=== PATIENT | male | born 1955 | race Caucasian/White ===

== ENCOUNTER → 2023-05-19 11:37 | Outpatient (REF) | payer MEDICARE, OTHER, SELFPAY ==
[2023-05-19 11:24] LABS: % Eosinophils 1.6 % (0-6); % Immature Granulocytes 0.3 % (0-0.5); % Neutrophils 79.1 % (42.2-75.2); Absolute Eosinophils 0.1 10^3/uL (0-0.7); Absolute Lymphocytes 0.6 10^3/uL (1.2-3.4); Absolute Monocytes 0.6 10^3/uL (0.1-0.6); Absolute Neutrophils 5.1 10^3/uL (1.4-6.5); Hematocrit 36.5 % (39.0-52.0); Hemoglobin 12.4 g/dL (13.0-18.0); Mean Corpuscular Hgb 30.5 pg (27.0-31.0); Mean Corpuscular Volume 89.9 fL (80.0-94.0); Mean Platelet Volume 8.9 fL (7.4-10.4); Platelet Count 177 10^3/uL (130-400); Red Blood Cell Count 4.06 10^6/uL (4.70-6.10); Red Cell Dist. Width 17.5 % (11.5-14.5); White Blood Cell Count 6.4 10^3/uL (4.8-10.8)
[2023-05-19 12:06] LABS: ALT (SGPT) 40 U/L (0-50); AST (SGOT) 51 U/L (17-59); Alkaline Phosphatase 82 U/L (38-126); Blood Urea Nitrogen 18 mg/dl (9-20); Calcium 9.2 mg/dl (8.4-10.2); Carbon Dioxide 25 mmol/L (22-30); Chloride 102 mmol/L (98-107); Glucose 84 mg/dl (70-99); Potassium 4.5 mmol/L (3.5-5.1); Sodium 137 mmol/L (135-145); Total Bilirubin 0.6 mg/dl (0.2-1.3); Total Protein 6.5 g/dl (6.3-8.2); eGFR > 60.00
[2023-05-19 12:36] LABS: TSH Reflex To Free T4 3.27 uIU/ml (0.47-4.68)
== END ==
LOC: OIDL 11:37
PROVIDERS: ATTENDING PHYSICIAN Internal Medicine Hematology & Oncology
DX: C79.9 Secondary malignant neoplasm of unspecified site (principal)
CPT/HCPCS: 80053; 84443; 85025

== ENCOUNTER → 2023-06-15 13:59 | Outpatient (REF) | payer MEDICARE, OTHER, SELFPAY ==
[2023-06-15 14:49] LABS: % Basophils 0.4 % (0-2); % Eosinophils 0.6 % (0-6); % Immature Granulocytes 0.6 % (0-0.5); % Neutrophils 78.4 % (42.2-75.2); Absolute Lymphocytes 0.8 10^3/uL (1.2-3.4); Absolute Monocytes 0.6 10^3/uL (0.1-0.6); Absolute Neutrophils 5.5 10^3/uL (1.4-6.5); Hematocrit 39.9 % (39.0-52.0); Hemoglobin 13.8 g/dL (13.0-18.0); Mean Corp Hgb Conc. 34.6 g/dL (33.0-37.0); Mean Corpuscular Hgb 31.4 pg (27.0-31.0); Mean Corpuscular Volume 90.7 fL (80.0-94.0); Mean Platelet Volume 8.6 fL (7.4-10.4); Nucleated Red Blood Cells % 0 % (-); Platelet Count 193 10^3/uL (130-400); Red Cell Dist. Width 14.3 % (11.5-14.5)
[2023-06-15 15:19] LABS: ALT (SGPT) 33 U/L (0-50); AST (SGOT) 40 U/L (17-59); Albumin 4.2 g/dl (3.5-5.0); Alkaline Phosphatase 99 U/L (38-126); Blood Urea Nitrogen 17 mg/dl (9-20); Calcium 9.6 mg/dl (8.4-10.2); Carbon Dioxide 25 mmol/L (22-30); Chloride 101 mmol/L (98-107); Glucose 115 mg/dl (70-99); Potassium 4.9 mmol/L (3.5-5.1); Sodium 133 mmol/L (135-145); Total Bilirubin 0.8 mg/dl (0.2-1.3); eGFR > 60.00
== END ==
LOC: REG 13:59
PROVIDERS: ATTENDING PHYSICIAN Internal Medicine Hematology & Oncology; FAMILY PHYSICIAN Physician Assistant
DX: C79.9 Secondary malignant neoplasm of unspecified site (principal); R59.9 Enlarged lymph nodes, unspecified; L02.214 Cutaneous abscess of groin; R88.8 Abnormal findings in other body fluids and substances; R97.0 Elevated carcinoembryonic antigen [CEA]; C44.82 Squamous cell carcinoma of overlapping sites of skin
CPT/HCPCS: 36415; 80053; 84443; 85025

== ENCOUNTER → 2023-07-06 17:14 | Outpatient (REF) | payer MEDICARE, OTHER, SELFPAY ==
[2023-07-06 17:43] LABS: % Basophils 0.5 % (0-2); % Eosinophils 0.6 % (0-6); % Immature Granulocytes 0.4 % (0-0.5); % Lymphocytes 10.4 % (20.5-51.1); % Monocytes 9.7 % (1.7-9.3); % Neutrophils 78.4 % (42.2-75.2); Absolute Eosinophils 0.1 10^3/uL (0-0.7); Absolute Lymphocytes 0.9 10^3/uL (1.2-3.4); Absolute Monocytes 0.8 10^3/uL (0.1-0.6); Absolute Neutrophils 6.5 10^3/uL (1.4-6.5); Hematocrit 43.6 % (39.0-52.0); Hemoglobin 14.3 g/dL (13.0-18.0); Mean Corp Hgb Conc. 32.8 g/dL (33.0-37.0); Mean Corpuscular Hgb 29.4 pg (27.0-31.0); Mean Corpuscular Volume 89.5 fL (80.0-94.0); Mean Platelet Volume 8.5 fL (7.4-10.4); Nucleated Red Blood Cells % 0 % (-); Platelet Count 247 10^3/uL (130-400); Red Blood Cell Count 4.87 10^6/uL (4.70-6.10); Red Cell Dist. Width 13.2 % (11.5-14.5); White Blood Cell Count 8.3 10^3/uL (4.8-10.8)
[2023-07-06 18:02] LABS: ALT (SGPT) 28 U/L (0-50); AST (SGOT) 28 U/L (17-59); Albumin 4.2 g/dl (3.5-5.0); Alkaline Phosphatase 91 U/L (38-126); Blood Urea Nitrogen 24 mg/dl (9-20); Calcium 9.7 mg/dl (8.4-10.2); Carbon Dioxide 27 mmol/L (22-30); Chloride 100 mmol/L (98-107); Glucose 96 mg/dl (70-99); Potassium 4.6 mmol/L (3.5-5.1); Sodium 140 mmol/L (135-145); Total Bilirubin 0.4 mg/dl (0.2-1.3); Total Protein 7.2 g/dl (6.3-8.2); eGFR > 60.00
[2023-07-06 18:29] LABS: TSH Reflex To Free T4 0.04 uIU/ml (0.47-4.68)
[2023-07-06 18:56] LABS: Free T4 2.85 ng/dl (0.78-2.19)
== END ==
LOC: REG 17:14
PROVIDERS: ATTENDING PHYSICIAN Internal Medicine Hematology & Oncology; FAMILY PHYSICIAN Physician Assistant
DX: C79.9 Secondary malignant neoplasm of unspecified site (principal); R59.9 Enlarged lymph nodes, unspecified; L02.214 Cutaneous abscess of groin; R88.8 Abnormal findings in other body fluids and substances; R97.0 Elevated carcinoembryonic antigen [CEA]; C44.82 Squamous cell carcinoma of overlapping sites of skin
CPT/HCPCS: 36415; 80053; 84439; 84443; 85025

== ENCOUNTER → 2023-07-17 08:31 | Outpatient (REF) | payer MEDICARE, OTHER, SELFPAY | LOC: WOUND 08:31 | PROVIDERS: ATTENDING PHYSICIAN Surgery; FAMILY PHYSICIAN Physician Assistant | DX: S31.109A Unspecified open wound of abdominal wall, unspecified quadrant without penetration into peritoneal cavity, initial encounter (principal); L59.8 Other specified disorders of the skin and subcutaneous tissue related to radiation; E11.69 Type 2 diabetes mellitus with other specified complication; C44.92 Squamous cell carcinoma of skin, unspecified; E66.01 Morbid (severe) obesity due to excess calories; I50.22 Chronic systolic (congestive) heart failure; Z68.41 Body mass index [BMI] 40.0-44.9, adult; I25.2 Old myocardial infarction; I10 Essential (primary) hypertension; Y83.8 Other surgical procedures as the cause of abnormal reaction of the patient, or of later complication, without mention of misadventure at the time of the procedure; X58.XXXA Exposure to other specified factors, initial encounter | CPT/HCPCS: 99204 ==

== ENCOUNTER → 2023-07-28 15:32 | Outpatient (REF) | payer MEDICARE, OTHER, SELFPAY ==
[2023-07-28 12:16] LABS: % Basophils 0.1 % (0-2); % Eosinophils 0.9 % (0-6); % Immature Granulocytes 0.7 % (0-0.5); % Lymphocytes 8.5 % (20.5-51.1); % Monocytes 9.8 % (1.7-9.3); Absolute Eosinophils 0.1 10^3/uL (0-0.7); Absolute Immature Granulocytes 0.1 10^3/uL (0-0.05); Absolute Lymphocytes 0.8 10^3/uL (1.2-3.4); Absolute Monocytes 0.9 10^3/uL (0.1-0.6); Absolute Neutrophils 7.4 10^3/uL (1.4-6.5); Hematocrit 38.3 % (39.0-52.0); Hemoglobin 13.1 g/dL (13.0-18.0); Mean Corp Hgb Conc. 34.2 g/dL (33.0-37.0); Mean Corpuscular Hgb 29.2 pg (27.0-31.0); Mean Corpuscular Volume 85.3 fL (80.0-94.0); Mean Platelet Volume 8.1 fL (7.4-10.4); Platelet Count 251 10^3/uL (130-400); Red Blood Cell Count 4.49 10^6/uL (4.70-6.10); Red Cell Dist. Width 13.3 % (11.5-14.5); White Blood Cell Count 9.2 10^3/uL (4.8-10.8)
[2023-07-28 14:40] LABS: ALT (SGPT) 26 U/L (0-50); AST (SGOT) 33 U/L (17-59); Albumin 3.8 g/dl (3.5-5.0); Alkaline Phosphatase 91 U/L (38-126); Blood Urea Nitrogen 26 mg/dl (9-20); Calcium 9.7 mg/dl (8.4-10.2); Carbon Dioxide 24 mmol/L (22-30); Chloride 98 mmol/L (98-107); Glucose 118 mg/dl (70-99); Potassium 5.2 mmol/L (3.5-5.1); Sodium 134 mmol/L (135-145); Total Bilirubin 0.5 mg/dl (0.2-1.3); Total Protein 6.7 g/dl (6.3-8.2); eGFR > 60.00
[2023-07-28 15:09] LABS: TSH Reflex To Free T4 < 0.02 uIU/ml (0.47-4.68)
[2023-07-28 15:38] LABS: Free T4 2.74 ng/dl (0.78-2.19)
== END ==
LOC: OIDL 15:32
PROVIDERS: ATTENDING PHYSICIAN Internal Medicine Hematology & Oncology
DX: C79.9 Secondary malignant neoplasm of unspecified site (principal)
CPT/HCPCS: 80053; 84439; 84443; 85025

== ENCOUNTER → 2023-08-17 16:22 | Outpatient (REF) | payer MEDICARE, OTHER, SELFPAY ==
[2023-08-17 17:06] LABS: % Basophils 0.8 % (0-2); % Eosinophils 1.6 % (0-6); % Immature Granulocytes 0.7 % (0-0.5); % Lymphocytes 15.6 % (20.5-51.1); % Monocytes 8.9 % (1.7-9.3); % Neutrophils 72.4 % (42.2-75.2); Absolute Basophils 0.1 10^3/uL (0-0.2); Absolute Eosinophils 0.1 10^3/uL (0-0.7); Absolute Monocytes 0.5 10^3/uL (0.1-0.6); Absolute Neutrophils 4.4 10^3/uL (1.4-6.5); Hematocrit 40.1 % (39.0-52.0); Hemoglobin 13.4 g/dL (13.0-18.0); Mean Corp Hgb Conc. 33.4 g/dL (33.0-37.0); Mean Corpuscular Hgb 28.3 pg (27.0-31.0); Mean Corpuscular Volume 84.6 fL (80.0-94.0); Mean Platelet Volume 8.6 fL (7.4-10.4); Nucleated Red Blood Cells % 0 % (-); Platelet Count 210 10^3/uL (130-400); Red Blood Cell Count 4.74 10^6/uL (4.70-6.10); Red Cell Dist. Width 14.8 % (11.5-14.5); White Blood Cell Count 6.1 10^3/uL (4.8-10.8)
[2023-08-17 17:32] LABS: ALT (SGPT) 23 U/L (0-50); AST (SGOT) 32 U/L (17-59); Albumin 4.1 g/dl (3.5-5.0); Alkaline Phosphatase 81 U/L (38-126); Blood Urea Nitrogen 22 mg/dl (9-20); Calcium 9.7 mg/dl (8.4-10.2); Carbon Dioxide 24 mmol/L (22-30); Chloride 101 mmol/L (98-107); Glucose 92 mg/dl (70-99); Potassium 4.7 mmol/L (3.5-5.1); Sodium 136 mmol/L (135-145); Total Bilirubin 0.5 mg/dl (0.2-1.3); eGFR > 60.00
[2023-08-17 17:58] LABS: TSH Reflex To Free T4 1.74 uIU/ml (0.47-4.68)
== END ==
LOC: REG 16:22
PROVIDERS: ATTENDING PHYSICIAN Internal Medicine Hematology & Oncology; FAMILY PHYSICIAN Physician Assistant
DX: C79.9 Secondary malignant neoplasm of unspecified site (principal); R59.9 Enlarged lymph nodes, unspecified; L02.214 Cutaneous abscess of groin; R88.8 Abnormal findings in other body fluids and substances; R97.0 Elevated carcinoembryonic antigen [CEA]; C44.82 Squamous cell carcinoma of overlapping sites of skin
CPT/HCPCS: 36415; 80053; 84443; 85025

== ENCOUNTER → 2023-08-18 12:09 | Outpatient (REF) | payer MEDICARE, OTHER, SELFPAY ==
[2023-08-18 13:50] LABS: ALT (SGPT) 25 U/L (0-50); AST (SGOT) 31 U/L (17-59); HDL Cholesterol 52 mg/dl; LDL Cholesterol, Calculated 48 mg/dl; Total Cholesterol 125 mg/dl (50-199); Triglyceride 128 mg/dl (10-149); Very Low Density Lipoprotein 25 mg/dl (0-30)
[2023-08-18 14:22] LABS: TSH Reflex To Free T4 1.89 uIU/ml (0.47-4.68)
[2023-08-18 14:28] LABS: Glycohemoglobin (HgbA1c) 6.8 % (4.0-5.6)
== END ==
LOC: REG 12:09
PROVIDERS: ATTENDING PHYSICIAN Internal Medicine Cardiovascular Disease; FAMILY PHYSICIAN Physician Assistant
DX: I48.0 Paroxysmal atrial fibrillation (principal); Z95.5 Presence of coronary angioplasty implant and graft; J44.9 Chronic obstructive pulmonary disease, unspecified; I50.22 Chronic systolic (congestive) heart failure; I25.5 Ischemic cardiomyopathy; I25.2 Old myocardial infarction; I25.10 Atherosclerotic heart disease of native coronary artery without angina pectoris; I10 Essential (primary) hypertension; E78.5 Hyperlipidemia, unspecified; E11.69 Type 2 diabetes mellitus with other specified complication; Z79.01 Long term (current) use of anticoagulants; R74.8 Abnormal levels of other serum enzymes; C44.92 Squamous cell carcinoma of skin, unspecified
CPT/HCPCS: 36415; 80061; 83036; 84443; 84450; 84460

== ENCOUNTER → 2023-08-25 12:16 | Outpatient (REF) | payer MEDICARE, OTHER, SELFPAY | LOC: RAD 12:16 | PROVIDERS: ATTENDING PHYSICIAN Internal Medicine Cardiovascular Disease | DX: I48.0 Paroxysmal atrial fibrillation (principal); Z79.899 Other long term (current) drug therapy | CPT/HCPCS: 71046 ==

== ENCOUNTER → 2023-09-07 16:26 | Outpatient (REF) | payer MEDICARE, OTHER, SELFPAY ==
[2023-09-07 17:09] LABS: % Basophils 0.6 % (0-2); % Immature Granulocytes 0.6 % (0-0.5); % Lymphocytes 11.1 % (20.5-51.1); % Monocytes 10.8 % (1.7-9.3); % Neutrophils 75.9 % (42.2-75.2); Absolute Eosinophils 0.1 10^3/uL (0-0.7); Absolute Lymphocytes 0.7 10^3/uL (1.2-3.4); Absolute Monocytes 0.7 10^3/uL (0.1-0.6); Absolute Neutrophils 4.8 10^3/uL (1.4-6.5); Hematocrit 40.3 % (39.0-52.0); Hemoglobin 13.6 g/dL (13.0-18.0); Mean Corp Hgb Conc. 33.7 g/dL (33.0-37.0); Mean Corpuscular Hgb 28.2 pg (27.0-31.0); Mean Corpuscular Volume 83.4 fL (80.0-94.0); Mean Platelet Volume 8.6 fL (7.4-10.4); Nucleated Red Blood Cells % 0 % (-); Platelet Count 196 10^3/uL (130-400); Red Blood Cell Count 4.83 10^6/uL (4.70-6.10); White Blood Cell Count 6.3 10^3/uL (4.8-10.8)
[2023-09-07 17:29] LABS: ALT (SGPT) 26 U/L (0-50); AST (SGOT) 29 U/L (17-59); Albumin 4.2 g/dl (3.5-5.0); Alkaline Phosphatase 90 U/L (38-126); Blood Urea Nitrogen 31 mg/dl (9-20); Calcium 9.8 mg/dl (8.4-10.2); Carbon Dioxide 22 mmol/L (22-30); Chloride 102 mmol/L (98-107); Glucose 145 mg/dl (70-99); Sodium 136 mmol/L (135-145); Total Bilirubin 0.7 mg/dl (0.2-1.3); eGFR 59.47
[2023-09-07 17:58] LABS: TSH Reflex To Free T4 4.44 uIU/ml (0.47-4.68)
== END ==
LOC: REG 16:26
PROVIDERS: ATTENDING PHYSICIAN Internal Medicine Hematology & Oncology; FAMILY PHYSICIAN Physician Assistant
DX: C79.9 Secondary malignant neoplasm of unspecified site (principal); R59.9 Enlarged lymph nodes, unspecified; L02.214 Cutaneous abscess of groin; R88.8 Abnormal findings in other body fluids and substances; R97.0 Elevated carcinoembryonic antigen [CEA]; C44.82 Squamous cell carcinoma of overlapping sites of skin
CPT/HCPCS: 36415; 80053; 84443; 85025

== ENCOUNTER → 2023-09-08 15:35 | Outpatient (REF) | payer MEDICARE, OTHER, SELFPAY ==
[2023-09-08 14:24] LABS: % Basophils 0.2 % (0-2); % Eosinophils 0.8 % (0-6); % Immature Granulocytes 0.5 % (0-0.5); % Lymphocytes 11.9 % (20.5-51.1); % Monocytes 11.3 % (1.7-9.3); % Neutrophils 75.3 % (42.2-75.2); Absolute Eosinophils 0.1 10^3/uL (0-0.7); Absolute Lymphocytes 0.7 10^3/uL (1.2-3.4); Absolute Monocytes 0.7 10^3/uL (0.1-0.6); Absolute Neutrophils 4.6 10^3/uL (1.4-6.5); Hematocrit 39.3 % (39.0-52.0); Hemoglobin 13.1 g/dL (13.0-18.0); Mean Corp Hgb Conc. 33.3 g/dL (33.0-37.0); Mean Corpuscular Hgb 28.2 pg (27.0-31.0); Mean Corpuscular Volume 84.7 fL (80.0-94.0); Mean Platelet Volume 8.8 fL (7.4-10.4); Platelet Count 201 10^3/uL (130-400); Red Blood Cell Count 4.64 10^6/uL (4.70-6.10); White Blood Cell Count 6.1 10^3/uL (4.8-10.8)
[2023-09-08 14:48] LABS: ALT (SGPT) 23 U/L (0-50); AST (SGOT) 26 U/L (17-59); Alkaline Phosphatase 91 U/L (38-126); Blood Urea Nitrogen 33 mg/dl (9-20); Calcium 9.6 mg/dl (8.4-10.2); Carbon Dioxide 20 mmol/L (22-30); Chloride 103 mmol/L (98-107); Glucose 129 mg/dl (70-99); Potassium 4.8 mmol/L (3.5-5.1); Sodium 137 mmol/L (135-145); Total Bilirubin 0.7 mg/dl (0.2-1.3); Total Protein 6.9 g/dl (6.3-8.2); eGFR > 60.00
== END ==
LOC: OIDL 15:35
PROVIDERS: ATTENDING PHYSICIAN Internal Medicine Hematology & Oncology
DX: C79.9 Secondary malignant neoplasm of unspecified site (principal)
CPT/HCPCS: 80053; 85025

== ENCOUNTER 2023-09-20 23:50 | Inpatient (IN) | payer MEDICARE, OTHER, SELFPAY ==
[2023-09-20] VITALS (12 sets, daily range): BP systolic 83–175; BP diastolic 38–68; BMI 37.3
[2023-09-20 17:23] LABS: % Basophils 0.3 % (0-2); % Eosinophils 0.2 % (0-6); % Immature Granulocytes 0.6 % (0-0.5); % Lymphocytes 7.9 % (20.5-51.1); % Monocytes 2.4 % (1.7-9.3); % Neutrophils 88.6 % (42.2-75.2); Absolute Immature Granulocytes 0.1 10^3/uL (0-0.05); Absolute Lymphocytes 0.7 10^3/uL (1.2-3.4); Absolute Monocytes 0.2 10^3/uL (0.1-0.6); Absolute Neutrophils 7.7 10^3/uL (1.4-6.5); Hematocrit 47.4 % (39.0-52.0); Hemoglobin 15.5 g/dL (13.0-18.0); Mean Corp Hgb Conc. 32.7 g/dL (33.0-37.0); Mean Corpuscular Volume 85.6 fL (80.0-94.0); Mean Platelet Volume 8.5 fL (7.4-10.4); Nucleated Red Blood Cells % 0 % (-); Platelet Count 246 10^3/uL (130-400); Red Blood Cell Count 5.54 10^6/uL (4.70-6.10); Red Cell Dist. Width 15.8 % (11.5-14.5); White Blood Cell Count 8.7 10^3/uL (4.8-10.8)
[2023-09-20 17:32] LABS: INR 2.84; PT 29.8 Sec (11.4-14.6)
[2023-09-20 17:36] LABS: Lactic Acid 5.1 mmol/L (0.7-2.0)
[2023-09-20 17:38] LABS: ALT (SGPT) 328 U/L (0-50); AST (SGOT) 729 U/L (17-59); Albumin 4.7 g/dl (3.5-5.0); Alkaline Phosphatase 279 U/L (38-126); Blood Urea Nitrogen 29 mg/dl (9-20); Calcium 9.5 mg/dl (8.4-10.2); Carbon Dioxide 20 mmol/L (22-30); Chloride 103 mmol/L (98-107); Estimated Creatinine Clearance 86 ml/min; Glucose 189 mg/dl (70-99); Potassium 5.2 mmol/L (3.5-5.1); Sodium 139 mmol/L (135-145); Total Bilirubin 1.7 mg/dl (0.2-1.3); eGFR > 60.00
[2023-09-20 17:46] LABS: NT-proBNP 1870 pg/ml; Troponin I 0.015 ng/ml
[2023-09-20 18:12] LABS: Lipase 153 U/L (23-300)
[2023-09-20] MEDS: NSS 1000 IV ×2 (18:12→22:51)
--- NOTE | 2023-09-20 18:20 | ED.GENMED ---
History of Present Illness
General
Chief Complaint: Breathing Problem
Source: patient and spouse
Exam Limitations: none
Time Seen by Provider: 09/20/23 17:50
Nursing documentation reviewed up to this point in time: agreed with
Travel History
Have you had any contact with someone who has COVID-19?: No
Do you have any symptoms of coronavirus? Fever > 100 degrees, chills, cough, shortness of breath, sore throat, loss of taste or smell, muscle aches, or headache?: No
History of Present Illness
History of Present Illness:
Pleasant 68-year-old male that presents with chills with some nausea that has been present since noon. Patient took a nap and woke up with continual chills. He does have a history of COPD but reports shortness of breath since around 4 PM. Patient
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 He has had recurrent left groin fluid collections. Unfortunately the primary is unknown. He has had surgical drainage in October with chemotherapy and radiation therapy that ended this past
March. Patient had a surgical procedure in May 13 2 incise and drain this left groin abscess. Patient follows with [facility] and has weekly packing. They use iodoform but today he states that the wound was draining more
copiously.
Vital signs are stable. Patient not hypoxic
Nursing note reviewed. I agree with nursing documentation up to this point in time.
Home Meds and allergies reviewed.
NUMBER AND COMPLEXITY OF PROBLEMS ADDRESSED AT THE ENCOUNTER
� Chronic conditions affecting care: COPD, subacute skin wound to the left lower quadrant, diabetic, extensive cardiac history, squamous cell cancer
� Acute Exacerbation and/or Progression of Chronic Illness:
� Differential Diagnosis includes: Reaccumulation of fluids, liver function issues
AMOUNT AND/OR COMPLEXITY OF DATA TO BE REVIEWED AND ANALYZED
I performed an independent evaluation of the following and my interpretation is:
EKG: EKG shows sinus rhythm rate of 79 with a lot of artifact. Normal axis, normal intervals no evidence of acute ischemia present. This will be repeated.
CT:
X-rays:
Ultrasound:
Laboratory Studies: T. bili is 1.7, AST is 729, ALT is 328, alk phos is 279. proBNP is 1870, troponin 0.015. Lipase is 153.
Other:
Review of other/old records:
Clinical information was obtained by an independent historian:
Prescriptions/Medications Considered but not given:
Further testing considered but not performed:
RISK OF COMPLICATIONS AND/OR MORBIDITY OR MORTALITY OF PATIENT MANAGEMENT
Social determinants of health affecting care: Good Social Support
Discussion with other providers:
Escalation of care including admission/observation vs risk of discharge considered:
CRITICAL CARE NOTE:
Total Time (exclusive of procedures):
Update:
Past History
Past History
ED Past Medical History: Arrthythmia (Atrial fibrillation), CAD, CHF, COPD, HTN, NIDDM and CO
ED Past Surgical History: Cardiac (Cardioversion)
Social History
Tobacco: Former smoker
Alcohol: None
Drug: None
Personal:
Living: with family
Family History
Family History: Other (Noncontributory)
Phy Exam
General Physical Exam
General Presentation: well appearing
General age: appears stated age
General Skin: warm
General Habitus: normal
General Mental: alert
General Hydration: appears well hydrated
ENT Exam
ENT Exam: EOMI, pharynx normal, neck supple and normocephalic
Eye Exam
Eye Exam: PERRL, cornea clear and conjunctiva normal
Cardiovascular Exam
Cardiovascular Exam: regular rate/rhythm, no edema, no murmur and normal peripheral pulses
Pulmonary Exam
Pulmonary Exam: lungs clear
Cough: coarse cough
Gastrointestinal Exam
Gastrointestinal Exam: normal bowel sounds and non tender
Palpation: left upper quadrant: Moderate tenderness and right upper quadrant: Moderate tenderness
Neurological Exam
Neurological Exam: alert and oriented x3
Musculoskeletal Exam
Musculoskeletal Exam: full ROM
Skin Exam
Skin Exam: normal color and warm/dry
Psychiatric Exam
Psychiatric Exam: normal mood/affect
Scores
Heart Failure Risk
Heart Failure Risk Score: Not Applicable
Course
Orders/Labs/Results
Orders:
Orders
09/20/23 16:44
Electrocardiogram (*1) Urgent
Reason for Study: Other
Other Reason for Exam: Respiratory Distress
EKG- Treatment ONCE
CR Chest - 2 Views Urgent
Comment:
Reason For Exam: respiratory distress
09/20/23 17:12
Complete Blood Count/With Diff Urgent
Comprehensive Metabolic Panel Urgent
Lactic Acid Q4H
Comment: WITH 1ST SET OF BLOOD CULTURES,CANCEL 2ND LACTIC ACID IF FIRST <2
Lipase Urgent
NT-proBNP Urgent
Prothrombin Time Urgent
Troponin I Urgent
Blood Culture Q30M
NIMO Source: Blood/Venous
Specimen Description:
Comment: FROM SEPARATE SITES
09/20/23 17:53
Add On- LAB Urgent
Tests Added?: lipase
09/20/23 18:07
0.9% Sodium Chloride 1000 ml [Nss] 1,000 ml IV BOLUS
US Abdomen Complete/Upper Urgent
Comment:
Reason For Exam: elevated LFT.
09/20/23 18:18
CT Abd/pelvis W Iv Cont Urgent
Comment:
Reason For Exam: llq woound with purulent drainage
09/20/23 18:19
0.9% Sodium Chloride 1000 ml [Nss] 1,500 ml IV BOLUS
09/20/23 18:22
Blood Culture Q30M
NIMO Source: Blood/Venous
Specimen Description:
Comment: FROM SEPARATE SITES
09/20/23 18:30
EKG [Electrocardiogram (*1)] Urgent
Reason for Study: Fatigue / Weakness
EKG- Treatment ONCE
09/20/23 18:40
Piperacillin/Tazo 4.5 Gram [Zosyn] 4.5 gram in 100 ml IV NOW
09/20/23 19:00
Blood Culture Urgent
NIMO Source: Blood/Venous
Specimen Description:
Date Specimen was Collected: 09/20/23
Time Specimen was Collected: 18:58
Wound Culture [Wound/Abscess/Other Culture] Urgent
NIMO Source: Abdomen
Specimen Description:
Date Specimen was Collected: 09/20/23
Time Specimen was Collected: 18:58
09/20/23 20:17
Acetaminophen [Tylenol] 650 mg PO NOW STA
09/20/23 20:46
Lactic Acid Q4H
Comment: WITH 1ST SET OF BLOOD CULTURES,CANCEL 2ND LACTIC ACID IF FIRST <2
09/20/23 20:47
Lorazepam [Ativan] 1 mg IV NOW STA
09/20/23 22:50
0.9% Sodium Chloride 1000 ml [Nss] 1,000 ml IV BOLUS
09/20/23 23:40
Admit/Transfer Patient As Directed
Co-Sign Provider:
Level of Care: Inpatient admission
Assign to:: ICU
Physician / Group: Christian
Diagnosis: Sepsis, Acute Cholecystitis, L Groin Abscess
Reason for Hospitalization: Sepsis, Acute Cholecystitis, L Groin Abscess
Expected length of stay greater than two midnights?: Yes
ELOS- Estimated Length of Stay in days: 5
I certify the patient meets the requirements for IP care: Yes
09/20/23 23:41
Code Status As Directed
Resuscitation Status: Full Code
09/20/23 23:53
NORepinephrine 4 MG/250 ML [Levophed] 4 mg in 250 ml IV PER PROTOCOL
Initial dose in mcg/min, then titrate:: 5
Titrate to keep:: SBP > 90 mmHg
Titrate by mcg/min:: 1-2 mcg/min
Frequency of titrations (minutes):: 5
Maximum dose in ICU in mcg/min:: 30
Maximum dose in IMU in mcg/min:: 8
Maximum dose in IVU in mcg/min:: 4
Begin to taper infusion when:: Remained at goal for 4hrs
Taper by mcg/min:: 1-2 mcg/min
Frequency of taper (minutes) if patient maintains goal:: 30
Taper to off?: Yes
If infusion off & no longer maintaining goal:: Contact Provider
09/21/23 01:37
0.9% Sodium Chloride 1000 ml [Nss] 1,000 ml IV 100 mls/hr
Acetaminophen [Tylenol] 650 mg PO Q4HPRN PRN
Dextrose 50%-Water [Dextrose 50% Syringe] 12.5 grams IV [id number] PRN
Glucagon [GlucaGen] 1 mg IM PRN PRN
HYDROmorphone [Dilaudid] 0.5 mg IV Q4HPRN PRN
Ondansetron Injectable [Zofran] 4 mg IV Q6HPRN PRN
VANCOMYCIN Pharmacy to Dose [VANCOCIN Pharmacy to Dose] 1 each Pharmacy To Prepare [Call Pharmacy To Prepare] 0 ml IV PER PROTOCOL
09/21/23 01:37
Consult Notification Routine
Specialty to Notify: Gastroenterology
Date consulting provider notified: 09/21/23
Time consulting provider notified: 08:37
Notified:: Provider
Consult Notification Routine
Specialty to Notify: Hair Cutter
Date consulting provider notified: 09/21/23
Time consulting provider notified: 08:37
Notified:: Provider
GASTROINTESTINAL CONSULT Routine
Consulting Provider: Miguel Loo
Was physician already notified: No
Reason for consult: Abnormal LFTs, Cholecystitis
Hair Cutter Consult Routine
Consulting Provider: Missael Li
Was physician already notified: No
Reason for consult: Septic shock
SURGICAL CONSULT Routine
Consulting Provider: Jesus Sam
Was physician already notified: Yes
Reason for consult: Cholecystitis / L Groin Abscess
Activity As Directed
Activity Level: Bedrest
Bedside Glucose Monitoring As Directed
Frequency: AC&HS
Additional Instructions:: Change to q6h if pt on TPN, tube feeding or not eating
Bladder Scan As Directed
Follow Bladder Retention/Intermittent Cath Algorithm?: Yes
PRN if no void in __ hours: 6
Frequency: Per Retention Algorithm
If Bladder Scan Result >: 400
then:: Straight cath
EKG with chest pain [ECG as needed] As Directed
ECG as needed for:: Chest Pain
I/O [Intake/ Output] As Directed
Frequency: Per unit guidelines
Pneumatic Compression Sleeves As Directed
Type: Knee high
Straight Cath As Directed
Frequency: Per Retention Algorithm
Additional Instructions: straight cath as needed per acute urinary retention algorithm for 24 hrs
Additional Instructions: for bladder scan greater than 400 mL
Vital Signs As Directed
Frequency: Per unit guidelines
Weight As Directed
Frequency: Daily
Incentive Spirometry [Rx Incentive Spirometry] [RESP] Routine
Frequency: q1h while awake
Oxygen Therapy [O2 Therapy] [RESP] Routine
Titrate/Wean O2 to maintain O2 sat greater than (%): 94
DX Deep Vein Thrombosis Video Routine
09/21/23 02:00
Piperacillin/Tazo 4.5 Gram [Zosyn] 4.5 gram in 100 ml IV Q6H
09/21/23 Breakfast
NPO
Allow oral meds: Yes
Allow clear liquids: Sips of Clears
Insulin Aspart Corrective Mod [Novolog Flexpen-Moderate Resistance] See Protocol SC Q6
09/21/23 06:07
Prothrombin Time IN AM
09/21/23 06:08
Complete Blood Count/No Diff IN AM
Glycohemoglobin (HgbA1c) IN AM
09/21/23 08:00
Pantoprazole [Protonix IV] 40 mg IV DAILY
09/22/23 03:47
Prothrombin Time IN AM
09/23/23 02:46
Prothrombin Time IN AM
09/24/23 06:00
Prothrombin Time IN AM
Abnormal Lab Results
09/20/23 09/20/23
17:12 20:46
MCHC 32.7 L g/dL
(33.0-37.0)
RDW 15.8 H %
(11.5-14.5)
Abs Immat Gran (auto) 0.1 H 10^3/uL
(0-0.05)
Absolute Neuts (auto) 7.7 H 10^3/uL
(1.4-6.5)
Absolute Lymphs (auto) 0.7 L 10^3/uL
(1.2-3.4)
Immature Gran % 0.6 H %
(0-0.5)
Neutrophils % 88.6 H %
(42.2-75.2)
Lymphocytes % 7.9 L %
(20.5-51.1)
PT 29.8 H Sec
(11.4-14.6)
Potassium 5.2 H mmol/L
(3.5-5.1)
Carbon Dioxide 20 L mmol/L
(22-30)
BUN 29 H mg/dl
(9-20)
Glucose 189 H mg/dl
(70-99)
Lactic Acid 5.1 H* mmol/L 2.7 H mmol/L
(0.7-2.0) (0.7-2.0)
Total Bilirubin 1.7 H mg/dl
(0.2-1.3)
AST 729 H* U/L
(17-59)
ALT 328 H U/L
(0-50)
Alkaline Phosphatase 279 H U/L
(38-126)
09/20/23 17:12
09/20/23 17:12
Vital Signs
Initial and Last Documented VS:
Initial Vital Signs
Temp Pulse Resp BP Pulse Ox
97.9 F 72 24 96/64 98
09/20/23 16:41 09/20/23 16:41 09/20/23 16:41 09/20/23 16:41 09/20/23 16:41
Last Documented Vital Signs
Temp Pulse Resp BP Pulse Ox
98.5 F 56 17 152/62 96
09/23/23 03:03 09/23/23 04:00 09/23/23 04:00 09/23/23 03:03 09/22/23 20:12
*Radiology
Radiology exam reviewed: radiology read reviewed
*Pulse Oximetry
Patient hypoxic: no
*Critical Care Note
Total Time (30-74mins, 75-104mins- exclusive of procedures): 30
comment:
Critical care statement: A total of 30 minutes of critical care time was provided for this patient. This time is separate from time utilized to perform the aforementioned documented procedures. Aggregate critical care time includes only time
during which I was engaged in work directly related to the patient's care, as described above, whether at the bedside or elsewhere in the Emergency Department.
Patient Management
Social determinants of health affecting care: Strong social support
Discussion with other providers: Hospitalist and Edge Burnisher (Cecy)
Update Note
Update Note:
IMPRESSION:
1. SEVERE DIFFUSE LIVER DISEASE.
2. Distended gallbladder and mild diffuse gallbladder wall thickening.
3. No sonographic evidence for biliary obstruction.
Patient received a dose of Ativan as he was agitated.
[facility] texted Dr. Sam- who agreed with plan.
ED Attending Note
-
Portions of this chart may have been created with voice recognition software.� Occasional wrong word or��sound alike� substitutions may have occurred due to the inherent limitations of voice recognition software.
Discharge Plan
Departure
Patient Disposition: Admit
Date of Disposition: 09/20/23
Time of Disposition: 22:13
Presentation/result/management discussed w/ accepting MD/DO: Hospitalist
Condition: Good
Discharge Problem:
Abscess of left groin, Elevated liver function tests, Acute hyperkalemia, Abdominal pain
Interventions
Interventions:
*General Assessment Last Done: 09/20/23 18:25
*Neglect/Abuse Screening Last Done: 09/20/23 16:41
ED- Fall Risk Assessment Last Done: 09/20/23 16:41
*Nursing Disposition Last Done: 09/21/23 01:14
ED- Cardiac Assessment Last Done: 09/20/23 23:42
ED- Pulmonary Assessment Last Done: 09/20/23 23:42
Discharge Date and Time
Discharge Date/Time: 09/21/23 01:18
[2023-09-20] MEDS: NSS 1500 IV (18:24)
[2023-09-20] MEDS: ZOSYN 100 IV (18:56)
[2023-09-20] MEDS: TYLENOL 650 MG PO (20:43)
[2023-09-20] MEDS: ATIVAN 1 MG IV (20:49)
[2023-09-20 21:12] LABS: Lactic Acid 2.7 mmol/L (0.7-2.0)
--- NOTE | 2023-09-20 23:52 | HPS.HSE ---
Family Physician
-
Family Physician: Jil Trotter
Chief Complaint
-
Nausea, chills
History of Present Illness
Patient is a 68y M with PMH significant for ASCVD, A-Fib, DM-II and now-chronic L groin abscess who presents to ED complaining of nausea, chills and SOB. Patient states that he was feeling fairly well yesterday. Today he felt some mild nausea
in the AM. He took a nap and when he woke he had shaking chills and nausea. He felt SOB and presented to the ED for further evaluation. He denies any chest pain, cough, etc.
Patient has a L groin wound for which he has been followed at [facility]. He has had issues with recurrent fluid accumulation requiring drain placement. His most recent drain was removed about 2 weeks ago.
He does state that he has some persistent drainage from the L groin site.
He denies any changes to his medications since his last visit here in April.
In the ED, patient is noted to be hypotensive despite fluid administration with elevated lactate and markedly abnormal LFTs.
Medical History
Past Medical History
Past Medical History: Reports Other
Additional Past Medical History:
ASCVD
Chronic HFmrEF
Obesity
Basal cell carcinoma of the left inguinal area
Osteoarthritis
Hypertension
History of GI bleed
Atrial Fibrillation
COPD
DM-II
Past Surgical History: Reports Other
Additional Past Surgical History:
Cardiac cath and stenting
Left knee MCL repair
Bilateral inguinal hernia repair
I&D and incision of the left inguinal hernia and abscesses cancer
I&D Left Groin Abscess (04/2023)
Social History
Tobacco: Non-smoker
Alcohol: Occasional (Rare)
Drug: None
Personal:
Living: With Family
Family History
Family History: CAD, Diabetes and Hypertension
Allergies / Home Medications
Allergies reflects when Allergies were last updated in [facility].
Home Medications with original date entered in [facility]
Allergy/Medication List:
Allergies
Allergy/AdvReac Type Severity Reaction Status Date / Time
No Known Allergies Allergy Verified 09/20/23 16:41
Home Medications
metformin 1,000 mg tablet 1,000 mg PO BIDWMEAL Diabetes 04/15/16
atorvastatin 80 mg tablet 80 mg PO QPM #30 tabs 11/13/16
amiodarone 200 mg tablet (Pacerone) 200 mg PO DAILY Arrhythmia 01/15/20
dapagliflozin propanediol 10 mg tablet (Farxiga) 10 mg PO DAILY Diabetes ##0 01/15/20
glipizide 10 mg tablet, extended release 24 hr 10 mg PO DAILY Diabetes ##0 01/15/20
lisinopril 40 mg tablet 40 mg PO DAILY Blood pressure 01/15/20
umeclidinium 62.5 mcg-vilanterol 25 mcg/actuation powdr for inhalation (Anoro Ellipta) 1 puff inhalation R DAILY Lung/breathing issues 01/15/20
warfarin 5 mg tablet (Jantoven) 5 mg PO SUTUTHFRSA@1800 Blood clot prevention/tx 01/15/20
metoprolol succinate 50 mg tablet,extended release 24 hr 50 mg PO HS Blood Pressure 10/22/22
metoprolol succinate 25 mg tablet,extended release 24 hr 25 mg PO DAILY Blood Pressure 10/24/22
albuterol sulfate 90 mcg/actuation aerosol inhaler 2 puff inhalation R Q6HPRN PRN sob/wheezing 09/20/23
warfarin 5 mg tablet 2.5 mg PO WE@1800 09/20/23
Review of Systems
-
History Source: Patient
A 12 point ROS was completed and negative except as noted: Yes
Constitutional: Reports Fever, Fatigue and Chills
EENT: Denies Sore Throat
Respiratory: Reports Trouble Breathing; Denies Cough
Cardiac: Denies Chest Pain or Palpitations
Abdomen/GI: Reports Abdominal Pain, Nausea and Anorexia; Denies Vomiting, Diarrhea, Constipated, Bloody Stools or Black Stools
: Denies Dysuria, Frequency or Flank Pain
Musculoskeletal: Denies Joint Pain or Edema
Skin: Reports Other (Groin wound / drainage - chronic and unchanged per patient.)
Neurological: Denies Dizzy or Headache
Psych: Denies Depression or Anxiety
Physical Exam
Vital Signs
Vital Signs
Temp Pulse Resp BP Pulse Ox
101.9 F H 63 26 88/38 95
09/20/23 23:15 09/20/23 23:18 09/20/23 23:18 09/20/23 23:18 09/20/23 23:42
Physical Exam
General: Other (68y M ill-appearing. )
HEENT: Other (Thick neck. Dry MM.)
Respiratory: Other (Decreased at bases - otherwise clear.)
Cardiac: S1/S2 and Regular Rhythm; No Murmur
GI: Other (Obese, Pos tenderness in the RUQ and the LLQ.)
Musculoskeletal: No Clubbing, No Cyanosis and No Edema
Skin: Other (L groin with deep wound packed with gauze. Malodorous yellow drainage appreciated. No bleeding.)
Neuro: AO x 3
Laboratory Results
-
09/20/23 17:12
09/20/23 17:12
Laboratory Results
PT 29.8 Sec (11.4-14.6) H 09/20/23 17:12
INR 2.84 09/20/23 17:12
Lactic Acid 2.7 mmol/L (0.7-2.0) H 09/20/23 20:46
Total Bilirubin 1.7 mg/dl (0.2-1.3) H 09/20/23 17:12
AST 729 U/L (17-59) H* 09/20/23 17:12
ALT 328 U/L (0-50) H 09/20/23 17:12
Alkaline Phosphatase 279 U/L (38-126) H 09/20/23 17:12
Troponin I 0.015 ng/ml 09/20/23 17:12
Lipase 153 U/L (23-300) 09/20/23 17:12
Impression/Plan
-
A/P: Patient is a 68y M with PMH significant for ASCVD, A-Fib, DM-II and L groin abscess who presents to ED complaining of shaking chills, nausea and SOB.
Septic Shock
- Admit to the ICU for further evaluation and treatment.
- Patient presented with fever, tachypnea, lactic acidosis and hypotension refractory to volume support.
- Potential sources of infection include cholecystitis versus recurrent L groin abscess.
- Supportive care including IVFs, pressor support, antipyretics, etc.
- Would consider PICC placement in the AM if still requiring pressors.
- Treat infectious sources as outlined below.
- Residential Coordinator evaluation.
- Follow for clinical improvement.
Acute Cholecystitis
Abnormal LFTs
- Markedly elevated LFTs from labs done only a few weeks ago.
- No evident new meds by list or patient recollection.
- Pos RUQ tenderness on exam and imaging suggests wall thickening / pericholecystic fluid.
- IV abx with Zosyn.
- GI and Surgery consulted for further evaluation / recommendations.
- Follow for improvement in LFTs / clinical changes.
Left Groin Abscess
- Site of initial skin cancer excision - since developed into chronic abscess.
- Had I&D done here April 2023. Cultures at that time grew SCN.
- Currently followed at [facility] and had most recent drain pulled about 2 weeks ago.
- Wound packed with gauze. Pos purulent appearing drainage.
- Surgery eval as noted above for wound care / ? repeat I&D.
- Consider IR eval for drain replacement - though wound already open to the surface.
- Follow-up repeat culture data.
ASCVD
Chronic HFmrEF
Paroxysmal Atrial Fibrillation
Benign Hypertension (currently hypotensive)
- No current complaints of chest pain. Initial troponin unremarkable despite acute illness.
- Hold PO meds acutely - including amiodarone, metoprolol, etc.
- Follow for improvement in sepsis / shock and resume CV meds as appropriate.
- Holding Coumadin given potential need for interventions / procedures.
- Vit K x 1 dose now. Follow daily INR.
- Update Echo - last done in 2020.
DM-II
- Stable. Follow glucose and cover with SSI as needed.
- Update A1C.
COPD without Acute Exacerbation
- No evident wheezing appreciated on exam.
- Nebs PRN.
- Follow for any changes.
Obesity due to excess calories
- Affects all aspects of care.
- Encourage healthy diet and increased activity with goal of weight loss.
DVT Prophylaxis: SCDs - Holding Coumadin
Code Status: Full
[2023-09-21] VITALS (56 sets, daily range): BP systolic 55–189; BP diastolic 29–160; BMI 37.3; BMI 38.6
[2023-09-21] MEDS: LEVOPHED 250 IV (00:08)
[2023-09-21] MEDS: AQUAMEPHYTON 51 MG IV (00:38)
[2023-09-21 01:01] LABS: Creatine Phosphokinase 72 U/L (55-170)
[2023-09-21] MEDS: NSS 1000 IV ×3 (02:02→18:07)
[2023-09-21] MEDS: ZOSYN 100 IV ×4 (02:40→20:14)
[2023-09-21] MEDS: VANCOCIN 540 MG IV (03:25)
--- NOTE | 2023-09-21 04:20 | W.PN.SEPSIS ---
Sepsis
Vital Signs
Temp Pulse Resp BP Pulse Ox
99.2 F 57 25 85/37 96
09/21/23 02:09 09/21/23 04:45 09/21/23 04:45 09/21/23 04:45 09/21/23 04:45
Physical Exam
Physical Exam:
A focused exam was performed after fluid resuscitation.
Capillary Refill
Bilateral Upper Extremity:
Marlene Time: Less than 3 sec
Bilateral Lower Extremity:
Marlene Time: Less than 3 sec
Pulse Evaluation
Bilateral Radial:
Pulse Evaluation: Present
Bilateral Dorsalis Pedis:
Pulse Evaluation: Present
[2023-09-21 06:25] LABS: Hematocrit 39.2 % (39.0-52.0); Mean Corp Hgb Conc. 33.2 g/dL (33.0-37.0); Mean Corpuscular Hgb 28.4 pg (27.0-31.0); Mean Corpuscular Volume 85.6 fL (80.0-94.0); Mean Platelet Volume 8.5 fL (7.4-10.4); Platelet Count 181 10^3/uL (130-400); Red Blood Cell Count 4.58 10^6/uL (4.70-6.10); White Blood Cell Count 9.4 10^3/uL (4.8-10.8)
[2023-09-21 06:32] LABS: INR 2.24; PT 24.6 Sec (11.4-14.6)
[2023-09-21 06:33] LABS: Glucose - Point of Care 167 mg/dl (70-99)
[2023-09-21 06:33] LABS: APTT 44.5 Sec (23.4-35.0)
[2023-09-21 06:48] LABS: Albumin 3.5 g/dl (3.5-5.0); Alkaline Phosphatase 270 U/L (38-126); Blood Urea Nitrogen 26 mg/dl (9-20); Calcium 8.4 mg/dl (8.4-10.2); Carbon Dioxide 23 mmol/L (22-30); Chloride 108 mmol/L (98-107); Direct Bilirubin 2.8 mg/dl (0.0-0.4); Estimated Creatinine Clearance 81 ml/min; Glucose 105 mg/dl (70-99); Magnesium 1.3 mg/dl (1.6-2.3); Phosphorus 3.4 mg/dl (2.5-4.5); Potassium 4.9 mmol/L (3.5-5.1); Sodium 139 mmol/L (135-145); Total Bilirubin 3.6 mg/dl (0.2-1.3); Total Protein 6.4 g/dl (6.3-8.2); eGFR > 60.00
--- NOTE | 2023-09-21 06:50 | PTCARENOTE ---
Pt arrived to ICU room 3357 from ER at 0127. Received pt on Levophed at 2 mcg/min. SR/SB on monitor, 60s/50s. Pt on 2LNC, SpO2 97%. IVF, IV abx started. Levophed titrated for goal MAP >65, pt's diastolic BP has been low which makes the MAP low
despite a systolic >100, therefore Levophed protocol changed to goal systolic BP > 90. Pt able to be weaned off Levo by 0500. Wound to left groin, see skin/wound management flowsheet for full details, wound care consult placed. Call daniels within
reach, bed alarm activated.
[2023-09-21 06:57] LABS: ALT (SGPT) 761 U/L (0-50); AST (SGOT) 1139 U/L (17-59)
[2023-09-21] MEDS: PROTONIX IV 40 MG IV (07:55)
[2023-09-21] MEDS: NSS (PRESERVATIVE FREE) 10 ML IV (07:55)
--- NOTE | 2023-09-21 08:03 | CON.GI ---
Addendum entered and electronically signed by Miguel Loo MD 09/21/23 14:36:
Patient seen and examined, agree with nurse practitioner note. Patient with complicated medical history including A-fib on Coumadin, diabetes, COPD, nonmelanoma skin cancers and groin abscess presents with abdominal pain and chills. He describes
epigastric pain, and chills. Upon presentation he is found to have markedly elevated LFTs along with CT scan with gallbladder wall thickening and mild edema versus fluid. There is no significant biliary duct dilation. His LFTs were greater than
the thousand. He has been on Augmentin recently for his abscess. Denies any other sick contacts. He is currently feeling much better overall. On exam he has no significant abdominal tenderness. At this point his elevated LFTs are more likely
related to hypotension and low flow. The hypotension may have been precipitated by cholecystitis. CBD stone is also possible though seems a bit less likely given no CBD dilation, though could have had a stone that spontaneously passed. Other
etiologies including drug-induced liver injury and viral hepatitis seem very unlikely given his history of biliary colic. At this point we will continue to trend labs, antibiotics, await MRI report. Surgery is following. Will await hepatitis
panel and again continue close observation.
Addendum entered and electronically signed by SHIRLEY Smith 09/21/23 09:13:
clarification pt had Squamous of groin and basal cell of face. Complete chemo/rad March, Now on Libtayo for basal cell.
Addendum entered and electronically signed by SHIRLEY Smith 09/21/23 09:09:
reviewed with surgical team agree with MRI
Addendum entered and electronically signed by SHIRLEY Smith 09/21/23 09:06:
Pt now agreeable to stay. currently off pressors, will add MRI with MRCP and hepatitis panel
Original Note:
Consultation
-
Date/Time Consultation Requested: 09/21/23 0137
Date/Time Consultation Performed: 09/21/23 0800
Requesting Provider: Prince Gonzales DO
Performing Provider: SHIRLEY Santana
Reason for Consultation: SHIRLEY Santana, Elmer Loo MD
Medical History
Chief Complaint / HPI
Chief Complaint: abdominal pain
History of Present Illness:
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 He now
presents with onset of chill and epigastric pain with concern for sepsis. On admission noted with bili 1.7, AST 729, ALT 328 and alk phos 279 with further rise after admission. Imaging with US with noted severe diffuse liver disease, distended GB
with thickening and CT with groin abscess, mild GBWT with edema wall vs fluid, acute cholecystitis note excluded. Pt admits to 2 dose of Tylenol with prior biopsy but no chronic use. No ETOH use. + recent Augementin use finished 3-4 weeks ago.
Denies any other new medications.
At this time patient admits to epigastric pain prior to admission. Worse with eating. He did have some associated nausea but denies dysphagia, GERD, diarrhea, constipation or rectal bleeding. No EGD in past but colonoscopy completed 2019
with diverticulosis and hemorrhoids.
Past Medical History
Past Medical History: Arrhythmias (afib), COPD, NIDDM and Other (ASCVD)
Past Surgical History: Other (groin abscess drainage)
Social History
Tobacco: Former Smoker
Alcohol: None
Drug: None
Personal:
Living: With Family
Employment: Retired
Family History
Family History: Other (family hx panc CA)
Allergies / Home Medications
Allergy/AdvReac Type Severity Reaction Status Date / Time
No Known Allergies Allergy Verified 09/20/23 16:41
�Medication �Instructions �Recorded
metformin 1,000 mg tablet 1,000 mg PO BIDWMEAL Diabetes 04/15/16
atorvastatin 80 mg tablet 80 mg PO QPM #30 tabs 11/13/16
amiodarone 200 mg tablet (Pacerone) 200 mg PO DAILY Arrhythmia 01/15/20
dapagliflozin propanediol 10 mg 10 mg PO DAILY Diabetes ##0 01/15/20
tablet (Farxiga)
glipizide 10 mg tablet, extended 10 mg PO DAILY Diabetes ##0 01/15/20
release 24 hr
lisinopril 40 mg tablet 40 mg PO DAILY Blood pressure 01/15/20
umeclidinium 62.5 mcg-vilanterol 1 puff inhalation R DAILY 01/15/20
25 mcg/actuation powdr for Lung/breathing issues
inhalation (Anoro Ellipta)
warfarin 5 mg tablet (Jantoven) 5 mg PO SUTUTHFRSA@1800 Blood clot 01/15/20
prevention/tx
metoprolol succinate 50 mg 50 mg PO HS Blood Pressure 10/22/22
tablet,extended release 24 hr
metoprolol succinate 25 mg 25 mg PO DAILY Blood Pressure 10/24/22
tablet,extended release 24 hr
albuterol sulfate 90 mcg/actuation 2 puff inhalation R Q6HPRN PRN 09/20/23
aerosol inhaler sob/wheezing
warfarin 5 mg tablet 2.5 mg PO WE@1800 Blood Clot 09/20/23
Prevention/Tx
Review of Systems
-
History Source: Patient
Constitutional: Reports Fatigue and Chills
EENT: Reports No Symptoms
Respiratory: Reports Trouble Breathing
Cardiac: Reports No Symptoms
Abdomen/GI: Reports Abdominal Pain and Nausea
: Reports No Symptoms
Skin: Reports No Symptoms
Neurological: Reports Dizzy and Weakness
Endocrine: Reports No Symptoms
Hematologic/Lymphatic: Reports No Symptoms
Vital Signs
Temp Pulse Resp BP Pulse Ox
98.2 F 66 30 118/71 97
09/21/23 07:45 09/21/23 06:30 09/21/23 06:30 09/21/23 06:30 09/21/23 05:30
Physical Exam
Exam
General: Well Developed, Well Nourished and No Apparent Distress
HEENT: Normocephalic and Anicteric
Respiratory: Clear
Cardiac: Regular Rhythm
GI: Soft, Non Distended and Tender (minimal epigastric pain)
Musculoskeletal: No Clubbing and No Cyanosis
Skin: Warm and Dry
Neuro: Awake, Alert and AO x 3
Psych: Calm
Results
WBC 9.4 10^3/uL (4.8-10.8) 09/21/23 06:08
Hgb 13.0 g/dL (13.0-18.0) 09/21/23 06:08
Hct 39.2 % (39.0-52.0) 09/21/23 06:08
MCV 85.6 fL (80.0-94.0) 09/21/23 06:08
Plt Count 181 10^3/uL (130-400) D 09/21/23 06:08
Absolute Neuts (auto) 7.7 10^3/uL (1.4-6.5) H 09/20/23 17:12
PT 24.6 Sec (11.4-14.6) H 09/21/23 06:07
INR 2.24 09/21/23 06:07
APTT 44.5 Sec (23.4-35.0) H 09/21/23 06:07
Sodium 139 mmol/L (135-145) 09/21/23 06:07
Potassium 4.9 mmol/L (3.5-5.1) 09/21/23 06:07
Chloride 108 mmol/L (98-107) H 09/21/23 06:07
Carbon Dioxide 23 mmol/L (22-30) 09/21/23 06:07
BUN 26 mg/dl (9-20) H 09/21/23 06:07
Creatinine 1.2 mg/dL (0.7-1.3) 09/21/23 06:07
Calcium 8.4 mg/dl (8.4-10.2) 09/21/23 06:07
Total Bilirubin 3.6 mg/dl (0.2-1.3) H D 09/21/23 06:07
AST 1139 U/L (17-59) H* 09/21/23 06:07
ALT 761 U/L (0-50) H* 09/21/23 06:07
Alkaline Phosphatase 270 U/L (38-126) H 09/21/23 06:07
Lipase 153 U/L (23-300) 09/20/23 17:12
Diagnostic Image Results:
09/21/23 US Abdomen Complete/Upper
1. SEVERE DIFFUSE LIVER DISEASE.
2. Distended gallbladder and mild diffuse gallbladder wall thickening.
3. No sonographic evidence for biliary obstruction.
09/20/23 CT A/p
IMPRESSION: Appearance of a small abscess associated with the left groin wound. See above. Slightly decreased. Previous drain removed
Appearance of stable mild diffuse gallbladder wall thickening with possible edematous change of the wall versus pericholecystic fluid. Pericholecystic fluid was not seen on the recent abdominal ultrasound. This may be due to patient motion artifact.
Acute cholecystitis cannot be excluded. Clinical and laboratory correlation recommended.
Mild hepatomegaly. Stable
Mild fecal material throughout the colon. Stable
Mild prostate hypertrophy. Stable
Prior GI Procedures:
EGD: none
Colonoscopy: 2020 with diverticulosis and hemorrhoids
Assessment / Plan
-
Pt is a 68yo presents with hx ASCVD, Afib on coumadin DM type II, COPD chronic groin abscess(follows at [facility]) over last year with with noted squamous cell CA on biopsy and also squamous cell CA of face. He now presents with onset
of chill and epigastric pain with concern for sepsis. On admission noted with bili 1.7, AST 729, ALT 328 and alk phos 279 with further rise after admission. Imaging with US with noted severe diffuse liver disease, distended GB with thickening
and CT with groin abscess, mild GBWT with edema wall vs fluid, acute cholecystitis note excluded. Pt admits to 2 dose of Tylenol with prior biopsy but no chronic use. No ETOH use. + recent Augmentin use finished 3-4 weeks ago. Denies any other
new medications.
-concern for sepsis on admission with elevated lactate, shaking chills
-increased LFT's
-distended GB with thickening on CT with diffuse liver disease
-squamous cell CA of groin and face with current chemo
other medical problems:
-afib on coumadin
-ASCVD
-DM
-COPD
PLAN:
etiology of sepsis and elevated LFT's related to biliary etiology with GBWT thickening, recent Augmentin use completed 3-4 weeks ago, ? chemo though pt unsure of current treatment course vs other
pt denies excessive Tylenol or any ETOH use
t/c MRI but pt current states he is signing out AMA awaiting review with medical teat
trend LFT's
avoid hepatotoxic medications
ok to advance diet as tolerated
cont abx with concern for sepsis
Coumadin on hold
reviewed with Dr. Garvin
-
-
Thank you for consultation and allowing me to participate in the patient's care. Please call the construction project engineer GI physician during the after hours with any questions or concerns.
--- NOTE | 2023-09-21 08:38 | PHA.VAN.IN ---
Assessment
- Assessment
Renal Function: Appears elevated from baseline (slightly increased at 1.2 vs ~0.9)
Maximum Temperature: 101.9 F - 09/19 23:15 - oral
Concomitant Antimicrobials: piperacillin/tazobactam
- Previous Dosing Experience
Previous Regimen: Vanc 1500mg Q12H
Date of Regimen: Apr 2023
Provided Trough of: 20.9
Provided AUC of: 686
Patient's SCR is: Elevated compared to previous dosing experience (SCR 1.2 vs ~0.9)
Patient's weight is: Similar to previous dosing experience
Regimen provided the following patient-specific PK:
Extrapolated Cmax (mcg/mL): 36.7 [Peak level was drawn: Appropriately (drawn ~2.2H after end of previous infusion)]
Extrapolated Cmin (mcg/mL): 21.7 [Trough Drawn: Appropriately]
Levels were drawn: At steady state (levels drawn after 4th maintenance dose)
Calculated AUC (mcg*h/mL): 686
Calculated ke: 0.05
Calculated half life (H): 13.8
Calculated Vd (L): 87 (~0.68 L/kg)
Calculated Vanc CL (ml/min): 73
Plan
- Plan
Initial / Loading Dose: 2000mg - 09/20 03:25
Maintenance Regimen: dosing by level - give 1000mg at 1800
Monitoring: random 09/21 0600
SCR & BUN appear to be trending down
May be slow to reach steady state due to prior half-life slightly > than 12H and TBW
Give additional 1000mg x1 tonight
Pharmacokinetics Vancomycin I
- -
Patient Age: 68
Patient Sex: Male
Vancomycin Day #: 1
Indication: Gi / Intra-Abdominal
Requesting Provider: Dr. Gonzales
Pertinent Antimicrobial Allergies:
NKDA
Height / Weight:
Height 6 ft
Actual Weight 129.1 kg
Pertinent Past Medical History: BMI ~39
- Vital Signs / Lab Results
Temp Pulse Resp BP Pulse Ox
98.2 F 66 30 118/71 97
09/21/23 07:45 09/21/23 06:30 09/21/23 06:30 09/21/23 06:30 09/21/23 05:30
Lab Results - Hematology
09/20/23 09/21/23
17:12 06:08
WBC 8.7 9.4
Lab Results - Chemistry
09/20/23 09/21/23
17:12 06:07
BUN 29 H 26 H
Creatinine 1.1 1.2
Estimated Creat Clear 86 81
Albumin 4.7 3.5
09/20/23 09/20/23
17:12 20:46
Lactic Acid 5.1 H* 2.7 H
--- NOTE | 2023-09-21 09:01 | CON.INTV ---
Addendum entered and electronically signed by Jesus Fairbanks MD 09/22/23 09:14:
Patient downgraded later in the evening on 09/21/2023. As stated in the consult note, shirt sorter/pulmonary service will now sign off. Thank you for allowing us to be involved in the care of this patient. Please reconsult if there are any
additional questions/concerns, or if patient's respiratory status deteriorates.
Original Note:
Consultation
Consultation Request
Date/Time Consultation Requested: 09/21/2023136
Date/Time Consultation Performed: 09/21/2023854
Requesting Provider: Dr. Gonzales
Performing Provider: Dr. Fairbanks
Reason for Consultation: Hypotensive on vasopressors
Medical History
-
Chief Complaint: Nausea + chills
History of Present Illness:
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
and A-fib on Coumadin who presents with chills and nausea and shortness of breath. In the ER patient was hypotensive to 96/64, tachypnea to 24 breaths/min and saturating 98% on room air. He was afebrile to 97.9 �F and heart rate was 72 bpm. Labs
showed an INR of 2.84, creatinine 1.1, lactate of 5.1, elevated LFTs with AST 729, ALT 328, and T. bili 1.7, negative troponin at 0.015, and elevated proBNP of 1870. CXR showed no acute cardiopulmonary disease. Abdominal ultrasound showed severe
diffuse liver disease with a distended gallbladder and mild GB wall thickening without any sonographic evidence for biliary obstruction. CT A/P showed a small abscess in the left groin which is slightly decreased compared to prior PET/CT from
07/22/2023. Of note the gallbladder was moderately distended on the PET/CT from 07/22/2023. He was given fluids in the ER with NS 0.9%x 3.5L, as well as Zosyn. Unfortunately his blood pressure remained low and he required Levophed and was admitted to
the ICU for further care. Critical care services now consulted for additional management/recommendations.
The patient was seen and evaluated this morning. He has been off of Levophed since 5 AM. Current VS shows: BP 140/79, HR 59. on room air Saturating 92%. MRCP pending. He denies abdominal pain, chest pain, shortness of breath, fevers or chills.
Of note, patient follows with us in the office with last visit on 09/11/2023 with SHIRLEY Suresh. Patient has known COPD and is on Anoro. He is compliant with his inhaler therapy. There has been no recent exacerbations. He does have a
history of being on the ventilator in 2016. He has a known RUL GGO measuring 1.5 cm stable from November 2022 with no FDG uptake. He also has a 7 mm granuloma in the anterior right upper lobe. He is on chronic amiodarone for a history of A-fib.
His last PFT from 09/11/2023 shows moderate COPD, with normal lung volumes and a mild�moderately reduced gas exchange capacity (DLco: 56%), which was only mildly reduced when accounting for alveolar volume involved in gas exchange (DLco/VA: 70%).
PMHx: Obesity, left inguinal region cancer (SCC) s/p chemo/XRT finishd in Mar 2023; basal carcinoma now on immunotherapy with Libtayo, osteoarthritis, hypertension, history of GI bleed, A-fib, COPD, DM type II, CAD w/ Hx of STEMI s/p stent to LAD (+
residual disease in the LCx), chronic HFpEF, hypertension
PSHx: Coronary stents, left knee MCL repair, bilateral inguinal hernia repair, I&D of left groin fluid collection with debridement and wound VAC (October 2022),
Past Medical History
Past Medical History: Other (Above as per HPI)
Past Surgical History: Other (Above as per HPI)
Social History
Tobacco: Former Smoker (Quit October 2016 with [id number](+) history)
Alcohol: Occasional
Drug: None
Personal:
Living: With Family
Family History
Family History: CAD, Diabetes and Hypertension
Allergies / Home Medications
Allergies
Allergy/AdvReac Type Severity Reaction Status Date / Time
No Known Allergies Allergy Verified 09/20/23 16:41
Home Medications
�Medication �Instructions �Recorded �Confirmed �Last Taken �Type
metformin 1,000 mg tablet 1,000 mg PO BIDWMEAL Diabetes 04/15/16 09/20/23 09/19/23 History
atorvastatin 80 mg tablet 80 mg PO QPM #30 tabs 11/13/16 09/20/23 09/19/23 Rx
amiodarone 200 mg tablet (Pacerone) 200 mg PO DAILY Arrhythmia 01/15/20 09/20/23 09/19/23 History
dapagliflozin propanediol 10 mg 10 mg PO DAILY Diabetes ##0 01/15/20 09/20/23 09/19/23 History
tablet (Farxiga)
glipizide 10 mg tablet, extended 10 mg PO DAILY Diabetes ##0 01/15/20 09/20/23 09/19/23 History
release 24 hr
lisinopril 40 mg tablet 40 mg PO DAILY Blood pressure 01/15/20 09/20/23 09/19/23 History
umeclidinium 62.5 mcg-vilanterol 1 puff inhalation R DAILY 01/15/20 09/20/23 09/19/23 History
25 mcg/actuation powdr for Lung/breathing issues
inhalation (Anoro Ellipta)
warfarin 5 mg tablet (Jantoven) 5 mg PO SUTUTHFRSA@1800 Blood clot 01/15/20 09/20/23 09/19/23 History
prevention/tx
metoprolol succinate 50 mg 50 mg PO HS Blood Pressure 10/22/22 09/20/23 09/19/23 History
tablet,extended release 24 hr
metoprolol succinate 25 mg 25 mg PO DAILY Blood Pressure 10/24/22 09/20/23 09/19/23 History
tablet,extended release 24 hr
albuterol sulfate 90 mcg/actuation 2 puff inhalation R Q6HPRN PRN 09/20/23 09/20/23 Unknown History
aerosol inhaler sob/wheezing
warfarin 5 mg tablet 2.5 mg PO WE@1800 Blood Clot 09/20/23 09/20/23 09/16/23 History
Prevention/Tx
Review of Systems
-
History Source: Patient
All other systems: Negative unless noted
Vitals / Labs / Diagnostic Testing
Vital Signs
Temp Pulse Resp BP Pulse Ox
98.2 F 66 30 118/71 97
09/21/23 07:45 09/21/23 06:30 09/21/23 06:30 09/21/23 06:30 09/21/23 05:30
Lab Data
09/21/23 06:08
09/21/23 06:07
Laboratory Results
09/20/23 09/21/23
17:12 06:07
PT 29.8 H 24.6 H
INR 2.84 2.24
APTT 44.5 H
Diagnostic Testing:
Physical Exam
-
HEENT: Normocephalic and Anicteric
Cardiovascular: S1/S2 and Peripheral Edema (Negative)
Respiratory: Clear, Wheeze (Negative), Rales (Negative) and Accessory Resp Muscle Use (Negative)
GI: Soft and Distended (Abdominal obesity)
Neurology: AO x 3 and Tremors (Negative)
Skin: Warm and Dry
General: Respiratory Distress (Negative), Comfortable and Chills (Negative)
Assessment
-
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
hypertension and A-fib on Coumadin who presents with chills and nausea and shortness of breath. In the ER patient was hypotensive to 96/64, tachypnea to 24 breaths/min and saturating 98% on room air. He was afebrile to 97.9 �F and heart rate was
72 bpm. Labs showed an INR of 2.84, creatinine 1.1, lactate of 5.1, elevated LFTs with AST 729, ALT 328, and T. bili 1.7, negative troponin at 0.015, and elevated proBNP of 1870. CXR showed no acute cardiopulmonary disease. Abdominal ultrasound
showed severe diffuse liver disease with a distended gallbladder and mild GB wall thickening without any sonographic evidence for biliary obstruction. CT A/P showed a small abscess in the left groin which is slightly decreased compared to prior
PET/CT from 07/22/2023. Of note the gallbladder was moderately distended on the PET/CT from 07/22/2023. He was given fluids in the ER with NS 0.9%x 3.5L, as well as Zosyn. Unfortunately his blood pressure remained low and he required Levophed and was
admitted to the ICU for further care. Critical care services now consulted for additional management/recommendations.
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
s/p stent to LAD (+ residual disease in the LCx), chronic HFpEF, hypertension
Impression:
#Shock requiring vasopressors - shock state now resolved
#Transaminitis with hyperbilirubinemia - likely due to shock liver but DDx also includes DILI from Augmentin (taken few weeks ago) vs biliary tree pathology (i.e., choledocholithiasis)
#Lactic acidosis - due to shock as above
#Hypomagnesemia
#Hx of SCC of groin s/p chemo/XRT in 2022 and BCC of face on immunotherapy with libtayo
#Chronic anticoagulation
#Atrial fibrillation on Coumadin
#COPD on Anoro
#Former tobacco use history (>[id number] history and quit in October 2016)
#DM type II (A1c: 6.7)
#CAD with Hx of STEMI and stent to LAD
#Chronic HFpEF
Plan:
- He has been off all vasopressors since this AM and he is mentating well
- Keep MAP>65
- Slowly resume PO anti-hypertensives
- MRCP pending - follow up results
- Continue ABx (Zosyn + IV vanco - both started 09/19) and follow up blood Cx and wound Cx
- Would favor giving him a total of 10-14 days of antibiotics
- Wound care consulted -of note he follows with [facility] wound [facility] with possible plan for hyperbaric oxygen treatment in the near future
- Surgery consulted given his history of left groin I&D and now with possible sepsis from groin site - no plans for surgical debridement at this time as per surgery
- Eventually he needs to continue following up with his wound care facility at [place]
- Pain control
- GI on board - recs appreciated
- Trend lactate until <2mmol/L
- Trend LFTs; follow up hepatitis panel
- Hold amio for now given elevated LFTs
- Maintain SpO2 >88-94%
- Resume inhalers with striverdi and Spiriva given he takes Anoro at home
- Replete electrolytes with K>4, Mg>2
- Maintain euglycemia with goal BG 140-180
- prn nebulized bronchodilators
- Incentive spirometer encouraged
- DVT ppx: on coumadin --> if MRCP shows no need for surgery then will resume couamdin tonight - goal INR 2-3; of note he was given IV vitamin K overnight from 09/19likely due to him possibly needing a line at that time given his
vasopressor needs
He ultimately will need to follow-up with us again in the office. If MRCP today does not show any concerning findings and he remains normotensive with downtrending lactate, then we will downgrade out of ICU to telemetry. Once downgraded we will
sign off.
Total time spent today was 75 minutes for this encounter. Time includes reviewing laboratory test/imaging results, reviewing pertinent medical records, obtaining and reviewing medical history, performing an appropriate exam, ordering medications,
tests and procedures. Time also includes documentation of this encounter, coordinating patient care and communicating with other healthcare professionals. Total time does not include separately billed tests performed on this date of service.
Data:
CT Abd/Pelvis with IV contrast 09-20-2023:
Appearance of a small abscess associated with the left groin wound. See above. Slightly decreased. Previous drain removed
Appearance of stable mild diffuse gallbladder wall thickening with possible edematous change of the wall versus pericholecystic fluid. Pericholecystic fluid was not seen on the recent abdominal ultrasound. This may be due to patient motion artifact.
Acute cholecystitis cannot be excluded. Clinical and laboratory correlation recommended.
Mild hepatomegaly. Stable
Mild fecal material throughout the colon. Stable
Mild prostate hypertrophy. Stable
Abd US 09-20-2023:
1. SEVERE DIFFUSE LIVER DISEASE.
2. Distended gallbladder and mild diffuse gallbladder wall thickening.
3. No sonographic evidence for biliary obstruction.
--- NOTE | 2023-09-21 10:12 | CON.GS ---
Addendum entered and electronically signed by Jesus Sam MD 09/21/23 12:39:
Patient seen and examined. Agree with assessment plan as documented below.
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
in 10/2022 (diagnosed squamous cell cancer) s/p XRT and chemo completed in 03/2023 complicated by recurrent wound issues and abscess formation s/p incision and drainage by Dr. West in 04/2023. Mr. Verma states that over the past 24 hours he has
had vague, generalized abdominal discomfort described as indigestion as well as fevers and chills. Currently he states that his symptoms have resolved. He denies ever having prior similar symptoms. Denies any jaundice, pale stools, or tea colored
urine. Of note, his last dose of chemotherapy was approximately 2 weeks ago. He currently follows with [place] wound care, and reports a biopsy of the area with results pending. Tentative plan for hyperbaric oxygen treatment.
Gen: NAD
Abd: soft, NT/ND, obese, negative Tanner's sign, LEFT groin with a 1-2 cm opening, packing in place, no purulence noted, mild excoriation of the skin
Labs and imaging were reviewed.
Patient is a 68 yo M p/w abdominal discomfort in the setting of elevated bilirubin and LFTs
Uncertain exactly what is causing Mr. Ron's symptoms. Differential remains broad and includes viral or drug-induced hepatotoxicity less likely malignancy, and certainly hepatobiliary disease such as choledocholithiasis. No clear evidence of
cholecystitis either on exam or imaging. No evidence of stone disease identified on ultrasound. GI consult noted. Recommend further workup with an MRI. Okay for dietary advancement from a surgical standpoint. Continue to hold Coumadin in case
any procedures may be needed. All questions answered.
--GI following with us, plans for MRCP today
--Ok for clears from surgical standpoint
--Continue local wound care to left groin, no plans for further surgical debridement at this time
--Trend LFT's, CBC and INR's
--Wound care following
Original Note:
Consultation
-
Date/Time Consultation Requested: 09/21/23 0137
Requesting Provider: Christian
Reason for Consultation: Cholecystitis / L Groin Abscess
Medical History
-
Chief Complaint: nausea
History of Present Illness:
This is a 68 yo male with a h/o afib on warfarin, DM, squamous cell ca at the site of a recurrent left groin fluid collection s/p surgical drainage in October of 2022 (with dx of scc) with follow up XRT and chemo completed in March with recurrent
abscess at the site with last surgical I&D in April of 2023 now following at the wound center in [place] as an outpatient given the chronicity of the wound who is presenting this admission with nausea, chills/shaking and sob. He notes these
symptoms have resolved since presentation. He was found to be hypotensive in the ED and initiated on pressors which have since been able to be discontinued. He was febrile overnight to 101.9. He denies abdominal pain and is nontender on exam without
distention. He notes no changes to his left groin wound of late. Packing in place without any purulent drainage present. There is local dermatitis to the skin surrounding the wound, but no significant erythema.
Past Medical History
Past Medical History: Arrhythmias (afib), CAD (stemi with stents), Cancer (basal cell to face, squamous cell to groin), CHF, COPD, HTN, Hypercholesterolemia and NIDDM
Past Surgical History: Cardiac (stents 2016), Hernia Repair (BL inguinal hernia repair at age 3), Orthopedic (left knee mcl repair) and Other (I&D of left groin wound 11/09 & 04/2023)
Social History
Tobacco: Former Smoker
Alcohol: None
Personal:
Living: With Family
Family History
Family History: Early CAD (father: at 53 yo)
Allergies / Home Medications
Allergy/AdvReac Type Severity Reaction Status Date / Time
No Known Allergies Allergy Verified 09/20/23 16:41
�Medication �Instructions �Recorded �Confirmed �Type
metformin 1,000 mg tablet 1,000 mg PO BIDWMEAL Diabetes 04/15/16 09/20/23 History
atorvastatin 80 mg tablet 80 mg PO QPM #30 tabs 11/13/16 09/20/23 Rx
amiodarone 200 mg tablet (Pacerone) 200 mg PO DAILY Arrhythmia 01/15/20 09/20/23 History
dapagliflozin propanediol 10 mg 10 mg PO DAILY Diabetes ##0 01/15/20 09/20/23 History
tablet (Farxiga)
glipizide 10 mg tablet, extended 10 mg PO DAILY Diabetes ##0 01/15/20 09/20/23 History
release 24 hr
lisinopril 40 mg tablet 40 mg PO DAILY Blood pressure 01/15/20 09/20/23 History
umeclidinium 62.5 mcg-vilanterol 1 puff inhalation R DAILY 01/15/20 09/20/23 History
25 mcg/actuation powdr for Lung/breathing issues
inhalation (Anoro Ellipta)
warfarin 5 mg tablet (Jantoven) 5 mg PO SUTUTHFRSA@1800 Blood clot 01/15/20 09/20/23 History
prevention/tx
metoprolol succinate 50 mg 50 mg PO HS Blood Pressure 10/22/22 09/20/23 History
tablet,extended release 24 hr
metoprolol succinate 25 mg 25 mg PO DAILY Blood Pressure 10/24/22 09/20/23 History
tablet,extended release 24 hr
albuterol sulfate 90 mcg/actuation 2 puff inhalation R Q6HPRN PRN 09/20/23 09/20/23 History
aerosol inhaler sob/wheezing
warfarin 5 mg tablet 2.5 mg PO WE@1800 Blood Clot 09/20/23 09/20/23 History
Prevention/Tx
Review of Systems
-
History Source: Patient
All other systems: Negative unless noted
A 10 point review of systems was completed, and was negative except as per HPI.
Physical Exam
Vital Signs
Temp Pulse Resp BP Pulse Ox
98.2 F 66 30 118/71 97
09/21/23 07:45 09/21/23 06:30 09/21/23 06:30 09/21/23 06:30 09/21/23 05:30
09/20/23 09/21/23 09/22/23
06:59 06:59 06:59
Actual Weight 129.1 kg
Body Mass Index (BMI) 38.6
Lab Results
09/21/23 06:08
09/21/23 06:07
WBC 9.4 10^3/uL (4.8-10.8) 09/21/23 06:08
Hgb 13.0 g/dL (13.0-18.0) 09/21/23 06:08
Hct 39.2 % (39.0-52.0) 09/21/23 06:08
Plt Count 181 10^3/uL (130-400) D 09/21/23 06:08
Abs Immat Gran (auto) 0.1 10^3/uL (0-0.05) H 09/20/23 17:12
Neutrophils % 88.6 % (42.2-75.2) H 09/20/23 17:12
Physical Exam
General: Well Developed and Well Nourished
HEENT: Moist Mucous Membranes
Respiratory: Non Labored Respirations
GI: Soft, Non Tender and Non Distended
Skin: Warm, Dry and Other (left groin with chronic wound, no purulent drainage present)
Neuro: Awake, Alert and AO x 3
Psych: Calm
Data Reviewed
-
CT Scan: Image Personally Visualized and interpreted, Report Reviewed by me, Discussed with Physician, Discussed with Patient and Discussed with Family
Ultrasound: Image Personally Visualized and interpreted, Report Reviewed by me, Discussed with Physician, Discussed with Patient and Discussed with Family
Labs: Labs Reviewed by me, Discussed with Physician, Discussed with Patient and Discussed with Family
Old Records: Reviewed
Assessment / Plan
-
68 yo male with a h/o afib on warfarin (INR 2.24), DM, squamous cell ca at the site of a recurrent left groin fluid collection s/p surgical drainage in October of 2022 (with dx of scc) with follow up XRT and chemo completed in March with recurrent
abscess at site. Last surgical I&D was in April of 2023 now following at the wound center in [place] as an outpatient given the chronicity of the wound who is presenting this admission with nausea, chills/shaking and sob and admitted to the ICU
for septic shock as he was initially on pressors which have been able to be weaned off. Febrile overnight to 101.9. No leukocytosis present. LFT's elevated. No further nausea and without abdominal pain/tenderness. Left groin wound without purulence,
wound bed draining to skin.
CT with wound to left groin appears to be draining well. Stable mild diffuse gallbladder wall thickening with possible edematous change of the wall vs motion artifact. US imaging without cholelithiasis.
Plan:
--GI following with us, plans for MRCP today
--Ok for clears from surgical standpoint
--Continue local wound care to left groin, no plans for further surgical debridement at this time
--Trend LFT's, CBC and INR's
--Wound care following
[2023-09-21] MEDS: STRIVERDI RESPIMAT 2 PUFF INH (10:13)
[2023-09-21] MEDS: SPIRIVA RESPIMAT 2.5 MCG 2 PUFF INH (10:14)
--- NOTE | 2023-09-21 10:38 | CM ---
CM following re: discharge planning.
Discussed in Rounds, reviewed pt's chart, met with pt and pt's spouse Latoya at bedside.
Pt is a 68 year old male, admitted with primary dx of Abdominal pain/Sepsis.
Pt reports he lives with spouse in a 2SH, 2 steps to enter, has 3 supportive children. Pt described himself as independent in all areas [employer], known to VN, no DME or SNF history.
PCP: Jil Trotter
Pharmacy: [facility] [place]
d/C plan: home with most likely [facility] and family support.
CM will follow with discharge plan updates as hospitalization progresses
[2023-09-21] MEDS: MAGNESIUM OXIDE 500 MG PO ×2 (11:10→14:44)
[2023-09-21 11:58] LABS: Glucose - Point of Care 113 mg/dl (70-99)
[2023-09-21 12:10] LABS: Glycohemoglobin (HgbA1c) 6.7 % (4.0-5.6)
--- NOTE | 2023-09-21 12:20 | WOUNDNOTE ---
ABDOMINAL SKIN FOLDS
--- NOTE | 2023-09-21 12:22 | WOUNDNOTE ---
LUIS E RN note: Patient admitted with L groin abscess, hyperkalemia and elevated liver function tests.
See H&P for complete history. Lives with and current with VN.
PMH: NIDDM,CAD,VT-CC with Stents,A fib, seroma to L abdomen. L chin basal cell skin cancer removed 20 yrs ago. Malignant carcinoma L groin- surgery and radiation 10/2022, followed by [facility] wound center weekly.
Wound Location and type/assessment: Patient admitted with: L groin chronic non healing surgical wound. Compared to last seen 04/2023, L groin appears less red and no longer with [place] drain. Has mild fungal rash on abdomen and patient states he
has psoriasis also, patches visible on back. Reviewed L groin wound care with Dr. Sam on rounds, approved local wound care. Reviewed current wound care with patient done at [facility] wound center. Patient states a biopsy of site was done at [facility] to
determine if HBO therapy is an option, results pending. Wound culture done here is pending. Does not appear to be infected, base clean no odor and moderate serosanguineous drainage. Buttocks with scattered red pimple like sores, suspect from MASD.
Ultrasorb pad saturated with urine, PCT Jamal assisted with care. Sacrum and heels intact. Patient states he is ad josh at home.
Appetite: Good at home, currently NPO.
Pressure redistribution devices in place: Air mattress, is on bedrest. Instructed patient the importance of frequent turning to prevent pressure injury. Pillow placed under calves to offload heels.
Plan: Dressing changed saline WTD. Called SPD for Vashe to be used for Gabriela packing then dry ABD pad, starting tomorrow. Will order fungal cream for abdomen, refused use of fungal powder.
Will confirm orders with hospitalist and updated nurse Rowena. Updated care plan and will follow as needed.
Note to case management of equipment requested for discharge: VN to continue.
Recommend follow up with [facility] as scheduled.
--- NOTE | 2023-09-21 12:28 | PTCARENOTE ---
Assumed care pt from EDMUNDO Chery at 1030. VSS. Pt reported to be difficult and demanding, desiring to leave AMA. At bedside, pt receptive to instruction. Discussed plan of care. Assessment as noted. O2 removed with SpO2 96% on RA. Afib on monitor.
Dressing to L groin CDI-awaiting Wound RN. IVF infusing as ordered. NPO.
--- NOTE | 2023-09-21 15:04 | PTCARENOTE ---
Pt remains NPO. Awaiting MRI. Wound RN rounded-see note. Assessment unchanged
--- NOTE | 2023-09-21 16:38 | PTCARENOTE ---
Pt assisted OOB to chair with standby assistance. Tolerated well. continues to vacillate between afib and sinus rhythm.
--- NOTE | 2023-09-21 17:14 | W.PN.HOSP.TC ---
Today's Communication/Plan
-
see outlined plan
Assessment / Plan
Assessment / Plan
Assessment:
Shock, possibly septic
- resolved, off pressors
- continue IVF
- trend lactates
- continue Vanco/Zosyn for now; follow cultures
Transaminitis with hyperbilirubinemia
- acute
- DILI Vs shock vs anatomic abnormality
- hold Amio
- noted recent Augmentin use
- trend LFTs
- GI Consulted
- hepatitis panel pending
- MRI/MRCP: pending
- continue Vanco/Zosyn for now; follow cultures
Hx of SCC of groin s/p chemo/XRT in 2022 and BCC of face on immunotherapy with libtayo
- GS following
- follows with [facility] wound care
Hypomagnesemia
Hx of PAF on Coumadin
- hold Coumadin; follow INRs
- continue BB in AM if BP stable
- Amio on hold with elevated LFTs
COPD on Anoro
Former tobacco use history (>460-uxrd-xhxb history and quit in October 2016)
DM type II (A1c: 6.7)
- hold Glipizide/MFM
- SSI
CAD with Hx of STEMI and stent to LAD
Chronic HFpEF
- continue TAYLER/BB in AM if BP stable
DVT ppx: therapeutic INR
Code: Full
Total Critical Care Time 42 minutes. I was immediately available to the patient and staff. I personally examined, reviewed labs, diagnostic images/reports, interpretations, treatment plans, discussed patient care with other providers and family
or caregivers (if patient is unable to make decisions), entered orders as appropriate and documented the medical record.
Anticipated Discharge: > 48 hours
Subjective/Interval History
-
Date of Service: September 21, 2023
seen earlier this AM
complained of RUQ pain, and with sepsis concerns, he changed his mind about AMA
Objective Data
-
Labs:
Laboratory Results
09/21/23 09/21/23
06:07 06:08
WBC 9.4
Hgb 13.0
Hct 39.2
Plt Count 181 D
PT 24.6 H
INR 2.24
APTT 44.5 H
Sodium 139
Potassium 4.9
Chloride 108 H
Carbon Dioxide 23
BUN 26 H
Creatinine 1.2
Glucose 105 H
Calcium 8.4
Total Bilirubin 3.6 H D
AST 1139 H*
ALT 761 H*
Alkaline Phosphatase 270 H
Vital Signs:
Vital Signs
Temp Pulse Resp BP Pulse Ox
99 F 62 13 119/65 95
09/21/23 15:12 09/21/23 16:30 09/21/23 16:30 09/21/23 16:16 09/21/23 15:45
I&O
09/20/23 09/21/23 09/22/23
06:59 06:59 06:59
Intake Total 690.75 / 790.75 1500 / 1500
Output Total 1150 / 1450 1475 / 1475
Balance -459.25 / -659.25 25 / 25
Physical Exam
-
General: Obese
HEENT: Normocephalic and Atraumatic
Respiratory: Negative Wheezes
Cardiac: Regular Rhythm and S1/S2
GI: Other (RUQ tenderness)
Genito-urinary: No Costovertebral Tender
Neuro: AO x 3
Hematologic / Lymphatic: No Lymphadenopathy
Psych: Calm
Data Reviewed
-
Critical Care Time (in minutes): 42
Labs: Labs Reviewed by me
[2023-09-21] MEDS: VANCOCIN 200 IV (18:04)
[2023-09-21 18:18] LABS: Glucose - Point of Care 112 mg/dl (70-99)
[2023-09-21] MEDS: ANTIFUNGAL CLEAR 1 APPLIC TOPICAL (20:15)
[2023-09-21 20:26] LABS: Hepatitis C Antibody Negative (Negative)
[2023-09-21 23:56] LABS: Glucose - Point of Care 113 mg/dl (70-99)
[2023-09-22] VITALS (12 sets, daily range): BP systolic 99–182; BP diastolic 40–80; BMI 38.8
[2023-09-22] MEDS: ZOSYN 100 IV ×4 (03:00→19:52)
[2023-09-22] MEDS: NSS 1000 IV (03:36)
[2023-09-22 04:14] LABS: % Basophils 0.3 % (0-2); % Immature Granulocytes 0.7 % (0-0.5); % Lymphocytes 5.7 % (20.5-51.1); % Monocytes 8.7 % (1.7-9.3); % Neutrophils 83.6 % (42.2-75.2); Absolute Eosinophils 0.1 10^3/uL (0-0.7); Absolute Lymphocytes 0.4 10^3/uL (1.2-3.4); Absolute Monocytes 0.5 10^3/uL (0.1-0.6); Absolute Neutrophils 5.1 10^3/uL (1.4-6.5); Hematocrit 32.7 % (39.0-52.0); Hemoglobin 11.2 g/dL (13.0-18.0); Mean Corp Hgb Conc. 34.3 g/dL (33.0-37.0); Mean Corpuscular Hgb 28.1 pg (27.0-31.0); Mean Corpuscular Volume 82.2 fL (80.0-94.0); Mean Platelet Volume 8.9 fL (7.4-10.4); Nucleated Red Blood Cells % 0 % (-); Platelet Count 129 10^3/uL (130-400); Red Blood Cell Count 3.98 10^6/uL (4.70-6.10); Red Cell Dist. Width 16.1 % (11.5-14.5); White Blood Cell Count 6.1 10^3/uL (4.8-10.8)
[2023-09-22 04:28] LABS: Vancomycin Random 12.2 ug/ml
[2023-09-22 04:39] LABS: ALT (SGPT) 444 U/L (0-50); AST (SGOT) 401 U/L (17-59); Alkaline Phosphatase 224 U/L (38-126); Blood Urea Nitrogen 19 mg/dl (9-20); Calcium 8.7 mg/dl (8.4-10.2); Carbon Dioxide 20 mmol/L (22-30); Chloride 107 mmol/L (98-107); Direct Bilirubin 4.1 mg/dl (0.0-0.4); Estimated Creatinine Clearance 88 ml/min; Glucose 106 mg/dl (70-99); Potassium 4.4 mmol/L (3.5-5.1); Sodium 135 mmol/L (135-145); Total Bilirubin 4.9 mg/dl (0.2-1.3); Total Protein 5.6 g/dl (6.3-8.2); eGFR > 60.00
--- NOTE | 2023-09-22 04:39 | PTCARENOTE ---
09/21/231999 - received pt from daysmtft RN, assessment completed, pt OOB to chair, at bedside.
no c/o pain or discomfort. patient is ast x to Bathroom, instructed patient to call when he was finished,
patient was sitting on edge of bed when i returned, instructed patient not to move around room with out us for assistance to prevent risk of fall.
offered to set up patient with toothbrush and toothpaste, patient refused, states 'i dont ever brush my teeth' 'whats the point' i offered mouthwash to at least rinse, patient refused and said 'you can leave it but i wont use it'
i offered a warm bath and shampoo for his hair, patient refused that as well, i explained that the beds can cause us to sweat and be malodorous, patient stated 'i dont care, i dont want to be cleaned up'
09/21 29 - another RN and myself went to assist patient to bathroom, patient became very agitated when i offered the walker, pushing it aside and getting angry, nor did he want any assistance on the way back to bed, patient became verbally agressive
and he was told by both myself and another RN to not speak to us in that manor that we were only there to help and prevent him from falling.
09/22 399- labs drawn and sent, no new orders at this time, call daniels and personal belongings within reach at all times.
[2023-09-22 04:46] LABS: INR 1.36; PT 16.6 Sec (11.4-14.6)
[2023-09-22 05:12] LABS: Hepatitis A IgM Antibody Negative (Negative); Hepatitis B Core Ab, IgM Negative (Negative)
[2023-09-22 05:27] LABS: Hepatitis B Core Ab, Total Negative (Negative); Hepatitis B Surface Antibody Negative
[2023-09-22 05:58] LABS: Hepatitis A Antibody, Total Negative (Negative)
[2023-09-22] MEDS: STRIVERDI RESPIMAT 2 PUFF INH (07:11)
[2023-09-22] MEDS: SPIRIVA RESPIMAT 2.5 MCG 2 PUFF INH (07:11)
[2023-09-22] MEDS: NSS (PRESERVATIVE FREE) 10 ML IV (07:33)
[2023-09-22] MEDS: PROTONIX IV 40 MG IV (07:33)
[2023-09-22] MEDS: ANTIFUNGAL CLEAR 1 APPLIC TOPICAL ×2 (07:33→19:52)
--- NOTE | 2023-09-22 08:51 | PHA.VAN.FU ---
Vancomycin Assessment / Plan
- Assessment
Renal Function: Stable
WBC's are: WNL
In the past 24 hrs, patient has been: Afebrile
Concomitant Antimicrobials: piperacillin/tazobactam
- Assessment - Therapeutic Drug Monitoring
Random Level: 12.2 - drawn ~9.5H after previous dose of 1000mg
- Dosing Plan
Dosing by Level: Re-dose today (Vanc 1250mg now PLUS 1250mg at 1800)
May be slow to reach steady state due to prior half-life slightly > than 12H and TBW
Since prior half-life > 12H - patient may require Q24H interval (estimated clearance may be overestimated due to weight)
Will keep dose by level for now to follow trend with BID dosing today
- Monitoring Plan
Random Level: 09/22 0600
- Follow Up
Pharmacy will continue to follow.
Vancomycin Follow UP
- -
Patient Age: 68
Patient Sex: Male
Vancomycin Day #: 2
Indication: Gi / Intra-Abdominal
Requesting Provider: Dr. Gonzales
Pertinent Antimicrobial Allergies:
NKDA
Height / Weight:
Height 6 ft
Actual Weight 129.8 kg
Pertinent Past Medical History: BMI ~39
- Vital Signs / Lab Results
Temp Pulse Resp BP Pulse Ox
97.6 F 64 14 99/54 90
09/22/23 07:38 09/22/23 07:14 09/22/23 07:14 09/22/23 06:00 09/21/23 22:45
Lab Results - Hematology
09/20/23 09/21/23 09/22/23
17:12 06:08 03:47
WBC 8.7 9.4 6.1
Lab Results - Chemistry
09/20/23 09/21/23 09/22/23
17:12 06:07 03:47
BUN 29 H 26 H 19
Creatinine 1.1 1.2 1.1
Estimated Creat Clear 86 81 88
Albumin 4.7 3.5 3.0 L
09/20/23 09/20/23 09/22/23
17:12 20:46 03:47
Lactic Acid 5.1 H* 2.7 H 1.0
Microbiology Results
09/20/23 19:00 Blood Culture - Preliminary
Blood/Venous No Growth in 24 hours- Final report to follow
09/20/23 18:22 Blood Culture - Preliminary
Blood/Venous No Growth in 24 hours- Final report to follow
09/20/23 17:12 Blood Culture - Preliminary
Blood/Venous No Growth in 24 hours- Final report to follow
09/20/23 19:00 Gram Stain - Preliminary
Abdomen
Therapeutic Drug Monitoring
Random Vancomycin 12.2 ug/ml 09/22/23 03:47
--- NOTE | 2023-09-22 09:10 | PTCARENOTE ---
Received pt this am. Up in chair. plan of care discussed. Currently in Sinus rhythm. VSS. Pt assisted to wheelchair for MRI. Plan discussed with .
[2023-09-22] MEDS: VANCOCIN 275 MG IV ×2 (10:15→17:03)
--- NOTE | 2023-09-22 11:17 | W.PN.GI.CBS2 ---
Addendum entered and electronically signed by Torito Louise MD 09/22/23 12:00:
I saw and examined the patient.
The [employer] or PA's note was reviewed and I agree with the note.
Comment:
Pt w/o abdominal pain, feels well
alert
abd non distended
MRI without evidence of choledocholithiasis
lfts stable but elevated
impression:
abd lfts (multifactorial)
distended gallbladder
plan:
follow lfts
advance diet
Original Note:
Today's Communication / Plan
-
Advance diet to low-fat, repeat LFTs and CBC in a.m. watch for decrease in platelets and increase in LFTs
Assessment / Plan
-
Pt is a 68yo presents with hx ASCVD, Afib on coumadin DM type II, COPD chronic groin abscess(follows at [facility]) over last year with with noted squamous cell CA on biopsy and also squamous cell CA of face. He now presents with onset
of chill and epigastric pain with concern for sepsis. On admission noted with bili 1.7, AST 729, ALT 328 and alk phos 279 with further rise after admission. Imaging with US with noted severe diffuse liver disease, distended GB with thickening
and CT with groin abscess, mild GBWT with edema wall vs fluid, acute cholecystitis note excluded. Pt admits to 2 dose of Tylenol with prior biopsy but no chronic use. No ETOH use. + recent Augmentin use finished 3-4 weeks ago. Denies any other
new medications.
-concern for sepsis on admission with elevated lactate, shaking chills
-increased LFT's
-distended GB with thickening on CT with diffuse liver disease
-squamous cell CA of groin and face with current chemo
other medical problems:
-afib on coumadin
-ASCVD
-DM
-COPD
PLAN:
etiology of sepsis and elevated LFT's related to biliary etiology with GBWT thickening, recent Augmentin use completed 3-4 weeks ago, ? chemo though pt unsure of current treatment course vs other
pt denies excessive Tylenol or any ETOH use
MRI/MRCP without any evidence of choledocholithiasis
trend LFT's, transaminases trending down. Bilirubin slight increase.
avoid hepatotoxic medications
Will advance to low-fat diet. Sent message to internal medicine
cont abx with concern for sepsis
CBC, LFTs, PT/INR in a.m.
Subjective
Subjective
Date of Service: September 22, 2023
Patient without any pain today. Tolerating clear liquid diet without any difficulty. Would like to advance to regular diet. Discussed will advance to low-fat diet see how he tolerates. Transaminases trending down. Slight decrease in platelets
and bilirubin. Acute hepatitis panel negative. Abdominal MRI with MRCP shows no evidence for choledocholithiasis. Gallbladder hydrops containing a small amount of sludge. No evidence for cholelithiasis or significant pericholecystic
inflammation. Mild periportal lymphadenopathy nonspecific and most likely reactive.
Objective
Data Reviewed
Laboratory Data:
Laboratory Results
09/22/23 03:47
09/22/23 03:47
Laboratory Results
PT 16.6 Sec (11.4-14.6) H 09/22/23 03:47
INR 1.36 09/22/23 03:47
APTT 44.5 Sec (23.4-35.0) H 09/21/23 06:07
Phosphorus 3.4 mg/dl (2.5-4.5) 09/21/23 06:07
Magnesium 1.3 mg/dl (1.6-2.3) L 09/21/23 06:07
Total Bilirubin 4.9 mg/dl (0.2-1.3) H 09/22/23 03:47
AST 401 U/L (17-59) H 09/22/23 03:47
ALT 444 U/L (0-50) H 09/22/23 03:47
Alkaline Phosphatase 224 U/L (38-126) H 09/22/23 03:47
Lipase 153 U/L (23-300) 09/20/23 17:12
Vital Signs and I&O:
Vital Signs
Temp Pulse Resp BP Pulse Ox
97.6 F 66 14 116/54 96
09/22/23 07:38 09/22/23 08:45 09/22/23 07:14 09/22/23 08:00 09/22/23 08:00
I&O
09/21/23 09/22/23 09/23/23
06:59 06:59 06:59
Intake Total 690.75 / 790.75 2500 / 2500 140 / 140
Output Total 1150 / 1450 1475 / 1475
Balance -459.25 / -659.25 1025 / 1025 140 / 140
Physical Exam
Physical Exam
Cardiology: Normal Sinus Rhythm
Pulmonary: Clear (Anterior)
GI: Soft, Non Distended, Non Tender and Normal Bowel Sounds
Neuro: Non Focal
--- NOTE | 2023-09-22 11:45 | W.PN.UPDATE ---
Update Note
Progress Note Update
MRI neg for acute findings. OK to ADAT from surg standpoint. No plan for surgery this admit. All other care as per primary team. Pls call with ?s.
--- NOTE | 2023-09-22 12:08 | PTCARENOTE ---
MRI completed. Pt instructed on new low fat diet. Pt stated he has no intentions of eating a low fat diet. Discussed lab finding and necessity of timely recovery with low fat diet. Pt unconvinced. Assessment unchanged.
--- NOTE | 2023-09-22 14:58 | W.PN.HOSP.TC ---
Today's Communication/Plan
-
advance diet, follow LFTs
resume Coumadin/BB
Assessment / Plan
Assessment / Plan
Assessment:
Shock, possibly septic
- resolved, off pressors
- BP improved, cap IVF
- trend lactates
- continue Vanco/Zosyn for now; follow cultures
Transaminitis with hyperbilirubinemia
- acute
- DILI Vs shock vs anatomic abnormality
- hold Amio
- noted recent Augmentin use
- trend LFTs
- hepatitis panel so far negative
- MRI/MRCP: negative
- GI following
- advanced diet
Hx of SCC of groin s/p chemo/XRT in 2022 and BCC of face on immunotherapy with libtayo
- GS following
- follows with [facility] wound care
Hypomagnesemia
Hx of PAF on Coumadin
- resume Coumadin; follow INRs. note he did receive Vit K in ER
- resume BB
- Amio on hold with elevated LFTs
COPD on Anoro
Former tobacco use history (>692-wtdu-tqdp history and quit in October 2016)
DM type II (A1c: 6.7)
- hold Glipizide/MFM
- SSI
CAD with Hx of STEMI and stent to LAD
Chronic HFpEF
- continue TAYLER/BB in AM if BP stable
DVT ppx: therapeutic INR
Code: Full
Anticipated Discharge: 24 - 48 hours
Subjective/Interval History
-
Date of Service: September 22, 2023
denies any new complaints
MRI was neg
Objective Data
-
Labs:
Laboratory Results
09/22/23
03:47
WBC 6.1
Hgb 11.2 L
Hct 32.7 L
Plt Count 129 L D
PT 16.6 H
INR 1.36
Sodium 135
Potassium 4.4
Chloride 107
Carbon Dioxide 20 L
BUN 19
Creatinine 1.1
Glucose 106 H
Calcium 8.7
Total Bilirubin 4.9 H
AST 401 H
ALT 444 H
Alkaline Phosphatase 224 H
Vital Signs:
Vital Signs
Temp Pulse Resp BP Pulse Ox
98.0 F 70 16 116/80 96
09/22/23 11:21 09/22/23 14:30 09/22/23 14:30 09/22/23 12:32 09/22/23 11:59
I&O
09/21/23 09/22/23 09/23/23
06:59 06:59 06:59
Intake Total 690.75 / 790.75 2500 / 2500 390 / 390
Output Total 1150 / 1450 1475 / 1475
Balance -459.25 / -659.25 1025 / 1025 390 / 390
Physical Exam
-
General: No Apparent Distress
HEENT: Normocephalic and Atraumatic
Respiratory: Negative Wheezes
Cardiac: Regular Rhythm and S1/S2
GI: Soft and Nontender
Musculoskeletal: No Edema
Psych: Calm
Data Reviewed
-
Total Time Spent with Patient (in minutes): 42
Labs: Labs Reviewed by me
--- NOTE | 2023-09-22 16:30 | PN.CDI ---
CDI
- -
CDI:
Physician Documentation Request
Admit Date: 09/20/23 23:50
Dear Doctor Bharathi,
Patient admitted with shock, possibly septic
H&P list Chronic HFmrEF under past medical history.
09/21 hospitalist progress note states 'chronic HFpEF'
Echo conclusion states ' Left ventricular ejection fraction is 40% by visual estimate.... Compared to prior study of 01/29/2021 the LVEF was felt to be normal. On direct comparison of the images from 2020 the wall motion changes are similar. In
2018 the LVEF was estimated at 40%'
In an attempt to clarify potential conflicting documentation, please clarify the type of CHF
Type
HFmrEF
HFpEF
Other
Use of terms such as suspected, likely, concern for, or probable (associated with a specific diagnosis that is being evaluated, monitored, or treated as if it exists) are acceptable and can be coded in the inpatient setting, when documented at the
time of discharge.
Thank you,
Jennifer Hamilton RN, BSN
CDI Specialist
tiger text
Please use your independent medical judgment in providing your response.
[2023-09-22] MEDS: COUMADIN 5 MG PO (17:03)
[2023-09-22] MEDS: NOVOLOG FLEXPEN-MODERATE RESISTANCE 1 UNITS SC (17:06)
[2023-09-22 17:17] LABS: Glucose - Point of Care 186 mg/dl (70-99)
--- NOTE | 2023-09-22 20:18 | PTCARENOTE ---
Cannot verify vitals prior to 1900, previous shift. AAOx4, GOMEZ, denying any pain. Normal sinus, 60s-70s with a first degree block. BP stable, 120s/50s. Palpable radial pulses bilaterally, weak pedal pulses bilaterally. On room air, saturating 96%.
Lung sounds diminished in the bases. No BM since admission, patient reports usual pattern is every 3-4 days. Ambulates to toilet to void. Antifungal on abdomen. Wound on left groin, packed with ABD folded over, CDI, due to be changed tomorrow. Left
AC and left hand PIV WNL, patent, Right chest wall port patent, WNL. Call daniels within reach. at bedside.
[2023-09-22] MEDS: TOPROL XL 50 MG PO (21:25)
[2023-09-22 22:05] LABS: Glucose - Point of Care 222 mg/dl (70-99)
[2023-09-23] VITALS (12 sets, daily range): BP systolic 121–192; BP diastolic 53–114; BMI 38.3
--- NOTE | 2023-09-23 01:01 | PTCARENOTE ---
Rec'd pt awake, oriented, cooperative,assisted to bathroom and back to bed, SR, weak distal pulses, RA, lungs decr in bases, + bowel sounds, abd obese, soft, no n/v, voided in bathroom
[2023-09-23] MEDS: ZOSYN 100 IV ×4 (02:06→20:16)
[2023-09-23 03:04] LABS: % Basophils 0.5 % (0-2); % Eosinophils 1.2 % (0-6); % Immature Granulocytes 0.5 % (0-0.5); % Lymphocytes 10.2 % (20.5-51.1); % Monocytes 10.2 % (1.7-9.3); % Neutrophils 77.4 % (42.2-75.2); Absolute Eosinophils 0.1 10^3/uL (0-0.7); Absolute Lymphocytes 0.4 10^3/uL (1.2-3.4); Absolute Monocytes 0.4 10^3/uL (0.1-0.6); Absolute Neutrophils 3.2 10^3/uL (1.4-6.5); Hemoglobin 10.8 g/dL (13.0-18.0); Mean Corp Hgb Conc. 33.8 g/dL (33.0-37.0); Mean Corpuscular Hgb 28.3 pg (27.0-31.0); Nucleated Red Blood Cells % 0 % (-); Platelet Count 130 10^3/uL (130-400); Red Blood Cell Count 3.81 10^6/uL (4.70-6.10); White Blood Cell Count 4.1 10^3/uL (4.8-10.8)
[2023-09-23 03:16] LABS: INR 1.19; PT 14.9 Sec (11.4-14.6)
[2023-09-23 03:29] LABS: Vancomycin Random 15.7 ug/ml
[2023-09-23 03:47] LABS: ALT (SGPT) 313 U/L (0-50); AST (SGOT) 179 U/L (17-59); Albumin 2.9 g/dl (3.5-5.0); Alkaline Phosphatase 254 U/L (38-126); Blood Urea Nitrogen 16 mg/dl (9-20); Calcium 8.5 mg/dl (8.4-10.2); Carbon Dioxide 21 mmol/L (22-30); Chloride 106 mmol/L (98-107); Direct Bilirubin 2.4 mg/dl (0.0-0.4); Estimated Creatinine Clearance 107 ml/min; Glucose 201 mg/dl (70-99); Potassium 4.2 mmol/L (3.5-5.1); Sodium 135 mmol/L (135-145); Total Bilirubin 2.7 mg/dl (0.2-1.3); Total Protein 5.6 g/dl (6.3-8.2); eGFR > 60.00
[2023-09-23 08:12] LABS: Glucose - Point of Care 193 mg/dl (70-99)
[2023-09-23] MEDS: STRIVERDI RESPIMAT 2 PUFF INH (08:14)
[2023-09-23] MEDS: SPIRIVA RESPIMAT 2.5 MCG 2 PUFF INH (08:14)
[2023-09-23] MEDS: NOVOLOG FLEXPEN-MODERATE RESISTANCE 1 UNITS SC (08:28)
[2023-09-23] MEDS: PROTONIX 40 MG PO (08:29)
[2023-09-23] MEDS: TOPROL XL 25 MG PO (08:29)
--- NOTE | 2023-09-23 08:31 | PHA.VAN.FU ---
Vancomycin Assessment / Plan
- Assessment
Renal Function: SCR Decreasing
In the past 24 hrs, patient has been: Afebrile
Concomitant Antimicrobials: piperacillin/tazobactam
- Assessment - Therapeutic Drug Monitoring
Random Level: 15.7 - drawn ~10H after previous dose of 1250mg
Received 1250mg x2 doses yesterday
Patient having accumulation as anticipated based on half-life during previous dosing experience ~14H
Previous level of 12.2, drawn ~9.5H after dose of 1000mg (patient also received 2g load at 03:25 on same day as 1000mg dose)
- Dosing Plan
Dosing by Level: Re-dose today (Vanc 1500mg)
Trial of single dose today to evaluate potential for once daily dosing with previously prolonged half-life
In prior dosing experience, estimated CrCl was not predictive of vanc clearance and patient did not follow population PK
- Monitoring Plan
Random Level: 09/23 06
- Follow Up
Pharmacy will continue to follow.
Vancomycin Follow UP
- -
Patient Age: 68
Patient Sex: Male
Vancomycin Day #: 3
Indication: Gi / Intra-Abdominal
Requesting Provider: Dr. Gonzales
Pertinent Antimicrobial Allergies:
NKDA
Height / Weight:
Height 6 ft
Actual Weight 128 kg
Pertinent Past Medical History: BMI ~39
- Vital Signs / Lab Results
Temp Pulse Resp BP Pulse Ox
98.2 F 62 15 171/81 99
09/23/23 07:16 09/23/23 08:29 09/23/23 08:19 09/23/23 08:29 09/23/23 08:19
Lab Results - Hematology
09/20/23 09/21/23 09/22/23
17:12 06:08 03:47
WBC 8.7 9.4 6.1
09/23/23
02:46
WBC 4.1 L
Lab Results - Chemistry
09/20/23 09/21/23 09/22/23
17:12 06:07 03:47
BUN 29 H 26 H 19
Creatinine 1.1 1.2 1.1
Estimated Creat Clear 86 81 88
Albumin 4.7 3.5 3.0 L
09/23/23
02:46
BUN 16
Creatinine 0.9
Estimated Creat Clear 107
Albumin 2.9 L
09/20/23 09/20/23 09/22/23
17:12 20:46 03:47
Lactic Acid 5.1 H* 2.7 H 1.0
Microbiology Results
09/20/23 19:00 Blood Culture - Preliminary
Blood/Venous No Growth in 48 hours- Final report to follow
09/20/23 18:22 Blood Culture - Preliminary
Blood/Venous No Growth in 48 hours- Final report to follow
09/20/23 17:12 Blood Culture - Preliminary
Blood/Venous No Growth in 48 hours- Final report to follow
09/20/23 19:00 Wound Culture - Preliminary
Abdomen Gram Stain - Preliminary
Therapeutic Drug Monitoring
Random Vancomycin 15.7 ug/ml 09/23/23 02:46
--- NOTE | 2023-09-23 08:34 | W.PN.HOSP.TC ---
Today's Communication/Plan
-
continue Abx pending wound culture
resume oral diabetic meds
follow LFTs
Assessment / Plan
Assessment / Plan
Assessment:
Shock, possibly septic
- resolved, off pressors
- BP improved, cap IVF
- trend lactates
- continue Vanco/Zosyn for now; follow cultures
Transaminitis with hyperbilirubinemia
- acute
- DILI Vs shock vs anatomic abnormality
- hold Amio
- noted recent Augmentin use
- trend LFTs which are improving
- hepatitis panel so far negative
- MRI/MRCP: negative
- GI following
- advanced diet to regular
Hx of SCC of groin s/p chemo/XRT in 2022 and BCC of face on immunotherapy with libtayo
- GS following
- follows with [facility] wound care
Hypomagnesemia
Hx of PAF on Coumadin
- resume Coumadin; follow INRs. note he did receive Vit K in ER
- resume BB
- Amio on hold with elevated LFTs
COPD on Anoro
Former tobacco use history (>051-uhni-qwcn history and quit in October 2016)
DM type II (A1c: 6.7)
- resume Glipizide/MFM
- SSI
CAD with Hx of STEMI and stent to LAD
Chronic HFmrEF
- continue TAYLER/BB in AM if BP stable
DVT ppx: therapeutic INR
Code: Full
Anticipated Discharge: 24 - 48 hours
Subjective/Interval History
-
Date of Service: September 23, 2023
no new complaints
Objective Data
-
Labs:
Laboratory Results
09/23/23
02:46
WBC 4.1 L
Hgb 10.8 L
Hct 32.0 L
Plt Count 130
PT 14.9 H
INR 1.19
Sodium 135
Potassium 4.2
Chloride 106
Carbon Dioxide 21 L
BUN 16
Creatinine 0.9
Glucose 201 H
Calcium 8.5
Total Bilirubin 2.7 H
AST 179 H
ALT 313 H
Alkaline Phosphatase 254 H
Vital Signs:
Vital Signs
Temp Pulse Resp BP Pulse Ox
98.2 F 62 15 171/81 99
09/23/23 07:16 09/23/23 08:29 09/23/23 08:19 09/23/23 08:29 09/23/23 08:19
I&O
09/22/23 09/23/23 09/24/23
06:59 06:59 06:59
Intake Total 2500 / 2500 590 / 590
Output Total 1475 / 1475
Balance 1025 / 1025 590 / 590
Physical Exam
-
General: No Apparent Distress
HEENT: Normocephalic and Atraumatic
Respiratory: Negative Wheezes
Cardiac: Regular Rhythm
GI: Soft
Genito-urinary: No Costovertebral Tender
Neuro: AO x 3
Psych: Calm
Data Reviewed
-
Total Time Spent with Patient (in minutes): 42
Labs: Labs Reviewed by me
--- NOTE | 2023-09-23 09:06 | PTCARENOTE ---
provider currently at the pts bedside speaking with the pt
--- NOTE | 2023-09-23 10:24 | PTCARENOTE ---
physical therapy currently at the pts bedside and the pt stated to physical therapy, 'I have trouble getting up and once i get up i am okay, i have been independent for years, i don't use the second floor so i don't have to worry about it, i am not
getting up right now i don't need physical therapy', provider was notified
--- NOTE | 2023-09-23 10:28 | PTCARENOTE ---
the pt was received from previous fast food shift lead RN, the pt was resting in bed in the lowest position, side rails up x2, call daniels within reach, HOB elevated, no s/s of distress, the pt was off of the mining speculator, Sp02 was not on, and BP cuff was
not on, this RN asked the pt if it was okay if this RN got the pt hooked back up to the monitor and the pt stated that it was okay and the pt was agreeable to this RN obtaining vital signs, VS WNL, no c/o pain, no c/o SOB, no c/o chest pain, the pt
stated to this RN, 'I don't want the blood pressure cuff and oxygen thing on my finger all day, so i'll just take them off if you put them back on', this RN notified the provider, assessment documented in the pts work list, this RN noticed that the
pt did not have SCD's on, the pt stated to this RN, 'I am not wearing them they are annoying and i don't like them', this RN explained the importance of the SCD's to the pt and the pt stated, 'I don't care if they will help me i am not wearing
them', the pt was hypertensive this AM, provider notified, the pt will not allow this RN to check another BP at this time, this RN attempted to look at the pts left groin wound and the pt would not allow this RN to assess it, HF packed and education
and videos given to the pt, Dr. Grace came to the pts bedside to discuss the plan of care and notified the pt that he would be staying another night in the hospital, the pt was not happy with this and originally told Dr. Garvin that he would not
stay, then the pt agreed to stay if Dr. Garvin changed his diet from Low Fat to a Regular diet which Dr. Grace did, the pt is happy with this, the pt was able to get out of the bed and ambulate to the chair without any assistance and without any
difficulty, the pt is resting in chair, this RN will attempt to obtain vital signs at a later time, will continue to monitor the pt closely
[2023-09-23] MEDS: ANTIFUNGAL CLEAR TOPICAL ×2 (10:38→20:16)
--- NOTE | 2023-09-23 10:54 | CM ---
Patient seen in chair, patient reports he is eager to discharge home. CM discussed referral to [facility], patient reports he was previously working with them before admitting to the Hospital. CM will send update to [facility] liaison. CM reviewed IMM, signed,
placed in chart. Copy left for patient. CM will continue to follow for discharge planning needs.
Plan; home with [facility] when stable.
--- NOTE | 2023-09-23 11:19 | VNURNOTE ---
Spoke with patient on phone. He is current with [facility] and would like to resume our services. He has [facility] contact number if needed. EDUARDO referral placed in [facility]. Will follow hospital course.
[2023-09-23] MEDS: VANCOCIN 300 ML IV (11:45)
[2023-09-23] MEDS: VANCOCIN 300 MG IV (11:45)
[2023-09-23] MEDS: FARXIGA 10 MG PO (11:46)
[2023-09-23] MEDS: NOVOLOG FLEXPEN-MODERATE RESISTANCE 5 UNITS SC (11:53)
--- NOTE | 2023-09-23 12:01 | PTCARENOTE ---
the pt pressed the call daniels and this RN entered the pts room, the pt stated to this RN that he wanted to get up and go to the bathroom and then get back in bed, the pt was able to get up independently without any issues and ambulate to the
bathroom, the pt was then able to ambulate to the bed and get in bed, the pt is resting in bed in the lowest position, side rails up, HOB elevated, call daniels within reach, the pt allowed this RN to obtain vital signs, the pt has no complaints at
this time, the pt verbalized being happy that the provider changed his diet and the pt is stating that he will now stay in the hospital and won't leave AMA, will continue to monitor the pt closely, no change in assessment from earlier
[2023-09-23 12:07] LABS: Glucose - Point of Care 289 mg/dl (70-99)
--- NOTE | 2023-09-23 12:28 | PTCARENOTE ---
the pt has not allowed this RN to place pulse oximeter on his finger, this RN spot checked the pt and he is currently 98% on RA, no c/o SOB, will continue to monitor the pt closely
[2023-09-23] MEDS: GLUCOPHAGE PO (12:31)
--- NOTE | 2023-09-23 12:37 | PTCARENOTE ---
this RN notified Dr. Garvin of cultures that came back, per provider no special precautions need to be taken place, will continue to monitor the pt closely
--- NOTE | 2023-09-23 12:37 | PTCARENOTE ---
this RN notified Dr. Garvin of count cultures that came back, per provider non special precautions need to be taken place, will continue to monitor the pt closely
--- NOTE | 2023-09-23 13:07 | PTCARENOTE ---
the pt pressed the call daniels and this RN entered the pts room, the pt stated to this RN that he needed to use the bathroom, the pt refused to be hooked up to the youth nutritional monitor while he ambulated to the bathroom, provider notified, the pt was able
to ambulate to the bathroom and backt o bed with no issues, occupational health currently at the pts bedside speaking with the pt
--- NOTE | 2023-09-23 13:09 | W.PN.GI.CBS2 ---
Today's Communication / Plan
-
no further inpatient gi recs.
Assessment / Plan
-
Pt with abnl lfts likely multifactorial and improving (sepsis, antibiotics), no choledocholiathiasis by MRI.
- continue diet
- no further inpatient gi w/u
will sign off
Subjective
Subjective
Date of Service: September 23, 2023
Pt is eating w/o problem.
Objective
Data Reviewed
Laboratory Data:
Laboratory Results
09/23/23 02:46
09/23/23 02:46
Laboratory Results
PT 14.9 Sec (11.4-14.6) H 09/23/23 02:46
INR 1.19 09/23/23 02:46
APTT 44.5 Sec (23.4-35.0) H 09/21/23 06:07
Phosphorus 3.4 mg/dl (2.5-4.5) 09/21/23 06:07
Magnesium 1.3 mg/dl (1.6-2.3) L 09/21/23 06:07
Total Bilirubin 2.7 mg/dl (0.2-1.3) H 09/23/23 02:46
AST 179 U/L (17-59) H 09/23/23 02:46
ALT 313 U/L (0-50) H 09/23/23 02:46
Alkaline Phosphatase 254 U/L (38-126) H 09/23/23 02:46
Lipase 153 U/L (23-300) 09/20/23 17:12
Vital Signs and I&O:
Vital Signs
Temp Pulse Resp BP Pulse Ox
97.7 F 61 15 121/57 99
09/23/23 11:07 09/23/23 12:02 09/23/23 08:19 09/23/23 12:02 09/23/23 08:19
I&O
09/22/23 09/23/23 09/24/23
06:59 06:59 06:59
Intake Total 2500 / 2500 590 / 590
Output Total 1475 / 1475
Balance 1025 / 1025 590 / 590
Physical Exam
Physical Exam
HEENT: Anicteric
Neuro: Non Focal
[2023-09-23] MEDS: ZESTRIL 40 MG PO (14:03)
[2023-09-23] MEDS: GLUCOTROL 10 MG PO (14:04)
[2023-09-23 16:56] LABS: Glucose - Point of Care 99 mg/dl (70-99)
[2023-09-23] MEDS: NOVOLOG FLEXPEN-MODERATE RESISTANCE SC (17:00)
[2023-09-23] MEDS: GLUCOPHAGE 1000 MG PO (18:00)
[2023-09-23] MEDS: COUMADIN 2.5 MG PO (18:06)
--- NOTE | 2023-09-23 20:05 | PTCARENOTE ---
Cannot verify vitals prior to 1900, previous shift.
--- NOTE | 2023-09-23 20:40 | PTCARENOTE ---
Patient assessment charted in worklist. Report given to RN on .
[2023-09-23 21:47] LABS: Glucose - Point of Care 124 mg/dl (70-99)
[2023-09-23] MEDS: TOPROL XL 50 MG PO (22:33)
--- NOTE | 2023-09-24 02:08 | PTCARENOTE ---
Pt refused left groin wound assessment
[2023-09-24] MEDS: ZOSYN 100 IV ×2 (03:14→08:06)
[2023-09-24 03:19] VITALS: BP 178/79
[2023-09-24 05:02] LABS: % Basophils 0.5 % (0-2); % Eosinophils 1.3 % (0-6); % Immature Granulocytes 0.8 % (0-0.5); % Neutrophils 71.4 % (42.2-75.2); Absolute Eosinophils 0.1 10^3/uL (0-0.7); Absolute Lymphocytes 0.5 10^3/uL (1.2-3.4); Absolute Monocytes 0.5 10^3/uL (0.1-0.6); Absolute Neutrophils 2.7 10^3/uL (1.4-6.5); Hematocrit 32.7 % (39.0-52.0); Hemoglobin 11.4 g/dL (13.0-18.0); Mean Corp Hgb Conc. 34.9 g/dL (33.0-37.0); Mean Corpuscular Hgb 28.4 pg (27.0-31.0); Mean Corpuscular Volume 81.3 fL (80.0-94.0); Mean Platelet Volume 8.9 fL (7.4-10.4); Nucleated Red Blood Cells % 0 % (-); Platelet Count 143 10^3/uL (130-400); Red Blood Cell Count 4.02 10^6/uL (4.70-6.10); Red Cell Dist. Width 16.6 % (11.5-14.5); White Blood Cell Count 3.8 10^3/uL (4.8-10.8)
[2023-09-24 05:20] LABS: INR 1.24; PT 15.5 Sec (11.4-14.6)
[2023-09-24 05:36] LABS: Vancomycin Random 11.2 ug/ml
[2023-09-24 05:37] LABS: ALT (SGPT) 236 U/L (0-50); AST (SGOT) 99 U/L (17-59); Albumin 3.1 g/dl (3.5-5.0); Alkaline Phosphatase 289 U/L (38-126); Blood Urea Nitrogen 11 mg/dl (9-20); Calcium 8.7 mg/dl (8.4-10.2); Carbon Dioxide 23 mmol/L (22-30); Chloride 107 mmol/L (98-107); Estimated Creatinine Clearance 96 ml/min; Glucose 106 mg/dl (70-99); Sodium 141 mmol/L (135-145); Total Bilirubin 1.7 mg/dl (0.2-1.3); Total Protein 5.8 g/dl (6.3-8.2); eGFR > 60.00
[2023-09-24 06:00] VITALS: BMI 38.2
--- NOTE | 2023-09-24 07:33 | PHA.VAN.FU ---
Vancomycin Assessment / Plan
- Assessment
Renal Function: Stable
In the past 24 hrs, patient has been: Afebrile
Concomitant Antimicrobials: piperacillin/tazobactam
- Assessment - Therapeutic Drug Monitoring
Random Level: 11.2 - drawn ~16.5H after previous dose of 1500mg
- Dosing Plan
Dosing by Level: Re-dose today (Vanc 1750mg x1)
- Monitoring Plan
Random Level: 09/24 06
If level stable or slightly increased, may be able to schedule Vanc 1750mg Q24H
If level reduced further, likely will require Q12H interval, at least temporarily
- Follow Up
Pharmacy will continue to follow.
Vancomycin Follow UP
- -
Patient Age: 68
Patient Sex: Male
Vancomycin Day #: 4
Indication: Gi / Intra-Abdominal
Requesting Provider: Dr. Gonzales
Pertinent Antimicrobial Allergies:
NKDA
Height / Weight:
Height 6 ft
Actual Weight 127.488 kg
Pertinent Past Medical History: BMI ~39
- Vital Signs / Lab Results
Temp Pulse Resp BP Pulse Ox
97.9 F 55 18 178/79 95
09/23/23 23:26 09/24/23 03:19 09/24/23 03:19 09/24/23 03:19 09/24/23 03:19
Lab Results - Hematology
09/22/23 09/23/23 09/24/23
03:47 02:46 04:27
WBC 6.1 4.1 L 3.8 L
Lab Results - Chemistry
09/22/23 09/23/23 09/24/23
03:47 02:46 04:27
BUN 19 16 11
Creatinine 1.1 0.9 1.0
Estimated Creat Clear 88 107 96
Albumin 3.0 L 2.9 L 3.1 L
09/22/23
03:47
Lactic Acid 1.0
Microbiology Results
09/20/23 19:00 Wound Culture - Preliminary
Abdomen Pseudomonas aeruginosa
Escherichia coli
Gram Stain - Preliminary
09/20/23 19:00 Blood Culture - Preliminary
Blood/Venous No Growth in 72 hours- Final report to follow
09/20/23 18:22 Blood Culture - Preliminary
Blood/Venous No Growth in 72 hours- Final report to follow
09/20/23 17:12 Blood Culture - Preliminary
Blood/Venous No Growth in 72 hours- Final report to follow
Therapeutic Drug Monitoring
Random Vancomycin 11.2 ug/ml 09/24/23 04:27
[2023-09-24] MEDS: STRIVERDI RESPIMAT 2 PUFF INH (07:42)
[2023-09-24] MEDS: SPIRIVA RESPIMAT 2.5 MCG 2 PUFF INH (07:42)
[2023-09-24 07:45] VITALS: BP 185/88
[2023-09-24 07:53] LABS: Glucose - Point of Care 128 mg/dl (70-99)
[2023-09-24] MEDS: ANTIFUNGAL CLEAR TOPICAL (08:05)
[2023-09-24] MEDS: FARXIGA 10 MG PO (08:07)
[2023-09-24] MEDS: ZESTRIL 40 MG PO (08:07)
[2023-09-24] MEDS: TOPROL XL 25 MG PO (08:07)
[2023-09-24] MEDS: GLUCOPHAGE 1000 MG PO (08:07)
[2023-09-24] MEDS: PROTONIX 40 MG PO (08:07)
[2023-09-24] MEDS: GLUCOTROL 10 MG PO (08:08)
[2023-09-24] MEDS: NOVOLOG FLEXPEN-MODERATE RESISTANCE SC ×2 (08:16→12:35)
--- NOTE | 2023-09-24 08:57 | PTOTSP ---
Patient ambulating within the room, reports he is mobilizing at his baseline and denies changes in function. Patient agreeable to PT signing off as he denies needs. Will sign off; please reconsult if change in status occurs.
[2023-09-24] MEDS: VANCOCIN 535 MG IV (09:23)
--- NOTE | 2023-09-24 11:12 | W.PN.HOSP.TC ---
Addendum entered and electronically signed by Julien Garvin MD 09/24/23 11:23:
correction L groin wound
Addendum entered and electronically signed by Julien Garvin MD 09/24/23 11:20:
correction, cipro not levaquin
Original Note:
Today's Communication/Plan
-
dc to home with [facility]
Assessment / Plan
Assessment / Plan
Assessment:
Shock, possibly septic
- resolved, off pressors
- BP improved, cap IVF
- trend lactates
- R groin wound (POA) with culture growing pseudomonas and E. Coli. 10 days of Levaquin at dc. follow up with Dr. Gayle
Transaminitis with hyperbilirubinemia
- acute
- DILI Vs shock vs anatomic abnormality
- resume Amio at discharge
- noted recent Augmentin use
- trend LFTs which are improving
- hepatitis panel so far negative
- MRI/MRCP: negative
- GI following
- advanced diet to regular and tolerating
Hx of SCC of groin s/p chemo/XRT in 2022 and BCC of face on immunotherapy with libtayo
- GS following
- follows with [facility] wound care
Hypomagnesemia
Hx of PAF on Coumadin
- resume Coumadin; follow INRs. note he did receive Vit K in ER
- resume BB
- resume Amio at discharge
COPD on Anoro
Former tobacco use history (>168-lmqn-biai history and quit in October 2016)
DM type II (A1c: 6.7)
- resume Glipizide/MFM
- SSI
CAD with Hx of STEMI and stent to LAD
Chronic HFmrEF
- continue TAYLER/BB in AM if BP stable
DVT ppx: Coumadin
Code: Full
Anticipated Discharge: Today
Subjective/Interval History
-
Date of Service: September 24, 2023
no new complaints
Objective Data
-
Labs:
Laboratory Results
09/24/23
04:27
WBC 3.8 L
Hgb 11.4 L
Hct 32.7 L
Plt Count 143
PT 15.5 H
INR 1.24
Sodium 141
Potassium 4.0
Chloride 107
Carbon Dioxide 23
BUN 11
Creatinine 1.0
Glucose 106 H
Calcium 8.7
Total Bilirubin 1.7 H D
AST 99 H
ALT 236 H
Alkaline Phosphatase 289 H
Vital Signs:
Vital Signs
Temp Pulse Resp BP Pulse Ox
97.8 F 58 18 185/88 98
09/24/23 07:45 09/24/23 08:07 09/24/23 07:47 09/24/23 08:07 09/24/23 07:47
I&O
09/23/23 09/24/23 09/25/23
06:59 06:59 06:59
Intake Total 590 / 590 580 / 580
Balance 590 / 590 580 / 580
Physical Exam
-
General: No Apparent Distress
HEENT: Normocephalic and Atraumatic
Respiratory: Negative Wheezes
Cardiac: Regular Rhythm and S1/S2
GI: Soft and Nontender
Musculoskeletal: No Edema
Neuro: AO x 3
Psych: Calm
Data Reviewed
-
Total Time Spent with Patient (in minutes): 42
Labs: Labs Reviewed by me
--- NOTE | 2023-09-24 11:21 | W.DS.TRANS ---
DC Summary - [employer]
-
Discharge Instructions:
Sleep Apnea Risk High
Discharge Diagnosis/Procedures sepsis with shock, R groin wound infection,
elevated LFTs
Diet Regular
Activity As tolerated
Other Services [facility]
Instructions:
Stand-Alone Forms:
Changes to Home Medications: No
Discharge Medications:
DC Medications w/original date entered in [employer]
metformin 1,000 mg tablet 1,000 mg PO BIDWMEAL Diabetes 04/15/16
atorvastatin 80 mg tablet 80 mg PO QPM #30 tabs 11/13/16
amiodarone 200 mg tablet (Pacerone) 200 mg PO DAILY Arrhythmia 01/15/20
dapagliflozin propanediol 10 mg tablet (Farxiga) 10 mg PO DAILY Diabetes ##0 01/15/20
glipizide 10 mg tablet, extended release 24 hr 10 mg PO DAILY Diabetes ##0 01/15/20
lisinopril 40 mg tablet 40 mg PO DAILY Blood pressure 01/15/20
umeclidinium 62.5 mcg-vilanterol 25 mcg/actuation powdr for inhalation (Anoro Ellipta) 1 puff inhalation R DAILY Lung/breathing issues 01/15/20
warfarin 5 mg tablet (Jantoven) 5 mg PO SUMOTUTHFRSA@1800 Blood clot prevention/tx 01/15/20
metoprolol succinate 50 mg tablet,extended release 24 hr 50 mg PO HS Blood Pressure 10/22/22
metoprolol succinate 25 mg tablet,extended release 24 hr 25 mg PO DAILY Blood Pressure 10/24/22
albuterol sulfate 90 mcg/actuation aerosol inhaler 2 puff inhalation R Q6HPRN PRN sob/wheezing 09/20/23
warfarin 5 mg tablet 2.5 mg PO WE@1800 Blood Clot Prevention/Tx 09/20/23
ciprofloxacin HCl 500 mg tablet (Cipro) 500 mg PO BID #12 tabs 09/24/23
pantoprazole 40 mg tablet,delayed release 40 mg PO DAILY #30 tabs 09/24/23
Home Medication Changes
Pending Results: No
Total time spent discharging patient (in min): 42
--- NOTE | 2023-09-24 12:00 | PTCARENOTE ---
pt discharged per oder. Iv team aware and deaccess sq port. no s/s of distress noted.
[2023-09-24 12:02] VITALS: BP 151/76
--- NOTE | 2023-09-24 12:47 | CM ---
CM reviewed chart, patient plan discharge home with [facility]. CM will continue to follow for discharge planning needs.
Plan; home with [facility].
== END 2023-09-24 12:46 | disposition home health service (06) | DRG 871 ==
LOC: 2 NORTH 23:50
PROVIDERS: Emergency Medicine; Nurse Practitioner Adult Health; ADMITTING PHYSICIAN Hospitalist; ATTENDING PHYSICIAN Internal Medicine; CONSULT PHYSICIAN Internal Medicine Gastroenterology; CONSULT PHYSICIAN Surgery; EMERGENCY PHYSICIAN Student in an Organized Health Care Education/Training Program; FAMILY PHYSICIAN Physician Assistant; OTHER PHYSICIAN Internal Medicine Critical Care Medicine
DX: A41.9 Sepsis, unspecified organism (principal); R65.21 Severe sepsis with septic shock; L02.214 Cutaneous abscess of groin; E87.20 Acidosis, unspecified; K81.0 Acute cholecystitis; I50.22 Chronic systolic (congestive) heart failure; I11.0 Hypertensive heart disease with heart failure; E11.9 Type 2 diabetes mellitus without complications; J44.9 Chronic obstructive pulmonary disease, unspecified; E66.09 Other obesity due to excess calories; Z68.38 Body mass index [BMI] 38.0-38.9, adult; B96.20 Unspecified Escherichia coli [E. coli] as the cause of diseases classified elsewhere; B96.5 Pseudomonas (aeruginosa) (mallei) (pseudomallei) as the cause of diseases classified elsewhere; K71.9 Toxic liver disease, unspecified; T36.0X5A Adverse effect of penicillins, initial encounter; T36.1X5A Adverse effect of cephalosporins and other beta-lactam antibiotics, initial encounter; I25.10 Atherosclerotic heart disease of native coronary artery without angina pectoris; I25.2 Old myocardial infarction; I48.0 Paroxysmal atrial fibrillation; E78.00 Pure hypercholesterolemia, unspecified; E83.42 Hypomagnesemia; E87.5 Hyperkalemia; K57.30 Diverticulosis of large intestine without perforation or abscess without bleeding; K64.9 Unspecified hemorrhoids; K82.8 Other specified diseases of gallbladder; M19.90 Unspecified osteoarthritis, unspecified site; L30.9 Dermatitis, unspecified; N40.0 Benign prostatic hyperplasia without lower urinary tract symptoms; E80.6 Other disorders of bilirubin metabolism; R79.89 Other specified abnormal findings of blood chemistry; R91.8 Other nonspecific abnormal finding of lung field; R06.82 Tachypnea, not elsewhere classified; R45.1 Restlessness and agitation; Z79.01 Long term (current) use of anticoagulants; Z79.84 Long term (current) use of oral hypoglycemic drugs; Z79.899 Other long term (current) drug therapy; Z87.19 Personal history of other diseases of the digestive system; Z87.891 Personal history of nicotine dependence; Z85.828 Personal history of other malignant neoplasm of skin; Z92.21 Personal history of antineoplastic chemotherapy; Z92.3 Personal history of irradiation; Z95.5 Presence of coronary angioplasty implant and graft; Z82.49 Family history of ischemic heart disease and other diseases of the circulatory system
CPT/HCPCS: 71046; 74177; 74183; 76700; 80053; 80202; 82248; 82550; 82962; 83036; 83605; 83690; 83735; 83880; 84100; 84484; 85025; 85027; 85610; 85730; 86704; 86705; 86706; 86708; 86709; 86803; 87040; 87070; 87077; 87186; 87205; 93005; 93306; 94640; 96361; 96365; 96375; 97166; 99291; A9575; Q9950; Q9967

== ENCOUNTER → 2023-09-29 09:23 | Outpatient (REF) | payer MEDICARE, OTHER, SELFPAY ==
[2023-09-29 10:22] LABS: % Basophils 0.9 % (0-2); % Eosinophils 0.9 % (0-6); % Immature Granulocytes 4.9 % (0-0.5); % Neutrophils 69.3 % (42.2-75.2); Absolute Basophils 0.1 10^3/uL (0-0.2); Absolute Eosinophils 0.1 10^3/uL (0-0.7); Absolute Immature Granulocytes 0.3 10^3/uL (0-0.05); Absolute Monocytes 0.6 10^3/uL (0.1-0.6); Absolute Neutrophils 4.4 10^3/uL (1.4-6.5); Hematocrit 41.5 % (39.0-52.0); Hemoglobin 13.7 g/dL (13.0-18.0); Mean Corpuscular Hgb 28.2 pg (27.0-31.0); Mean Corpuscular Volume 85.4 fL (80.0-94.0); Nucleated Red Blood Cells % 0 % (-); Platelet Count 230 10^3/uL (130-400); Red Blood Cell Count 4.86 10^6/uL (4.70-6.10); Red Cell Dist. Width 17.5 % (11.5-14.5); White Blood Cell Count 6.3 10^3/uL (4.8-10.8)
[2023-09-29 10:44] LABS: ALT (SGPT) 91 U/L (0-50); AST (SGOT) 72 U/L (17-59); Albumin 4.1 g/dl (3.5-5.0); Alkaline Phosphatase 246 U/L (38-126); Blood Urea Nitrogen 22 mg/dl (9-20); Carbon Dioxide 23 mmol/L (22-30); Chloride 103 mmol/L (98-107); Glucose 78 mg/dl (70-99); Potassium 4.7 mmol/L (3.5-5.1); Sodium 140 mmol/L (135-145); Total Bilirubin 0.9 mg/dl (0.2-1.3); eGFR > 60.00
[2023-09-29 11:39] LABS: Free T4 1.67 ng/dl (0.78-2.19)
== END ==
LOC: REG 09:23
PROVIDERS: ATTENDING PHYSICIAN Internal Medicine Hematology & Oncology; FAMILY PHYSICIAN Physician Assistant
DX: C79.9 Secondary malignant neoplasm of unspecified site (principal); R59.9 Enlarged lymph nodes, unspecified; L02.214 Cutaneous abscess of groin; R88.8 Abnormal findings in other body fluids and substances; R97.0 Elevated carcinoembryonic antigen [CEA]; C44.82 Squamous cell carcinoma of overlapping sites of skin
CPT/HCPCS: 36415; 80053; 84439; 84443; 85025

== ENCOUNTER → 2023-10-19 16:56 | Outpatient (REF) | payer MEDICARE, OTHER, SELFPAY ==
[2023-10-19 17:32] LABS: % Basophils 0.8 % (0-2); % Eosinophils 1.5 % (0-6); % Immature Granulocytes 0.5 % (0-0.5); % Lymphocytes 19.3 % (20.5-51.1); % Neutrophils 68.9 % (42.2-75.2); Absolute Basophils 0.1 10^3/uL (0-0.2); Absolute Eosinophils 0.1 10^3/uL (0-0.7); Absolute Lymphocytes 1.1 10^3/uL (1.2-3.4); Absolute Monocytes 0.5 10^3/uL (0.1-0.6); Absolute Neutrophils 4.1 10^3/uL (1.4-6.5); Hematocrit 43.3 % (39.0-52.0); Hemoglobin 13.9 g/dL (13.0-18.0); Mean Corp Hgb Conc. 32.1 g/dL (33.0-37.0); Mean Corpuscular Hgb 27.6 pg (27.0-31.0); Mean Corpuscular Volume 85.9 fL (80.0-94.0); Mean Platelet Volume 8.9 fL (7.4-10.4); Nucleated Red Blood Cells % 0 % (-); Platelet Count 180 10^3/uL (130-400); Red Blood Cell Count 5.04 10^6/uL (4.70-6.10); Red Cell Dist. Width 16.8 % (11.5-14.5); White Blood Cell Count 5.9 10^3/uL (4.8-10.8)
[2023-10-19 17:56] LABS: ALT (SGPT) 29 U/L (0-50); AST (SGOT) 32 U/L (17-59); Albumin 4.3 g/dl (3.5-5.0); Alkaline Phosphatase 108 U/L (38-126); Blood Urea Nitrogen 22 mg/dl (9-20); Calcium 9.1 mg/dl (8.4-10.2); Carbon Dioxide 23 mmol/L (22-30); Chloride 104 mmol/L (98-107); Glucose 86 mg/dl (70-99); Potassium 4.6 mmol/L (3.5-5.1); Sodium 140 mmol/L (135-145); Total Bilirubin 0.6 mg/dl (0.2-1.3); Total Protein 6.9 g/dl (6.3-8.2); eGFR > 60.00
[2023-10-19 19:18] LABS: Free T4 1.61 ng/dl (0.78-2.19)
== END ==
LOC: REG 16:56
PROVIDERS: ATTENDING PHYSICIAN Internal Medicine Hematology & Oncology
DX: R59.9 Enlarged lymph nodes, unspecified (principal); L02.214 Cutaneous abscess of groin; R88.8 Abnormal findings in other body fluids and substances; R97.0 Elevated carcinoembryonic antigen [CEA]; C44.82 Squamous cell carcinoma of overlapping sites of skin; I50.20 Unspecified systolic (congestive) heart failure
CPT/HCPCS: 36415; 80053; 84439; 84443; 85025

== ENCOUNTER → 2023-11-09 17:09 | Outpatient (REF) | payer MEDICARE, OTHER, SELFPAY ==
[2023-11-09 17:38] LABS: % Basophils 0.6 % (0-2); % Eosinophils 1.4 % (0-6); % Immature Granulocytes 0.8 % (0-0.5); % Monocytes 8.2 % (1.7-9.3); Absolute Eosinophils 0.1 10^3/uL (0-0.7); Absolute Immature Granulocytes 0.1 10^3/uL (0-0.05); Absolute Lymphocytes 1.1 10^3/uL (1.2-3.4); Absolute Monocytes 0.5 10^3/uL (0.1-0.6); Absolute Neutrophils 4.8 10^3/uL (1.4-6.5); Hematocrit 41.5 % (39.0-52.0); Hemoglobin 14.2 g/dL (13.0-18.0); Mean Corp Hgb Conc. 34.2 g/dL (33.0-37.0); Mean Corpuscular Hgb 28.2 pg (27.0-31.0); Mean Corpuscular Volume 82.5 fL (80.0-94.0); Mean Platelet Volume 8.6 fL (7.4-10.4); Nucleated Red Blood Cells % 0 % (-); Platelet Count 195 10^3/uL (130-400); Red Blood Cell Count 5.03 10^6/uL (4.70-6.10); Red Cell Dist. Width 15.9 % (11.5-14.5); White Blood Cell Count 6.6 10^3/uL (4.8-10.8)
[2023-11-09 18:06] LABS: ALT (SGPT) 35 U/L (0-50); AST (SGOT) 40 U/L (17-59); Albumin 4.5 g/dl (3.5-5.0); Alkaline Phosphatase 83 U/L (38-126); Blood Urea Nitrogen 20 mg/dl (9-20); Calcium 9.7 mg/dl (8.4-10.2); Carbon Dioxide 25 mmol/L (22-30); Chloride 104 mmol/L (98-107); Glucose 125 mg/dl (70-99); Sodium 139 mmol/L (135-145); Total Bilirubin 0.5 mg/dl (0.2-1.3); eGFR > 60.00
[2023-11-09 19:03] LABS: Free T4 1.38 ng/dl (0.78-2.19)
== END ==
LOC: REG 17:09
PROVIDERS: ATTENDING PHYSICIAN Internal Medicine Hematology & Oncology; FAMILY PHYSICIAN Physician Assistant
DX: C79.9 Secondary malignant neoplasm of unspecified site (principal); R59.9 Enlarged lymph nodes, unspecified; L02.214 Cutaneous abscess of groin; R88.8 Abnormal findings in other body fluids and substances; R97.0 Elevated carcinoembryonic antigen [CEA]; C44.82 Squamous cell carcinoma of overlapping sites of skin; J44.9 Chronic obstructive pulmonary disease, unspecified
CPT/HCPCS: 36415; 80053; 84439; 84443; 85025

== ENCOUNTER → 2023-11-30 14:24 | Outpatient (REF) | payer MEDICARE, OTHER, SELFPAY ==
[2023-11-30 16:39] LABS: % Eosinophils 1.3 % (0-6); % Lymphocytes 17.4 % (20.5-51.1); % Monocytes 10.6 % (1.7-9.3); % Neutrophils 68.7 % (42.2-75.2); Absolute Basophils 0.1 10^3/uL (0-0.2); Absolute Eosinophils 0.1 10^3/uL (0-0.7); Absolute Immature Granulocytes 0.1 10^3/uL (0-0.05); Absolute Monocytes 0.6 10^3/uL (0.1-0.6); Absolute Neutrophils 4.1 10^3/uL (1.4-6.5); Hematocrit 41.9 % (39.0-52.0); Hemoglobin 14.2 g/dL (13.0-18.0); Mean Corp Hgb Conc. 33.9 g/dL (33.0-37.0); Mean Corpuscular Hgb 28.9 pg (27.0-31.0); Mean Corpuscular Volume 85.2 fL (80.0-94.0); Mean Platelet Volume 9.2 fL (7.4-10.4); Nucleated Red Blood Cells % 0 % (-); Platelet Count 195 10^3/uL (130-400); Red Blood Cell Count 4.92 10^6/uL (4.70-6.10); Red Cell Dist. Width 15.5 % (11.5-14.5); White Blood Cell Count 5.9 10^3/uL (4.8-10.8)
[2023-11-30 16:55] LABS: ALT (SGPT) 40 U/L (0-50); AST (SGOT) 37 U/L (17-59); Albumin 2.8 g/dl (3.5-5.0); Alkaline Phosphatase 80 U/L (38-126); Blood Urea Nitrogen 22 mg/dl (9-20); Calcium 9.6 mg/dl (8.4-10.2); Carbon Dioxide 27 mmol/L (22-30); Chloride 106 mmol/L (98-107); Glucose 86 mg/dl (70-99); Potassium 4.6 mmol/L (3.5-5.1); Sodium 140 mmol/L (135-145); Total Bilirubin 0.3 mg/dl (0.2-1.3); eGFR > 60.00
[2023-11-30 17:56] LABS: Free T4 1.09 ng/dl (0.78-2.19)
== END ==
LOC: REG 14:24
PROVIDERS: ATTENDING PHYSICIAN Internal Medicine Hematology & Oncology; FAMILY PHYSICIAN Physician Assistant
DX: C79.9 Secondary malignant neoplasm of unspecified site (principal); R59.9 Enlarged lymph nodes, unspecified; L02.214 Cutaneous abscess of groin; R88.8 Abnormal findings in other body fluids and substances; R97.0 Elevated carcinoembryonic antigen [CEA]; C44.82 Squamous cell carcinoma of overlapping sites of skin
CPT/HCPCS: 36415; 80053; 84439; 84443; 85025

== ENCOUNTER → 2023-12-22 16:20 | Outpatient (REF) | payer MEDICARE, OTHER, SELFPAY ==
[2023-12-22 10:21] LABS: % Basophils 0.2 % (0-2); % Eosinophils 1.4 % (0-6); % Immature Granulocytes 0.7 % (0-0.5); % Lymphocytes 13.4 % (20.5-51.1); % Monocytes 10.1 % (1.7-9.3); % Neutrophils 74.2 % (42.2-75.2); Absolute Eosinophils 0.1 10^3/uL (0-0.7); Absolute Lymphocytes 0.8 10^3/uL (1.2-3.4); Absolute Monocytes 0.6 10^3/uL (0.1-0.6); Absolute Neutrophils 4.3 10^3/uL (1.4-6.5); Hematocrit 42.1 % (39.0-52.0); Mean Corp Hgb Conc. 33.3 g/dL (33.0-37.0); Mean Corpuscular Hgb 28.5 pg (27.0-31.0); Mean Corpuscular Volume 85.6 fL (80.0-94.0); Mean Platelet Volume 8.8 fL (7.4-10.4); Platelet Count 169 10^3/uL (130-400); Red Blood Cell Count 4.92 10^6/uL (4.70-6.10); Red Cell Dist. Width 15.4 % (11.5-14.5); White Blood Cell Count 5.8 10^3/uL (4.8-10.8)
[2023-12-22 11:25] LABS: ALT (SGPT) 29 U/L (0-50); AST (SGOT) 30 U/L (17-59); Albumin 4.3 g/dl (3.5-5.0); Alkaline Phosphatase 86 U/L (38-126); Blood Urea Nitrogen 16 mg/dl (9-20); Calcium 9.5 mg/dl (8.4-10.2); Carbon Dioxide 25 mmol/L (22-30); Chloride 105 mmol/L (98-107); Glucose 119 mg/dl (70-99); Potassium 4.7 mmol/L (3.5-5.1); Sodium 143 mmol/L (135-145); Total Bilirubin 0.6 mg/dl (0.2-1.3); Total Protein 6.9 g/dl (6.3-8.2); eGFR > 60.00
[2023-12-22 13:25] LABS: Free T4 1.18 ng/dl (0.78-2.19)
== END ==
LOC: OIDL 16:20
PROVIDERS: ATTENDING PHYSICIAN Internal Medicine Hematology & Oncology
DX: C79.9 Secondary malignant neoplasm of unspecified site (principal)
CPT/HCPCS: 80053; 84439; 84443; 85025

== ENCOUNTER 2024-01-28 17:13 | Inpatient (IN) | payer MEDICARE, OTHER, SELFPAY ==
[2024-01-28 13:27] VITALS: BP 115/66
[2024-01-28 13:29] VITALS: BP 115/66; BMI 40.5
[2024-01-28 13:55] LABS: % Basophils 0.4 % (0-2); % Eosinophils 0.2 % (0-6); % Immature Granulocytes 0.6 % (0-0.5); % Lymphocytes 6.1 % (20.5-51.1); % Monocytes 7.6 % (1.7-9.3); % Neutrophils 85.1 % (42.2-75.2); Absolute Immature Granulocytes 0.1 10^3/uL (0-0.05); Absolute Lymphocytes 0.6 10^3/uL (1.2-3.4); Absolute Monocytes 0.8 10^3/uL (0.1-0.6); Absolute Neutrophils 8.5 10^3/uL (1.4-6.5); Hematocrit 41.8 % (39.0-52.0); Hemoglobin 14.4 g/dL (13.0-18.0); Mean Corp Hgb Conc. 34.4 g/dL (33.0-37.0); Mean Corpuscular Hgb 27.9 pg (27.0-31.0); Mean Corpuscular Volume 80.9 fL (80.0-94.0); Mean Platelet Volume 9.2 fL (7.4-10.4); Nucleated Red Blood Cells % 0 % (-); Platelet Count 148 10^3/uL (130-400); Red Blood Cell Count 5.17 10^6/uL (4.70-6.10); Red Cell Dist. Width 17.2 % (11.5-14.5)
--- NOTE | 2024-01-28 13:55 | ED.GENMED ---
History of Present Illness
General
Chief Complaint: Breathing Problem
Source: patient
Exam Limitations: none
Time Seen by Provider: 01/28/24 13:40
History of Present Illness
History of Present Illness:
68-year-old male presents with general weakness and increased shortness of breath. Patient saw his physician 2 to 3 days ago and was put on unknown medications to help. Patient called for the ambulance because he could not get out of bed but
ambulance appropriately recommended ER evaluation. Denies chest pain other infectious symptom. Complaining of some shortness of breath. Hypoxic on arrival.
Past History
Past History
ED Past Medical History: Arrthythmia (Atrial fibrillation), CAD, CHF, COPD, HTN, NIDDM and AL
ED Past Surgical History: Cardiac (Cardioversion)
Social History
Tobacco: Former smoker
Alcohol: None
Drug: None
Personal:
Living: with family
Family History
Family History: Other (Noncontributory)
Review of Systems
Review of Systems
All Other Systems: Not applicable
Constitutional: Denies fever
Respiratory: Reports trouble breathing; Denies hemoptysis
Cardiac: Denies chest pain or palpitations
Phy Exam
Physical Exam
Physical Exam:
GENERAL: Alert and oriented. Old for stated age
EYE: Orbits normal.
NECK: Supple, no neck swelling. No thyroid palpable
ENT: Pharynx without erythema
CARDIAC: Regular rate and rhythm without any obvious murmurs.
LUNGS: Mild tachypnea. Hypoxic. Mild diffuse inspiratory and expiratory rhonchi
ABDOMEN: Soft, without focal tenderness or distention
NEUROLOGICAL: Alert and oriented , grossly non-focal
SKIN: Warm and dry, no rash or lesion, no discoloration, skin intact.
MUSCULOSKELETAL: No deformity.Good color. Chronic venous hyperpigmentation changes mild edema
PSYCH: Normal and appropriate interaction.
Scores
Heart Failure Risk
Heart Failure Risk Score: Not Applicable
Course
Orders/Labs/Results
Orders:
Orders
01/28/24 13:23
Electrocardiogram (*1) Urgent
Reason for Study: Other
Other Reason for Exam: Respiratory Distress
Cardiac Monitoring- Treatment ONCE
EKG- Treatment ONCE
IV Insert/Care/Rem.- Treatment PRN
O2 Therapy [RESP] Urgent
Titrate/Wean O2 to maintain O2 sat greater than (%): 93
Special Instructions: TO MAINTAIN CONTINUOUS O2 SATS >/= 93%
Pulse Ox/cont/shift [RESP] Urgent
Quantity: 1
Special Instructions: continuous pulse ox
01/28/24 13:37
Complete Blood Count/With Diff Urgent
Comprehensive Metabolic Panel Urgent
Lactic Acid Urgent
NT-proBNP Urgent
Troponin I Urgent
Comment: ADDON
01/28/24 13:42
Portable Chest Xray [CR Chest Portable - 1 View] Urgent
Comment:
Reason For Exam: SOB
Reason Study Needs to be Portable: Patient Unstable
01/28/24 13:45
Dexamethasone Sod Phosphate [Decadron] 8 mg IV NOW STA
Ipratropium/Albuterol Sulfate [Duoneb] 3 ml INH R NOW ONE
01/28/24 13:46
COVID-19 Antigen Urgent
Source: Nasal Swab
Influenza A+B Rapid Molecular Urgent
NIMO Source: Nasal Swab
Specimen Description:
01/28/24 14:34
Add On- LAB Urgent
Tests Added?: troponin
01/28/24 14:46
Blood Culture Urgent
NIMO Source: Blood/Venous
Specimen Description:
0.9% Sodium Chloride 500 ml [Nss] 500 ml IV BOLUS
CefTRIAXone [Rocephin] 1,000 mg IV NOW STA
01/28/24 14:47
Doxycycline Hyclate [Vibramycin] 100 mg 0.9% Sodium Chloride 250 ml [Nss] 250 ml IV NOW
01/28/24 15:16
Blood Culture Routine
NIMO Source: Blood/Venous
Specimen Description:
Abnormal Lab Results
01/28/24
13:37
RDW 17.2 H %
(11.5-14.5)
Abs Immat Gran (auto) 0.1 H 10^3/uL
(0-0.05)
Absolute Neuts (auto) 8.5 H 10^3/uL
(1.4-6.5)
Absolute Lymphs (auto) 0.6 L 10^3/uL
(1.2-3.4)
Absolute Monos (auto) 0.8 H 10^3/uL
(0.1-0.6)
Immature Gran % 0.6 H %
(0-0.5)
Neutrophils % 85.1 H %
(42.2-75.2)
Lymphocytes % 6.1 L %
(20.5-51.1)
Carbon Dioxide 19 L mmol/L
(22-30)
BUN 27 H mg/dl
(9-20)
Glucose 137 H mg/dl
(70-99)
Lactic Acid 2.9 H mmol/L
(0.7-2.0)
01/28/24 13:37
01/28/24 13:37
Vital Signs
Initial and Last Documented VS:
Initial Vital Signs
Temp Pulse Resp BP Pulse Ox
100.0 F 70 25 115/66 87
01/28/24 13:29 01/28/24 13:29 01/28/24 13:29 01/28/24 13:29 01/28/24 13:29
Last Documented Vital Signs
Temp Pulse Resp BP Pulse Ox
100.0 F 70 25 115/66 87
01/28/24 13:29 01/28/24 13:29 01/28/24 13:29 01/28/24 13:29 01/28/24 13:29
MDM/Problems Addressed
Differential Diagnosis Includes:
Patient with shortness of breath hypoxia and borderline fever. Most suspicious of a COPD exacerbation. To consider CHF. Workup in progress.
*Radiology
Radiology exam reviewed: preliminary read by ED provider (Questionable right basilar infiltrate)
*Pulse Oximetry
Patient hypoxic: yes
*Critical Care Note
Total Time (30-74mins, 75-104mins- exclusive of procedures): Not Applicable
Data Reviewed
Review of Other/Old Records Reveals: Labs, Records, Radiology Studies and Testing
Update Note
Update Note:
Patient rechecked. Appears more respiratory in nature. Will do blood cultures. Cover with antibiotics. Admission.
ED Attending Note
-
Portions of this chart may have been created with voice recognition software.� Occasional wrong word or��sound alike� substitutions may have occurred due to the inherent limitations of voice recognition software.
Discharge Plan
Departure
Patient Disposition: Admit
Date of Disposition: 01/28/24
Time of Disposition: 14:45
Presentation/result/management discussed w/ accepting MD/DO: Hospitalist
Discharge Problem:
Respiratory distress/COPD exacerbation, Possible right basilar pneumonia
Prescriptions:
No Action
metformin 1,000 MG tablet
1,000 mg PO BIDWMEAL
atorvastatin 80 MG tablet
80 mg PO QPM Qty: 30 3RF
amiodarone [Pacerone] 200 MG tablet
200 mg PO DAILY
glipizide 10 mg Tablet Extended Release 24hr
10 mg PO DAILY Qty: 0
warfarin [Jantoven] 5 MG tablet
5 mg PO SUTHFRSA
lisinopril 40 MG tablet
40 mg PO DAILY
dapagliflozin propanediol [Farxiga] 10 mg Tablet
10 mg PO DAILY Qty: 0
metoprolol succinate 50 MG tablet extended release 24 hr
50 mg PO HS
metoprolol succinate 25 mg Tablet Extended Release 24 Hr
25 mg PO DAILY
warfarin 5 mg tablet
2.5 mg PO MOTUWE
albuterol sulfate 90 mcg/actuation Hfa Aerosol Inhaler
2 puff INHALATION R Q6HPRN PRN (Reason: sob/wheezing)
pantoprazole 40 mg Tablet,Delayed Release (Dr/Ec)
40 mg PO DAILY Qty: 30 0RF
levothyroxine 25 mcg Tablet
25 mcg PO DAILY
benzonatate 100 mg Capsule
100 mg PO TIDPRN PRN (Reason: cough)
amoxicillin-pot clavulanate [Augmentin] 875-125 mg Tablet
1 tab PO BID
Patient Comments:
01/28/24: filled 01/27/24 for 10 days
Anoro Ellipta 62.5-25 mcg/actuation Blister With Device
1 inh INHALATION R DAILY
Interventions
Interventions:
*Risk Screen - Suicide Last Done: 01/28/24 13:29
*General Assessment Last Done: 01/28/24 13:29
*Neglect/Abuse Screening Last Done: 01/28/24 13:29
Discharge Date and Time
Print Language: GUYANESE
[2024-01-28 14:00] VITALS: BP 107/55
[2024-01-28] MEDS: DECADRON 8 MG IV (14:01)
[2024-01-28] MEDS: DUONEB 3 ML INH ×2 (14:02→21:55)
[2024-01-28 14:04] LABS: Lactic Acid 2.9 mmol/L (0.7-2.0)
[2024-01-28 14:14] LABS: NT-proBNP 1310 pg/ml
[2024-01-28 14:15] LABS: ALT (SGPT) 31 U/L (0-50); AST (SGOT) 35 U/L (17-59); Albumin 4.1 g/dl (3.5-5.0); Alkaline Phosphatase 87 U/L (38-126); Blood Urea Nitrogen 27 mg/dl (9-20); Calcium 9.4 mg/dl (8.4-10.2); Carbon Dioxide 19 mmol/L (22-30); Chloride 103 mmol/L (98-107); Estimated Creatinine Clearance 83 ml/min; Glucose 137 mg/dl (70-99); Potassium 4.9 mmol/L (3.5-5.1); Sodium 138 mmol/L (135-145); Total Bilirubin 0.8 mg/dl (0.2-1.3); Total Protein 6.8 g/dl (6.3-8.2); eGFR > 60.00
[2024-01-28 14:23] LABS: COVID-19 Antigen Negative (Negative)
[2024-01-28 15:48] LABS: Troponin I 0.023 ng/ml
[2024-01-28] MEDS: NSS 500 IV (15:50)
[2024-01-28] MEDS: ROCEPHIN 1000 MG IV (15:50)
--- NOTE | 2024-01-28 16:19 | HPS.HSE ---
Addendum entered and electronically signed by Kvng Garcia MD 01/28/24 17:59:
I saw and examined the patient.
The GEAR HOBBER OPERATOR or PA's note was reviewed and I agree with the note.
Comment:
68M
Clinical sepsis ( SIRS plus PNA)
CXR: Patchy right basilar airspace opacities with partial obscuration of the right hemidiaphragm can be seen with pneumonia possible atelectasis
Acute hypoxic RI 2/2 right basilar PNA: S/p 2 doses of Augmentin yesterday 01/27/2024
POS Lactic acid 2.9
COVID-negative
-IV Rocephin, plus PO doxycycline
-Dexamethasone 8 mg given in ER-will continue Decadron 4 mg every 12 hours
-Tylenol as needed fever
-Blood culture x 2
-Sputum culture
-Incentive spirometry
-DuoNebs scheduled and as needed
-PT/OT/case management consult
Hypotension Benign HTN
115/66 BP soft
-Hold metoprolol succinate 25 mg daily/metoprolol succinate 50 mg at bedtime with hold parameters
-Hold lisinopril 40 mg daily
HX COPD-no acute exacerbation
Former smoker: 1 to 2 packs x 37 years then 3 packs x 10 years quit several years ago
-Continue Anoro Ellipta
#Chronic heart failure reduced EF
I/O, daily weights
BNP 1310
2D echo 09/21/2023: EF 40%, mild/moderate reduced LVSF, anterior, anteroseptal and apical hypokinesis
Prx A-fib : EKG: NSR 69 bpm, QTc 424 MS
- Continue amiodarone 20 mg daily
- Coumadin alternating doses
- Check INR
- Follows with Dr. [facility]hatia [facility] cardiology
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
Full code
IP TLM
Original Note:
Family Physician
-
Family Physician: Glen Acevedo
Chief Complaint
-
Shortness of breath, cough, nasal congestion, postnasal drip, sore throat x 4 days
History of Present Illness
68-year-old male complaining of generalized weakness with increased shortness of breath, with nasal congestion, postnasal drip, sore throat and nonproductive cough x 4 days. He reports he saw his primary care provider yesterday 01/27/2024 put on
Augmentin 1 tab p.o. twice daily of which he took 2 tablets so far and benzonatate 100 mg 3 times daily as needed cough for presumed upper respiratory infection. He reports today he was unable to get out of bed due to increased shortness of breath
and hypoxia . He was noted to be hypoxic at 87% on arrival to the ER and was placed on nasal cannula O2. He denies headache, neck pain, chest pain, palpitations, abdominal pain, nausea, vomiting, diarrhea, urinary symptoms. He has past medical
history of A-fib on Coumadin, cardioversion CAD/ND/cardiac stent, CHF, COPD, former smoker, HTN, DM2, basal cell carcinoma left inguinal area removal, active basal cell carcinoma with open wound to left lower jaw/mandible is on current Libtayo
injections via a port in his right upper chest, OA, GI bleed, chronic heart failure preserved EF, obesity class II.
Medical History
Past Medical History
Past Medical History: Reports Other
Additional Past Medical History:
ASCVD
Chronic HFmrEF EF 40% September 2023
Obesity
Basal cell carcinoma of the left inguinal area status post removal, radiation, XRT March 2023
Basal cell carcinoma left jaw/mandible on current Libtayo injections via port daily
Osteoarthritis
Hypertension
History of GI bleed
Atrial Fibrillation
COPD
DM-II
Past Surgical History: Reports Other
Additional Past Surgical History:
Cardiac cath and stenting LAD October 2016
Left knee MCL repair
Bilateral inguinal hernia repair
I&D and incision of the left inguinal hernia and abscesses cancer
I&D Left Groin Abscess (04/2023)
Social History
Tobacco: Non-smoker
Alcohol: Occasional (Rare)
Drug: None
Personal:
Living: With Family
Family History
Family History: CAD, Diabetes and Hypertension
Allergies / Home Medications
Allergies reflects when Allergies were last updated in [facility].
Home Medications with original date entered in [facility]
Allergy/Medication List:
Allergies
Allergy/AdvReac Type Severity Reaction Status Date / Time
No Known Allergies Allergy Verified 09/20/23 16:41
Home Medications
metformin 1,000 mg tablet 1,000 mg PO BIDWMEAL Diabetes 04/15/16
atorvastatin 80 mg tablet 80 mg PO QPM #30 tabs 11/13/16
amiodarone 200 mg tablet (Pacerone) 200 mg PO DAILY Arrhythmia 01/15/20
dapagliflozin propanediol 10 mg tablet (Farxiga) 10 mg PO DAILY Diabetes ##0 01/15/20
glipizide 10 mg tablet, extended release 24 hr 10 mg PO DAILY Diabetes ##0 01/15/20
lisinopril 40 mg tablet 40 mg PO DAILY Blood pressure 01/15/20
warfarin 5 mg tablet (Jantoven) 5 mg PO SUTHFRSA Blood clot prevention/tx 01/15/20
metoprolol succinate 50 mg tablet,extended release 24 hr 50 mg PO HS Blood Pressure 10/22/22
metoprolol succinate 25 mg tablet,extended release 24 hr 25 mg PO DAILY Blood Pressure 10/24/22
albuterol sulfate 90 mcg/actuation aerosol inhaler 2 puff inhalation R Q6HPRN PRN sob/wheezing 09/20/23
warfarin 5 mg tablet 2.5 mg PO MOTUWE Blood Clot Prevention/Tx 09/20/23
pantoprazole 40 mg tablet,delayed release 40 mg PO DAILY #30 tabs 09/24/23
amoxicillin 875 mg-potassium clavulanate 125 mg tablet 1 tab PO BID 01/28/24
benzonatate 100 mg capsule 100 mg PO TIDPRN PRN cough 01/28/24
levothyroxine 25 mcg tablet 25 mcg PO DAILY 01/28/24
umeclidinium 62.5 mcg-vilanterol 25 mcg/actuation powdr for inhalation (Anoro Ellipta) 1 inh inhalation R DAILY 01/28/24
Review of Systems
-
History Source: Patient
A 12 point ROS was completed and negative except as noted: Yes
Constitutional: Reports Fever, Fatigue and Chills
EENT: Reports Sore Throat, Runny Nose and Other (Nasal congestion, postnasal drip, chronic left-sided open wound with known basal cell carcinoma to left mandible)
Respiratory: Reports Cough (Nonproductive) and Trouble Breathing
Cardiac: Denies Chest Pain, Diaphoresis, Palpitations or Syncope
Abdomen/GI: Denies Abdominal Pain, Nausea, Vomiting, Diarrhea, Constipated, Bloody Stools or Black Stools
: Denies Dysuria, Frequency, Flank Pain, Incontinence, Difficulty Voiding, Urgency or Bleeding
Musculoskeletal: Denies Joint Pain or Edema
Skin: Reports Other (Port right upper chest wall); Denies Itching or Rash
Neurological: Denies Dizzy, Headache or Weakness
Endocrine: Reports No Symptoms
Hematologic/Lymphatic: Reports No Symptoms
Psych: Reports Calm
Physical Exam
Vital Signs
Vital Signs
Temp Pulse Resp BP Pulse Ox
100.0 F 70 25 115/66 87
01/28/24 13:29 01/28/24 13:29 01/28/24 13:29 01/28/24 13:29 01/28/24 13:29
Physical Exam
General: Conversant, Fever and Chills; No Pain
HEENT: NormoCephalic, Anicteric, Moist mucous membranes, PERRLA, [place] Conjunctivae, No Ptosis, Neck Nontender, Oxygen (2 L nasal cannula) and Other (chronic left-sided open wound with known basal cell carcinoma to left mandible); No Pharyngeal
Erythema
Respiratory: Rhonchi (Scattered throughout both lung moser); No Wheezes or Rales
Cardiac: S1/S2 and Regular Rhythm; No Murmur, Rub, Gallop, Peripheral Edema or JVD
Breast: Deferred by me
GI: Soft, Non Tender, Non Distended, Normal Bowel Sounds and No Hepatosplenomegaly
Rectal: Deferred by Provider
Genito-urinary: Deferred by me
Musculoskeletal: No Clubbing, No Cyanosis and No Edema
Skin: Warm, Dry and IV/Catheter Site (Port right upper chest wall); No Rash or Jaundice
Neuro: AO x 3, No Motor Deficits, Nonfocal/grossly intact, Cranial Nerves Intact and No Sensory Deficits; No Slurred Speech, Facial Droop, Tremors or Sedated
Psych: Calm
Laboratory Results
-
01/28/24 13:37
01/28/24 13:37
Laboratory Results
Lactic Acid 2.9 mmol/L (0.7-2.0) H 01/28/24 13:37
Total Bilirubin 0.8 mg/dl (0.2-1.3) 01/28/24 13:37
AST 35 U/L (17-59) 01/28/24 13:37
ALT 31 U/L (0-50) 01/28/24 13:37
Alkaline Phosphatase 87 U/L (38-126) 01/28/24 13:37
Troponin I Cancelled 01/28/24 13:45
Data Reviewed
-
Diagnostic Radiology: Report Reviewed by me
Lab Data: Labs Reviewed by me
Impression/Plan
-
Impression/plan:
Admit to telemetry
#SIRS with Acute hypoxic respiratory insufficiency 2/2 right basilar PNA
Patient took 2 doses of Augmentin yesterday 01/27/2024
100 F, 87% RA, 93% 2 LNC, 115/66, HR 70
Lactic acid 2.9 will trend
COVID-negative
-IV Rocephin, IV doxycycline-will continue IV Rocephin, p.o. doxycycline twice daily
-Dexamethasone 8 mg given in ER-will continue Decadron 4 mg every 12 hours
-Tylenol as needed fever
-Blood culture x 2
-Sputum culture
-Incentive spirometry
-DuoNebs scheduled and as needed
-PT/OT/case management consult
CXR: Patchy right basilar airspace opacities with partial obscuration of the right hemidiaphragm can be seen with pneumonia possible atelectasis.
Cardiomegaly
#Hypotension/HTN�benign
115/66 BP soft
-Hold metoprolol succinate 25 mg daily/metoprolol succinate 50 mg at bedtime with hold parameters
-Hold lisinopril 40 mg daily
#COPD-no acute exacerbation
#Former smoker
1 to 2 packs x 37 years then 3 packs x 10 years quit several years ago
-Continue Anoro Ellipta
#Suspected sleep apnea
-Patient reports he was referred to his tooling engineering tech to get pulmonary function studies for possible CPAP
-I advised patient to obtain the prescription for this or set an appointment as the masks have changed over the years due to his fear of using a full mask
#Current Basal carcinoma left lower jaw and mandible-open dry wound
-Is on Libtayo injection via port right upper chest
-Follows with [place] oncology
#Basal cell carcinoma of the left inguinal area with removal status post chemo/XRT March 2023
#CAD/ND/cardiac stent LAD October 2016
-Continue beta-yury, atorvastatin 80 mg every afternoon, warfarin
#Chronic heart failure reduced EF
I/O, daily weights
BNP 1310
2D echo 09/21/2023: EF 40%, mild/moderate reduced LVSF, anterior, anteroseptal and apical hypokinesis
#A-fib paroxysmal
-Continue amiodarone 20 mg daily, Coumadin alternating doses
-Check INR
-Follows with Dr. Bhatia [facility] cardiology
EKG: NSR 69 bpm, QTc 424 MS
#DM 2
-Accu-Cheks with SSI, check HgbA1c
-Hold metformin at 1000 mg twice daily, hold glipizide 10 mg daily, hold Farxiga 10 mg daily
#Hypothyroidism
-Continue levothyroxine 25 mcg p.o. daily
#GI bleed Hx
-Continue Protonix 40 mg daily
#Class II obesity due to excess calorie consumption�BMI 40.5
-Affects all aspects of care
-Weight loss recommended
-Low-fat 1800 ADA diet
Other PMH:
Osteoarthritis
VTE prophylaxis
Continue CLINICAL DATA SPECIALIST Coumadin
Full code
[2024-01-28] MEDS: VIBRAMYCIN 260 MG IV (16:52)
[2024-01-28 17:08] LABS: INR 1.98; PT 22.7 Sec (11.4-14.6)
[2024-01-28] MEDS: COUMADIN 5 MG PO (19:57)
[2024-01-28 21:12] VITALS: BP 104/42
[2024-01-28 21:54] VITALS: BP 118/49
[2024-01-28 22:37] VITALS: BMI 39.7
[2024-01-28] MEDS: LIPITOR 80 MG PO (22:47)
[2024-01-28 23:22] VITALS: BMI 39.7
[2024-01-28 23:30] VITALS: BP 100/36
[2024-01-29] VITALS (8 sets, daily range): BP systolic 117–144; BP diastolic 56–75; PULSE 85–86; O2SAT 98–99; BMI 39.5
[2024-01-29 00:02] LABS: Glucose - Point of Care 319 mg/dl (70-99)
[2024-01-29] MEDS: DECADRON 4 MG IV ×2 (02:28→14:32)
[2024-01-29] MEDS: SYNTHROID 25 MCG PO (04:19)
[2024-01-29 06:30] LABS: INR 1.91; PT 22.1 Sec (11.4-14.6)
[2024-01-29 06:33] LABS: % Basophils 0.1 % (0-2); % Immature Granulocytes 0.4 % (0-0.5); % Lymphocytes 4.4 % (20.5-51.1); % Monocytes 5.4 % (1.7-9.3); % Neutrophils 89.7 % (42.2-75.2); Absolute Lymphocytes 0.4 10^3/uL (1.2-3.4); Absolute Monocytes 0.5 10^3/uL (0.1-0.6); Absolute Neutrophils 8.6 10^3/uL (1.4-6.5); Hematocrit 39.2 % (39.0-52.0); Hemoglobin 13.5 g/dL (13.0-18.0); Mean Corp Hgb Conc. 34.4 g/dL (33.0-37.0); Mean Corpuscular Hgb 28.2 pg (27.0-31.0); Mean Platelet Volume 9.6 fL (7.4-10.4); Nucleated Red Blood Cells % 0 % (-); Platelet Count 148 10^3/uL (130-400); Red Blood Cell Count 4.78 10^6/uL (4.70-6.10); White Blood Cell Count 9.6 10^3/uL (4.8-10.8)
[2024-01-29 07:00] LABS: ALT (SGPT) 29 U/L (0-50); AST (SGOT) 29 U/L (17-59); Albumin 3.8 g/dl (3.5-5.0); Alkaline Phosphatase 79 U/L (38-126); Blood Urea Nitrogen 33 mg/dl (9-20); Calcium 9.1 mg/dl (8.4-10.2); Carbon Dioxide 22 mmol/L (22-30); Chloride 101 mmol/L (98-107); Estimated Creatinine Clearance 75 ml/min; Glucose 183 mg/dl (70-99); Potassium 5.1 mmol/L (3.5-5.1); Sodium 138 mmol/L (135-145); Total Bilirubin 0.7 mg/dl (0.2-1.3); Total Protein 6.5 g/dl (6.3-8.2); eGFR 59.47
[2024-01-29] MEDS: SPIRIVA RESPIMAT 2.5 MCG 2 PUFF INH (08:08)
[2024-01-29] MEDS: STRIVERDI RESPIMAT 2 PUFF INH (08:08)
[2024-01-29] MEDS: DUONEB 3 ML INH ×4 (08:09→19:09)
--- NOTE | 2024-01-29 08:40 | VNURNOTE ---
Chart reviewed. Patient is current with [facility] nursing. Will continue to follow hospital course and DC plans.
[2024-01-29 08:44] LABS: Glucose - Point of Care 197 mg/dl (70-99)
[2024-01-29] MEDS: PROTONIX 40 MG PO (09:08)
[2024-01-29] MEDS: PACERONE 200 MG PO (09:08)
[2024-01-29] MEDS: VIBRAMYCIN 100 MG PO ×2 (09:08→20:48)
[2024-01-29 09:13] LABS: Glycohemoglobin (HgbA1c) 6.6 % (4.0-5.6)
[2024-01-29] MEDS: NOVOLOG FLEXPEN-LOW RESISTANCE 1 UNITS SC (09:17)
--- NOTE | 2024-01-29 09:27 | W.PN.HOSP.TC ---
Today's Communication/Plan
-
IV antibiotics. Cardiology eval.
Assessment / Plan
Assessment / Plan
Physical Exam
General: Acutely ill. Nontoxic appearance.
HEENT: NormoCephalic, Anicteric, Moist mucous membranes, PERRLA, [place] Conjunctivae, No Ptosis, Neck Nontender, Oxygen (2 L nasal cannula) and Other (chronic left-sided open wound with known basal cell carcinoma to left mandible); No Pharyngeal
Erythema
Respiratory: Rhonchi (Scattered throughout both lung moser); No Wheezes or Rales
Cardiac: S1/S2 and Regular Rhythm; No Murmur, Rub, Gallop, Peripheral Edema or JVD
Breast: Deferred by me
GI: Soft, Non Tender, Non Distended, Normal Bowel Sounds and No Hepatosplenomegaly
Rectal: Deferred by Provider
Genito-urinary: Deferred by me
Musculoskeletal: No Clubbing, No Cyanosis and No Edema
Skin: Warm, Dry and IV/Catheter Site (Port right upper chest wall); No Rash or Jaundice
Neuro: AO x 3, No Motor Deficits, Nonfocal/grossly intact, Cranial Nerves Intact and No Sensory Deficits; No Slurred Speech, Facial Droop, Tremors or Sedated
Psych: Calm
A/P:
Probable sepsis due to Pneumonia:
Continue antibiotics, IV Rocephin and oral doxycycline.
Follow-up blood cultures but so far no growth-he has a medical port.
Noticed mildly elevated lactate-repeat lactate today
Check sputum culture
Follow temperature curve and WBC
COPD exacerbation:
Continue IV steroids today and change to oral tomorrow
Continue bronchodilators
On Anoro Ellipta
Hypotension:
Not entirely clear etiology, could be medications related or cardiogenic or ?infection (while he has pneumonia, no leukocytosis or toxic appearance)
Continue holding some antihypertensives like TAYLER inhibitor but restart beta-yury.
Monitor blood pressure and adjust medications accordingly
Chronic HFrEF:
Not on diuretics
Received IV fluids yesterday
BNP 1310 upon admission
Hold GDMT medications including TAYLER inhibitor due to hypotension and restart beta-blockers with holding parameters
Monitor ins and outs and daily weight
Cardiology eval
Diabetes mellitus type 2:
Add insulin sliding scale
Restart Farxiga and glipizide
Hold metformin in the setting of increased lactate
It appears notoriously noncompliant
Hemoglobin A1c surprisingly 6.6
Paroxysmal atrial fibrillation:
Resume rate control with beta-blockers today
Continue warfarin and follow-up INR
Continue amiodarone
CAD:
Continue beta-blockers
Holding TAYLER inhibitor
Continue warfarin
History of SCC left groin and basal cell carcinoma left mandible:
On Libtayo injection as outpatient
Follows up with [facility] wound care
Wound care here and declined evaluation and they recommended continue dressing.
Possible obstructive sleep apnea:
Outpatient sleep studies
DVT prophylaxis:
Warfarin
INR 1.91 today
CODE STATUS:
Full code
Total time spent on today's encounter was 52 minutes which included time spent in counseling the patient/family regarding diagnosis and treatment plan as listed above, goals of care, and symptom management. Case was discussed with nursing staff,
specialists, and care coordinators/case management. All labs and imaging personally reviewed by me. Remainder the time spent in detailed review of previous records, lab data, imaging, and other medical provider documentation.
Anticipated Discharge: 24 - 48 hours
Subjective/Interval History
-
Date of Service: January 29, 2024
Patient less cough and shortness of breath. No chest pain. He was sick since last Thursday and ended up here after events described in the HPI. Afebrile
Objective Data
-
Labs:
Laboratory Results
01/29/24
05:27
WBC 9.6
Hgb 13.5
Hct 39.2
Plt Count 148
PT 22.1 H
INR 1.91
Sodium 138
Potassium 5.1
Chloride 101
Carbon Dioxide 22
BUN 33 H
Creatinine 1.3
Glucose 183 H
Calcium 9.1
Total Bilirubin 0.7
AST 29
ALT 29
Alkaline Phosphatase 79
Vital Signs:
Vital Signs
Temp Pulse Resp BP Pulse Ox
98.0 F 80 18 141/75 98
01/29/24 07:52 01/29/24 08:16 01/29/24 08:16 01/29/24 07:52 01/29/24 08:16
I&O
01/28/24 01/29/24 01/30/24
06:59 06:59 06:59
Intake Total 240 / 240
Balance 240 / 240
--- NOTE | 2024-01-29 10:41 | WOUNDNOTE ---
LEFT GROIN WOUN
--- NOTE | 2024-01-29 10:42 | WOUNDNOTE ---
WO RN NOTE: Reviewed chart and met with patient. Patient is current with [facility] and follows with [facility] for HBO of left groin wound. Patient said he gets Pippa placed in wound 3x week by [facility] and does not want any wound care provided
at the hospital. The wound is 2 cm deep and dry. The base of the wound could not be visualized. This RN recommend packing with iodoform gauze like he said he has done in the past or with saline gauze to provide moist healing environment. Patient
continued to refuse suggestions. Wound was then covered with sterile 4x4 and ABD. Hospitalist and RN Violeta updated. Will follow as needed.
[2024-01-29 13:44] LABS: Glucose - Point of Care 264 mg/dl (70-99)
[2024-01-29] MEDS: NOVOLOG FLEXPEN-LOW RESISTANCE 3 UNITS SC (14:33)
[2024-01-29 16:49] LABS: Glucose - Point of Care 322 mg/dl (70-99)
--- NOTE | 2024-01-29 17:01 | CON.CAR ---
Addendum entered and electronically signed by Edgardo Blum MD 01/29/24 18:13:
I saw and examined the patient.
The TILE GRADER's note was reviewed and I agree with the note.
68-year-old male with history of coronary artery disease, TN and stenting of the LAD, cardiomyopathy with ejection fraction of 40%, COPD, diabetes hypercholesterolemia and paroxysmal atrial fibrillation (maintained on amiodarone and Coumadin) who
had been treated for sinus faction by his PCP but developed increased cough and shortness of breath chest x-ray raise concern for right-sided pneumonia. Patient has been admitted to the hospitalist service. Initially blood pressure running a bit
low so some of his medications were held. Blood pressure has since been improved. Of note patient had a relatively low blood pressure with an asymptomatic systolic blood pressure in the 90s on his last outpatient visit with Dr. Bhatia. He
feels significantly better today than he did yesterday. Seems that most of his complaints are likely related to pneumonia and COPD patient does have elevated proBNP but does not have other overt evidence of volume overload on exam. Weights are up
from outpatient visit but patient also states that he has not been eating well and some of the the weight gain could be an increase in his dry weight.
-Will reassess in a.m. may give small dose of Lasix tomorrow morning
-Continue antibiotics as directed by primary team.
-Coronary disease currently appears stable without angina continue current therapy
-A-fib currently stable and patient remains in sinus rhythm
-Close monitoring of INR in this patient is on antibiotics
Original Note:
Consultation
Consultation Request
Date/Time Consultation Requested: 01/29/2024 16:00
Date/Time Consultation Performed: 01/29/2024 17:00
Requesting Provider: Dr. Santos
Performing Provider: SHIRLEY Pak for Dr. Blum
Reason for Consultation: CHF evaluation
Medical History
-
Chief Complaint: Shortness of breath
History of Present Illness:
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
department with a chief complaint of shortness of breath. He initially presented to his PCP 01/27/2024 with congestion, sore throat, and painful swallowing. He tested negative for COVID-19. He was diagnosed with a sinus infection. He was started
on Augmentin by his PCP. He had a fever in his PCP office. He then developed shortness of breath and presented to the emergency department. He currently endorses a moist productive cough. He is not short of breath at rest just after his coughing
spells. No chest pain, no dizziness.
Past Medical History
Past Medical History: Arrhythmias (Paroxysmal atrial fibrillation), CAD, CHF (HFrEF, mixed cardiomyopathy), COPD, Hypercholesterolemia, Hypothyroidism and NIDDM
Past Surgical History: Orthopedic
Social History
Tobacco: Former Smoker
Alcohol: None
Drug: None
Family History
Family History: Reviewed & Not Pertinent
Allergies / Home Medications
Allergy/AdvReac Type Severity Reaction Status Date / Time
No Known Allergies Allergy Verified 09/20/23 16:41
�Medication �Instructions �Recorded �Confirmed �Type
metformin 1,000 mg tablet 1,000 mg PO BIDWMEAL Diabetes 04/15/16 01/28/24 History
atorvastatin 80 mg tablet 80 mg PO QPM #30 tabs 11/13/16 01/28/24 Rx
amiodarone 200 mg tablet (Pacerone) 200 mg PO DAILY Arrhythmia 01/15/20 01/28/24 History
dapagliflozin propanediol 10 mg 10 mg PO DAILY Diabetes ##0 01/15/20 01/28/24 History
tablet (Farxiga)
glipizide 10 mg tablet, extended 10 mg PO DAILY Diabetes ##0 01/15/20 01/28/24 History
release 24 hr
lisinopril 40 mg tablet 40 mg PO DAILY Blood pressure 01/15/20 01/28/24 History
warfarin 5 mg tablet (Jantoven) 5 [facility] Blood clot 01/15/20 01/28/24 History
prevention/tx
metoprolol succinate 50 mg 50 mg PO HS Blood Pressure 10/22/22 01/28/24 History
tablet,extended release 24 hr
metoprolol succinate 25 mg 25 mg PO DAILY Blood Pressure 10/24/22 01/28/24 History
tablet,extended release 24 hr
albuterol sulfate 90 mcg/actuation 2 puff inhalation R Q6HPRN PRN 09/20/23 01/28/24 History
aerosol inhaler sob/wheezing
warfarin 5 mg tablet 2.5 mg PO [facility] Blood Clot 09/20/23 01/28/24 History
Prevention/Tx
pantoprazole 40 mg tablet,delayed 40 mg PO DAILY #30 tabs 09/24/23 01/28/24 Rx
release
amoxicillin 875 mg-potassium 1 tab PO BID Infection 01/28/24 01/28/24 History
clavulanate 125 mg tablet
benzonatate 100 mg capsule 100 mg PO TIDPRN PRN cough 01/28/24 01/28/24 History
levothyroxine 25 mcg tablet 25 mcg PO DAILY Thyroid 01/28/24 01/28/24 History
umeclidinium 62.5 mcg-vilanterol 1 inh inhalation R DAILY 01/28/24 01/28/24 History
25 mcg/actuation powdr for Lung/Breathing Issues
inhalation (Anoro Ellipta)
Review of Systems
-
History Source: Patient
All other systems: Negative unless noted
Constitutional: Fatigue
EENT: Sore Throat
Respiratory: Cough and Trouble Breathing
Cardiac: No Symptoms
Abdomen/GI: No Symptoms
: No Symptoms
Musculoskeletal: No Symptoms
Skin: No Symptoms
Neurological: No Symptoms
Endocrine: No Symptoms
Hematologic/Lymphatic: No Symptoms
Physical Exam
Vital Signs
Temp Pulse Resp BP Pulse Ox
97.5 F 68 18 128/64 96
01/29/24 15:25 01/29/24 15:33 01/29/24 15:33 01/29/24 15:25 01/29/24 15:25
Lab Results
01/29/24 05:27
01/29/24 05:27
Troponin I Cancelled 01/28/24 13:45
Lnv-A-Dguqgftlfxl Pept 1310 pg/ml 01/28/24 13:37
Physical Exam
General: Well Developed, Well Nourished, No Apparent Distress and Comfortable
HEENT: Normocephalic, Anicteric and Moist Mucous Membranes
Respiratory: Non Labored Respirations
Cardiac: S1/S2 and Regular Rhythm
Breast: Deferred by me
GI: Non Tender, Non Distended and Normal Bowel Sounds
Rectal: Deferred by Provider
Genito-urinary: No Costovertebral Tender
Musculoskeletal: No Clubbing, No Cyanosis and No Edema
Skin: Warm and Dry
Neuro: AO x 3
Hematologic/Lymphatic: No Lymphadenopathy
Psych: Calm
Impression / Plan
-
BACKGROUND: 68M with PAF, CAD (STEMI with PCI to LAD, 2017), HLD, DM2, & COPD who presented with shortness of breath
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
Sepsis, with probable pneumonia
-Lactic acidosis, hypoxia, and hypotension with concern for PNA on CXR
-BP soft, this is chronic for him
-Per primary service
HFrEF, chronic
Mixed cardiomyopathy
-Lowest LVEF 10-15%, most recently 40%
-His weight is up but he endorses significantly increasing his caloric intake
-Can consider dose of diuretic tomorrow if BP remains stable
-GDMT as tolerated
-ACEI/ARB: Lisinopril 40 mg, on hold in the setting of hypotension, note he refused Entresto in the past
-MRA: Refused
-SGLT2i: Farxiga
-Beta-yury: Metoprolol succinate being resumed
-Diuretic: He refuses standing diuretic at home
-Sodium restricted diet, I/O, and daily weight
-Heart failure education
Paroxysmal atrial fibrillation
-Stable in sinus rhythm on amiodarone
-Oral Anticoagulation: Warfarin, daily INR assessment while on IV antibiotics
-[id number]: Score at least 5 (Heart failure, Diabetes Mellitus, Vascular disease, age 65-74)
CAD, stable without chest pain
-STEMI 2017 with PCI to LAD, on warfarin, ASA stopped due to GIB
Type 2 diabetes mellitus with hyperglycemia, per primary
Left mandibular basal cell carcinoma
SCC of the left groin
COPD, followed by Dr. Webb
SUBJECTIVE: as above
DATA:
Echocardiogram, 09/21/2023:
Mild to moderately reduced left ventricular systolic function.
Anterior, anteroseptal and apical hypokinesis.
Left ventricular ejection fraction is 40% by visual estimate.
Compared to prior study of 01/29/2021 the LVEF was felt to be normal. On
direct comparison of the images from 2020 the wall motion changes are similar.
In 2018 the LVEF was estimated at 40%. He had an anterior STEMI in 2017.
[place] Oct 2016:
LVEDP 24, EF 15% with regional WMA
80% pLAD with diffuse disease as well. ISR mLAD.
70% pOM1. 50-70% OM2, 60% OM3, Hrvb-gx-adyy collaterals.
RCA diffuse nonobstructive disease with hfjfk-af-plll collaterals.
PCI to pLAD and mLAD
Data Reviewed
-
EKG: Report Reviewed by me (EKG: Sinus rhythm, left axis, rate 69)
Radiology: Report Reviewed by me (CXR: Patchy right basilar airspace opacities with partial obscuration of the right hemidiaphragm which can be seen with pneumonia,)
Medical Tests (Nuc Med, Echo etc): Report Reviewed by me (Echocardiogram as above)
Labs: Labs Reviewed by me
Old Records: Reviewed
[2024-01-29] MEDS: GLUCOPHAGE 1000 MG PO (17:39)
[2024-01-29] MEDS: FARXIGA 10 MG PO (17:39)
[2024-01-29] MEDS: ROCEPHIN 1000 MG IV (17:40)
[2024-01-29] MEDS: STERILE WATER FOR INJECTION 10 ML IV (17:40)
[2024-01-29] MEDS: GLUCOTROL XL (EXTENDED RELEASE) 10 MG PO (17:40)
[2024-01-29] MEDS: NOVOLOG FLEXPEN-MODERATE RESISTANCE 7 UNITS SC (17:41)
[2024-01-29] MEDS: LIPITOR 80 MG PO (17:42)
[2024-01-29] MEDS: COUMADIN 5 MG PO (17:44)
--- NOTE | 2024-01-29 18:14 | CM ---
Alert awake oriented patient who lives with his Cheryl who lives in a 2 story home with 3 step to enter and bed and bathroom on first floor. He is independent in driving and in all activities of daily living.He has oxygen on here in hospital.He
is current with [facility] care . He goes to [facility].
DH VN hx / No SNF history
Pharmacy [place]
PCP DR Glen Acevedo
PLAN Home with [facility] care
[2024-01-29] MEDS: TOPROL XL 50 MG PO (20:49)
[2024-01-29 22:05] LABS: Glucose - Point of Care 275 mg/dl (70-99)
[2024-01-30 00:35] LABS: Lactic Acid 4.8 mmol/L (0.7-2.0)
--- NOTE | 2024-01-30 00:41 | PTCARENOTE ---
SHIRLEY Gordon notified regarding critical 4.8 lactic
--- NOTE | 2024-01-30 01:07 | W.PN.UPDATE ---
Update Note
Progress Note Update
Lactic acid 4.8, no fever, and normal WBC noted. Neg blood cultures x2 on 01/27.
-Will trending lactic acid and monitor vital signs and labs.
[2024-01-30] MEDS: DECADRON 4 MG IV (02:09)
[2024-01-30 03:13] VITALS: BP 116/54
[2024-01-30] MEDS: SYNTHROID 25 MCG PO (06:21)
[2024-01-30 07:33] LABS: % Immature Granulocytes 0.4 % (0-0.5); % Lymphocytes 4.7 % (20.5-51.1); % Monocytes 4.3 % (1.7-9.3); % Neutrophils 90.6 % (42.2-75.2); Absolute Lymphocytes 0.4 10^3/uL (1.2-3.4); Absolute Monocytes 0.3 10^3/uL (0.1-0.6); Hematocrit 36.2 % (39.0-52.0); Hemoglobin 12.4 g/dL (13.0-18.0); Mean Corp Hgb Conc. 34.3 g/dL (33.0-37.0); Mean Corpuscular Volume 81.7 fL (80.0-94.0); Mean Platelet Volume 9.7 fL (7.4-10.4); Nucleated Red Blood Cells % 0 % (-); Platelet Count 156 10^3/uL (130-400); Red Blood Cell Count 4.43 10^6/uL (4.70-6.10); Red Cell Dist. Width 16.9 % (11.5-14.5); White Blood Cell Count 7.7 10^3/uL (4.8-10.8)
[2024-01-30 07:52] LABS: INR 2.48; PT 26.8 Sec (11.4-14.6)
[2024-01-30] MEDS: SPIRIVA RESPIMAT 2.5 MCG 2 PUFF INH (08:03)
[2024-01-30] MEDS: DUONEB 3 ML INH ×4 (08:03→19:29)
[2024-01-30] MEDS: STRIVERDI RESPIMAT 2 PUFF INH (08:03)
[2024-01-30 08:14] VITALS: BP 152/52
[2024-01-30 08:20] LABS: ALT (SGPT) 142 U/L (0-50); AST (SGOT) 213 U/L (17-59); Albumin 3.7 g/dl (3.5-5.0); Alkaline Phosphatase 232 U/L (38-126); Blood Urea Nitrogen 41 mg/dl (9-20); Calcium 9.2 mg/dl (8.4-10.2); Carbon Dioxide 20 mmol/L (22-30); Chloride 104 mmol/L (98-107); Estimated Creatinine Clearance 82 ml/min; Glucose 182 mg/dl (70-99); Potassium 5.3 mmol/L (3.5-5.1); Sodium 140 mmol/L (135-145); Total Bilirubin 0.5 mg/dl (0.2-1.3); Total Protein 6.4 g/dl (6.3-8.2); eGFR > 60.00
[2024-01-30 08:23] LABS: Glucose - Point of Care 203 mg/dl (70-99)
[2024-01-30] MEDS: PROTONIX 40 MG PO (08:35)
[2024-01-30] MEDS: GLUCOTROL XL (EXTENDED RELEASE) 10 MG PO (08:35)
[2024-01-30] MEDS: FARXIGA 10 MG PO (08:35)
[2024-01-30] MEDS: VIBRAMYCIN 100 MG PO ×2 (08:35→20:56)
[2024-01-30] MEDS: DELTASONE 40 MG PO (08:35)
[2024-01-30] MEDS: GLUCOPHAGE 1000 MG PO (08:39)
[2024-01-30] MEDS: PACERONE 200 MG PO (08:39)
[2024-01-30] MEDS: TOPROL XL 25 MG PO (08:39)
[2024-01-30] MEDS: NOVOLOG FLEXPEN-MODERATE RESISTANCE 3 UNITS SC ×2 (08:43→12:55)
--- NOTE | 2024-01-30 08:44 | W.PN.HOSP.TC ---
Today's Communication/Plan
-
IV Lasix. IV antibiotics.
Assessment / Plan
Assessment / Plan
Physical Exam
General: Acutely ill. Nontoxic appearance.
HEENT: NormoCephalic, Anicteric, Moist mucous membranes, PERRLA, [place] Conjunctivae, No Ptosis, Neck Nontender, Oxygen (2 L nasal cannula) and Other (chronic left-sided open wound with known basal cell carcinoma to left mandible); No Pharyngeal
Erythema
Respiratory: Rhonchi (Scattered throughout both lung moser); No Wheezes or Rales
Cardiac: S1/S2 and Regular Rhythm; No Murmur, Rub, Gallop, Peripheral Edema or JVD
Breast: Deferred by me
GI: Soft, Non Tender, Non Distended, Normal Bowel Sounds and No Hepatosplenomegaly
Rectal: Deferred by Provider
Genito-urinary: Deferred by me
Musculoskeletal: No Clubbing, No Cyanosis and B/L Edema
Skin: Warm, Dry and IV/Catheter Site (Port right upper chest wall); No Rash or Jaundice
Neuro: AO x 3, No Motor Deficits, Nonfocal/grossly intact, Cranial Nerves Intact and No Sensory Deficits; No Slurred Speech, Facial Droop, Tremors or Sedated
Psych: Calm
A/P:
Probable sepsis due to Pneumonia:
Continue antibiotics, IV Rocephin and oral doxycycline.
Follow-up blood cultures but so far no growth
Elevated lactate--> trending down.
Check sputum culture
Follow temperature curve and WBC
COPD exacerbation:
Continue oral steroids today
Continue bronchodilators
On Anoro Ellipta
Acute on chronic HFrEF:
Not on diuretics as outpatient--> Lasix 20 mg IV x 1 today.
Received IV fluids prior
BNP 1310 upon admission
GDMT--> holding TAYLER inhibitor due to hypotension and restarted beta-blockers with holding parameters
Monitor ins and outs and daily weight
It appears notoriously noncompliant with salt and fluid restrictions
Cardiology eval--> discussed with cardio today
Hypotension:
Not entirely clear etiology, could be medications related or cardiogenic or ?infection (while he has pneumonia, no leukocytosis or toxic appearance)
Continue holding some antihypertensives like TAYLER inhibitor but restart beta-yury.
Monitor blood pressure and adjust medications accordingly
Elevated LFTs:
Passive venous congestion versus infection related
Continue trend
Diabetes mellitus type 2:
Add insulin sliding scale
Restart Farxiga and glipizide
Hold metformin in the setting of increased lactate
It appears notoriously noncompliant
Hemoglobin A1c surprisingly 6.6
Paroxysmal atrial fibrillation:
Resume rate control with beta-blockers today
Continue warfarin and follow-up INR
Continue amiodarone
CAD:
Continue beta-blockers
Holding TAYLER inhibitor
Continue warfarin
History of SCC left groin and basal cell carcinoma left mandible:
On Libtayo injection as outpatient
Follows up with [facility] wound care
Wound care here and declined evaluation and they recommended continue dressing.
Possible obstructive sleep apnea:
Outpatient sleep studies
DVT prophylaxis:
Warfarin
INR 2.48 today
CODE STATUS:
Full code
Total time spent on today's encounter was 52 minutes which included time spent in counseling the patient/family regarding diagnosis and treatment plan as listed above, goals of care, and symptom management. Case was discussed with nursing staff,
specialists, and care coordinators/case management. All labs and imaging personally reviewed by me. Remainder the time spent in detailed review of previous records, lab data, imaging, and other medical provider documentation.
Anticipated Discharge: 24 - 48 hours
Subjective/Interval History
-
Date of Service: January 30, 2024
Patient still has some shortness of breath and cough but much less than before. Noncompliant with diet and eating some fast food today.
Objective Data
-
Labs:
Laboratory Results
01/30/24
07:23
WBC 7.7
Hgb 12.4 L
Hct 36.2 L
Plt Count 156
PT 26.8 H
INR 2.48
Sodium 140
Potassium 5.3 H
Chloride 104
Carbon Dioxide 20 L
BUN 41 H
Creatinine 1.2
Glucose 182 H
Calcium 9.2
Total Bilirubin 0.5
AST 213 H
ALT 142 H
Alkaline Phosphatase 232 H
Vital Signs:
Vital Signs
Temp Pulse Resp BP Pulse Ox
98.2 F 64 17 118/54 95
01/30/24 08:14 01/30/24 08:39 01/30/24 08:14 01/30/24 08:39 01/30/24 08:14
I&O
01/29/24 01/30/24 01/31/24
06:59 06:59 06:59
Intake Total 240 / 240 1320 / 1320
Balance 240 / 240 1320 / 1320
--- NOTE | 2024-01-30 10:17 | W.PN.CD ---
Addendum entered and electronically signed by Edgardo Blum MD 01/30/24 13:15:
I saw and examined the patient.
The QUALITY CONTROL INSPECTOR's note was reviewed and I agree with the note.
Continued treatment for suspected pneumonia as directed by primary team
Additional Lasix given this morning as noted
Original Note:
Today's Communication / Plan
-
IV Lasix 20mg now and monitor.
Impression / Plan
-
BACKGROUND: 68M with PAF, CAD (STEMI with PCI to LAD, 2017), HLD, DM2, & COPD who presented with shortness of breath.
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
Sepsis - with probable pneumonia
-Lactic acidosis, hypoxia, and hypotension with concern for PNA on CXR.
-Per primary service.
HFrEF - acute on chronic, EF 40% on echo 09/2023.
- will give dose of IV Lasix 20mg now and monior.
- he refuses to take Lasix at home, 'I used to take it and lived my whole life in the bathroom'.
- daily weights, fluid/sodium restrictions.
- non-compliant with dietary restrictions, eating [employer] sausage biscuit with larger orange juice currently in his room.
- HF education attempted.
Mixed cardiomyopathy - chronic.
-Lowest LVEF 10-15%, most recently 40%.
-His weight is up but he endorses significantly increasing his caloric intake.
-IV Lasix 20mg now.
-GDMT as tolerated
-ACEI/ARB: Lisinopril 40 mg, on hold in the setting of hypotension, note he refused Entresto in the past.
-MRA: Refused.
-SGLT2i: Farxiga.
-Beta-yury: Metoprolol succinate.
-Diuretic: He refuses standing diuretic at home.
Paroxysmal atrial fibrillation - stable in sinus rhythm on amiodarone, continue.
-Oral Anticoagulation: Warfarin, daily INR assessment while on IV antibiotics. INR therapeutic today.
-[id number]: Score at least 5 (Heart failure, Diabetes Mellitus, Vascular disease, age 65-74)
CAD - stable without chest pain
-STEMI 2017 with PCI to LAD, on warfarin, ASA stopped due to GIB in the past.
Type 2 diabetes mellitus with hyperglycemia, per primary
Left mandibular basal cell carcinoma
COPD, followed by Dr. Webb
DATA:
Echocardiogram, 09/21/2023:
Mild to moderately reduced left ventricular systolic function.
Anterior, anteroseptal and apical hypokinesis.
Left ventricular ejection fraction is 40% by visual estimate.
Compared to prior study of 01/29/2021 the LVEF was felt to be normal. On
direct comparison of the images from 2020 the wall motion changes are similar.
In 2018 the LVEF was estimated at 40%. He had an anterior STEMI in 2017.
[facility] Oct 2016:
LVEDP 24, EF 15% with regional WMA
80% pLAD with diffuse disease as well. ISR mLAD.
70% pOM1. 50-70% OM2, 60% OM3, Wyyr-pg-kkod collaterals.
RCA diffuse nonobstructive disease with dzmva-nt-xmsa collaterals.
PCI to pLAD and mLAD
Physical Exam
Vital Signs/Labs
Vital Signs
Temp Pulse Resp BP Pulse Ox
98.2 F 64 17 118/54 95
01/30/24 08:14 01/30/24 08:39 01/30/24 08:14 01/30/24 08:39 01/30/24 08:14
01/29/24 01/30/24 01/31/24
06:59 06:59 06:59
Actual Weight 291 lb 3 oz
01/30/24 07:23
01/30/24 07:23
PT 26.8 Sec (11.4-14.6) H 01/30/24 07:23
INR 2.48 01/30/24 07:23
01/28/24
13:37
Wyo-Q-Bsjashvzzru Pept 1310
LAB Results
01/28/24 01/28/24
13:37 13:45
Troponin I 0.023 Cancelled
Physical Exam
Constitutional: No acute distress
EENT: Anicteric and Moist mucous membranes
Cardiovascular: Rhythm & rate is regular
Respiratory: Respiratory effort normal and Crackles Present (bibasilar)
GI: Soft, Non tender and Normal bowel sounds
Neuro/Psych: AO x 3
Other: Skin (warm, dry)
Data Reviewed
-
Date of Service: January 30, 2024
Medical Decision Making: Reviewed Test Results
EKG: Tracing Personally Visualized and interpreted
Echo: Report Reviewed by me
Labs: Labs Reviewed by me
Old Records: Reviewed
[2024-01-30] MEDS: LASIX 20 MG IV (10:26)
[2024-01-30 12:04] LABS: Glucose - Point of Care 245 mg/dl (70-99)
[2024-01-30 12:08] LABS: Lactic Acid 5.8 mmol/L (0.7-2.0)
[2024-01-30 12:34] VITALS: BP 142/65
[2024-01-30] MEDS: STERILE WATER FOR INJECTION 10 ML IV (15:55)
[2024-01-30] MEDS: ROCEPHIN 1000 MG IV (15:55)
[2024-01-30 16:21] VITALS: BP 148/71
[2024-01-30 16:53] LABS: Glucose - Point of Care 291 mg/dl (70-99)
[2024-01-30] MEDS: LIPITOR 80 MG PO (17:04)
[2024-01-30] MEDS: COUMADIN 5 MG PO (17:05)
[2024-01-30] MEDS: NOVOLOG FLEXPEN-MODERATE RESISTANCE 5 UNITS SC (17:39)
[2024-01-30 20:18] LABS: Lactic Acid 5.8 mmol/L (0.7-2.0)
[2024-01-30 20:24] VITALS: BP 136/59
[2024-01-30] MEDS: TOPROL XL 50 MG PO (21:00)
[2024-01-30 21:10] LABS: Glucose - Point of Care 277 mg/dl (70-99)
[2024-01-30 23:55] VITALS: BP 131/51
[2024-01-31 03:40] VITALS: BP 137/55
[2024-01-31 06:16] LABS: % Immature Granulocytes 0.4 % (0-0.5); % Lymphocytes 7.8 % (20.5-51.1); % Monocytes 7.8 % (1.7-9.3); Absolute Lymphocytes 0.6 10^3/uL (1.2-3.4); Absolute Monocytes 0.6 10^3/uL (0.1-0.6); Hematocrit 36.1 % (39.0-52.0); Hemoglobin 12.4 g/dL (13.0-18.0); Mean Corp Hgb Conc. 34.3 g/dL (33.0-37.0); Mean Corpuscular Hgb 28.1 pg (27.0-31.0); Mean Corpuscular Volume 81.9 fL (80.0-94.0); Mean Platelet Volume 9.9 fL (7.4-10.4); Nucleated Red Blood Cells % 0 % (-); Platelet Count 156 10^3/uL (130-400); Red Blood Cell Count 4.41 10^6/uL (4.70-6.10); Red Cell Dist. Width 17.2 % (11.5-14.5); White Blood Cell Count 7.2 10^3/uL (4.8-10.8)
[2024-01-31 06:30] LABS: INR 3.02; PT 31.3 Sec (11.4-14.6)
[2024-01-31 06:38] LABS: ALT (SGPT) 99 U/L (0-50); AST (SGOT) 80 U/L (17-59); Albumin 3.7 g/dl (3.5-5.0); Alkaline Phosphatase 178 U/L (38-126); Blood Urea Nitrogen 44 mg/dl (9-20); Calcium 9.2 mg/dl (8.4-10.2); Carbon Dioxide 23 mmol/L (22-30); Chloride 104 mmol/L (98-107); Estimated Creatinine Clearance 89 ml/min; Glucose 138 mg/dl (70-99); Potassium 4.8 mmol/L (3.5-5.1); Sodium 140 mmol/L (135-145); Total Bilirubin 0.4 mg/dl (0.2-1.3); Total Protein 6.2 g/dl (6.3-8.2); eGFR > 60.00
[2024-01-31] MEDS: SYNTHROID 25 MCG PO (07:07)
[2024-01-31] MEDS: SPIRIVA RESPIMAT 2.5 MCG 2 PUFF INH (07:51)
[2024-01-31] MEDS: DUONEB 3 ML INH ×2 (07:51→11:10)
[2024-01-31] MEDS: STRIVERDI RESPIMAT 2 PUFF INH (07:51)
--- NOTE | 2024-01-31 08:02 | W.PN.HOSP.TC ---
Today's Communication/Plan
-
Discharge planning today
Assessment / Plan
Assessment / Plan
Physical exam:
General: Well Developed, Well Nourished and No Apparent Distress
HEENT: Normocephalic, Atraumatic and Moist Mucous Membranes
Respiratory: Clear to Auscultation; Negative Wheezes, Rales or Rhonchi
Cardiac: Regular Rhythm and S1/S2
GI: Soft, Nontender and Nondistended
Musculoskeletal: known wounds on mandible and l groin. No Clubbing, No Cyanosis and No Edema
Neuro: Awake, Alert and Oriented
Psych: Calm
A/P:
Probable sepsis due to Pneumonia:
Continue antibiotics, IV Rocephin and oral doxycycline. Changed to oral antibiotics today
Follow-up blood cultures but so far no growth
Elevated lactate--> trending down.
Check sputum culture
Follow temperature curve and WBC
Plan to discharge home today
COPD exacerbation:
Continue oral steroids today
Continue bronchodilators
On Anoro Ellipta
Acute on chronic HFrEF:
Not on diuretics as outpatient--> Lasix 20 mg IV x 1 yesterday. Follow-up with cardiology to see if he will require oral diuretics as outpatient.
Received IV fluids prior
BNP 1310 upon admission
GDMT--> holding TAYLER inhibitor due to hypotension and restarted beta-blockers with holding parameters
Monitor ins and outs and daily weight
It appears notoriously noncompliant with salt and fluid restrictions
Cardiology eval--> discussed with cardio today
Hypotension:
Not entirely clear etiology, could be medications related or cardiogenic or ?infection (while he has pneumonia, no leukocytosis or toxic appearance)
Continue holding some antihypertensives like TAYLER inhibitor but restart beta-yury.
Monitor blood pressure and adjust medications accordingly
Elevated LFTs:
Passive venous congestion versus infection related
Continue trend
Diabetes mellitus type 2:
Add insulin sliding scale
Restart Farxiga and glipizide
Hold metformin in the setting of increased lactate
It appears notoriously noncompliant
Hemoglobin A1c surprisingly 6.6
Paroxysmal atrial fibrillation:
Resume rate control with beta-blockers today
Continue warfarin and follow-up INR
Continue amiodarone
CAD:
Continue beta-blockers
Holding TAYLER inhibitor
Continue warfarin
History of SCC left groin and basal cell carcinoma left mandible:
On Libtayo injection as outpatient
Follows up with [facility] wound care
Wound care here and declined evaluation and they recommended continue dressing.
Possible obstructive sleep apnea:
Outpatient sleep studies
DVT prophylaxis:
Warfarin
INR 2.48 today
CODE STATUS:
Full code
Anticipated Discharge: Today
Subjective/Interval History
-
Date of Service: January 31, 2024
No new complaints. Patient wants to go home today
Objective Data
-
Labs:
Laboratory Results
01/31/24
05:33
WBC 7.2
Hgb 12.4 L
Hct 36.1 L
Plt Count 156
PT 31.3 H
INR 3.02
Sodium 140
Potassium 4.8
Chloride 104
Carbon Dioxide 23
BUN 44 H
Creatinine 1.1
Glucose 138 H
Calcium 9.2
Total Bilirubin 0.4
AST 80 H
ALT 99 H
Alkaline Phosphatase 178 H
Vital Signs:
Vital Signs
Temp Pulse Resp BP Pulse Ox
98.1 F 86 18 137/55 98
01/31/24 03:40 01/31/24 07:52 01/31/24 07:52 01/31/24 03:40 01/31/24 07:52
I&O
01/30/24 01/31/2401/31/24
06:59 06:59 06:59
Intake Total 1320 / 1320 740 / 740
Balance 1320 / 1320 740 / 740
[2024-01-31 08:19] LABS: Glucose - Point of Care 111 mg/dl (70-99)
[2024-01-31 08:25] VITALS: BP 157/79
[2024-01-31] MEDS: NOVOLOG FLEXPEN-MODERATE RESISTANCE SC (08:37)
[2024-01-31] MEDS: FARXIGA 10 MG PO (08:38)
[2024-01-31] MEDS: GLUCOTROL XL (EXTENDED RELEASE) 10 MG PO (08:38)
[2024-01-31] MEDS: TOPROL XL 25 MG PO (08:38)
[2024-01-31] MEDS: PACERONE 200 MG PO (08:38)
[2024-01-31] MEDS: VIBRAMYCIN 100 MG PO (08:38)
[2024-01-31] MEDS: PROTONIX 40 MG PO (08:38)
[2024-01-31] MEDS: DELTASONE 40 MG PO (08:39)
[2024-01-31 11:48] LABS: Glucose - Point of Care 171 mg/dl (70-99)
[2024-01-31] MEDS: NOVOLOG FLEXPEN-MODERATE RESISTANCE 1 UNITS SC (11:58)
[2024-01-31 12:49] VITALS: BP 131/68
[2024-01-31] MEDS: OMNICEF 300 MG PO (13:02)
--- NOTE | 2024-01-31 14:00 | W.DCSUMMARY ---
Discharge Summary
Discharge Data
Date of Admission: 01/28/24
Date of Discharge: 01/31/24
-
Pending Results: No
Hospital Course
Patient is 68 years old male with history of CAD, cardiomyopathy, COPD, diabetes mellitus, hyperlipidemia, A-fib, came into the hospital cough and shortness of breath. He was treated with oral antibiotic but did not get any better and came into the
hospital. Chest x-ray was consistent with right-sided pneumonia. He also had increased lactate there was a combination of infection but also most likely related to metformin use. Metformin has been on hold and instructed to restart if continues
to do well as outpatient over the next 48 hours. He was treated with IV antibiotic and was able to switch to oral antibiotics upon discharge. He also was treated with IV Lasix. Cardiology will reevaluate as outpatient if he woud require oral
diuretics but continue with GDMT for now. He is notoriously noncompliant with lifestyle changes in terms of heart failure and diabetes. He also was treated with IV steroids that was switched to oral steroids and will continue with a tapering oral
course as outpatient for his COPD. We had a follow-up chest x-ray that shows significant improvement. Patient did well rest of the hospital stay. He is oxygenating on room air and he is afebrile and hemodynamically stable. He will be discharged
in relatively stable condition today.
Discharge duration: 35 minutes
Discharge Plan
-
Patient Disposition: Home (Routine Discharge)
Discharge Diagnosis/Procedures: Sepsis. Pneumonia. Lactic acidosis. Acute on chronic systolic congestive heart failure. Chronic obstructive pulmonary disease exacerbation.
Diet: Low Cholesterol, 2 Gram Sodium, Diabetic, Carb Controlled and Restrict fluids to 48 oz
Activity: As tolerated
Blood Work: Please PCP to order CBC, BMP, INR within 1 week
Specialty Instructions: Weigh Daily- Call MD for wt gain/loss 3 lbs overnight/5 lbs in 1 week
Activity Restrictions/Additional Instructions:
Wound Care Instructions Continue to follow up with and [facility].
Referrals:
Glen Acevedo MD [Family Provider] - in less than 1 week
Edgardo Blum MD [Active] - in two to three weeks
Prescriptions:
New
doxycycline hyclate 100 mg Capsule
100 mg PO Q12 1 Days Qty: 2 0RF
cefdinir 300 mg Capsule
300 mg PO Q12 5 Days Qty: 10 0RF
prednisone 10 mg Tablet
See Rx Instructions .ROUTE .COMPLEX Qty: 30 0RF
Rx Instructions:
Take By Mouth:
40 mg daily x3 days, 30 mg daily x3 days,
20 mg daily x3 days, 10 mg daily x3 days.
Continued
atorvastatin 80 MG tablet
80 mg PO QPM Qty: 30 3RF
amiodarone [Pacerone] 200 MG tablet
200 mg PO DAILY
glipizide 10 mg Tablet Extended Release 24hr
10 mg PO DAILY Qty: 0
lisinopril 40 MG tablet
40 mg PO DAILY
dapagliflozin propanediol [Farxiga] 10 mg Tablet
10 mg PO DAILY Qty: 0
metoprolol succinate 50 MG tablet extended release 24 hr
50 mg PO HS
metoprolol succinate 25 mg Tablet Extended Release 24 Hr
25 mg PO DAILY
albuterol sulfate 90 mcg/actuation Hfa Aerosol Inhaler
2 puff INHALATION R Q6HPRN PRN (Reason: sob/wheezing)
pantoprazole 40 mg Tablet,Delayed Release (Dr/Ec)
40 mg PO DAILY Qty: 30 0RF
levothyroxine 25 mcg Tablet
25 mcg PO DAILY
benzonatate 100 mg Capsule
100 mg PO TIDPRN PRN (Reason: cough)
Anoro Ellipta 62.5-25 mcg/actuation Blister With Device
1 inh INHALATION R DAILY
Held
metformin 1,000 MG tablet
1,000 mg PO BIDWMEAL
Hold Instructions: Resume on 02/02/24.
warfarin [Jantoven] 5 MG tablet
5 mg PO SUTHFRSA
Hold Instructions: Resume on 02/04/24.
warfarin 5 mg tablet
2.5 mg PO MOTUWE
Hold Instructions: Resume on 02/01/24.
Discontinued
amoxicillin-pot clavulanate [Augmentin] 875-125 mg Tablet
1 tab PO BID
Patient Comments:
01/28/24: filled 01/27/24 for 10 days
Discharge Orders:
Discharge Patient (As Directed); Ordered 01/31/24
Ordered By: Alex Santos
Discharge Date and Time
Discharge Date/Time: 01/31/24 15:15
Print Language: HAITIAN
[2024-01-31] MEDS: FLUAD (65 yr+) 2024-2025 FORMULA 0.5 ML IM (14:56)
== END 2024-01-31 15:15 | disposition home health service (06) | DRG 871 ==
LOC: 3 WEST ACU 17:13
PROVIDERS: Clinical Nurse Specialist Family Health; Emergency Medicine; Nurse Practitioner Family; ADMITTING PHYSICIAN Internal Medicine; ATTENDING PHYSICIAN Hospitalist; CONSULT PHYSICIAN Internal Medicine Cardiovascular Disease; EMERGENCY PHYSICIAN Emergency Medicine; FAMILY PHYSICIAN Family Medicine
DX: A41.9 Sepsis, unspecified organism (principal); I50.23 Acute on chronic systolic (congestive) heart failure; J18.9 Pneumonia, unspecified organism; E87.20 Acidosis, unspecified; I42.9 Cardiomyopathy, unspecified; J44.0 Chronic obstructive pulmonary disease with (acute) lower respiratory infection; J44.1 Chronic obstructive pulmonary disease with (acute) exacerbation; I11.0 Hypertensive heart disease with heart failure; E03.9 Hypothyroidism, unspecified; E11.9 Type 2 diabetes mellitus without complications; E66.812 Obesity, class 2; E78.00 Pure hypercholesterolemia, unspecified; I48.0 Paroxysmal atrial fibrillation; I25.10 Atherosclerotic heart disease of native coronary artery without angina pectoris; Z95.5 Presence of coronary angioplasty implant and graft; M19.90 Unspecified osteoarthritis, unspecified site; R09.02 Hypoxemia; R06.03 Acute respiratory distress; R06.89 Other abnormalities of breathing; R09.82 Postnasal drip; Z91.199 Patient's noncompliance with other medical treatment and regimen due to unspecified reason; Z87.19 Personal history of other diseases of the digestive system; Z85.828 Personal history of other malignant neoplasm of skin; Z79.01 Long term (current) use of anticoagulants; Z79.84 Long term (current) use of oral hypoglycemic drugs; Z79.890 Hormone replacement therapy; Z79.899 Other long term (current) drug therapy; Z87.891 Personal history of nicotine dependence
CPT/HCPCS: 71045; 71046; 80053; 82962; 83036; 83605; 83880; 84484; 85025; 85610; 87040; 87502; 87811; 90662; 93005; 94640; 96365; 96375; 97162; 97166; 99285; G0008

== ENCOUNTER → 2024-02-17 17:02 | Outpatient (REF) | payer MEDICARE, OTHER, SELFPAY ==
[2024-02-17 17:59] LABS: % Basophils 0.5 % (0-2); % Immature Granulocytes 0.6 % (0-0.5); % Lymphocytes 13.6 % (20.5-51.1); % Monocytes 10.5 % (1.7-9.3); % Neutrophils 73.8 % (42.2-75.2); Absolute Eosinophils 0.1 10^3/uL (0-0.7); Absolute Lymphocytes 0.8 10^3/uL (1.2-3.4); Absolute Monocytes 0.7 10^3/uL (0.1-0.6); Absolute Neutrophils 4.6 10^3/uL (1.4-6.5); Hematocrit 38.4 % (39.0-52.0); Hemoglobin 12.8 g/dL (13.0-18.0); Mean Corp Hgb Conc. 33.3 g/dL (33.0-37.0); Mean Corpuscular Hgb 27.9 pg (27.0-31.0); Mean Corpuscular Volume 83.8 fL (80.0-94.0); Mean Platelet Volume 9.3 fL (7.4-10.4); Nucleated Red Blood Cells % 0 % (-); Platelet Count 145 10^3/uL (130-400); Red Blood Cell Count 4.58 10^6/uL (4.70-6.10); Red Cell Dist. Width 18.2 % (11.5-14.5); White Blood Cell Count 6.2 10^3/uL (4.8-10.8)
[2024-02-17 18:01] LABS: INR 2.44; PT 26.8 Sec (11.4-14.6)
[2024-02-17 18:10] LABS: ALT (SGPT) 39 U/L (0-50); AST (SGOT) 28 U/L (17-59); Albumin 4.1 g/dl (3.5-5.0); Alkaline Phosphatase 91 U/L (38-126); Blood Urea Nitrogen 34 mg/dl (9-20); Calcium 9.6 mg/dl (8.4-10.2); Carbon Dioxide 21 mmol/L (22-30); Chloride 106 mmol/L (98-107); Glucose 167 mg/dl (70-99); Potassium 5.1 mmol/L (3.5-5.1); Sodium 141 mmol/L (135-145); Total Bilirubin 0.9 mg/dl (0.2-1.3); Total Protein 6.9 g/dl (6.3-8.2); eGFR > 60.00
== END ==
LOC: REG 17:02
PROVIDERS: ATTENDING PHYSICIAN Physician Assistant; FAMILY PHYSICIAN Physician Assistant
DX: Z95.5 Presence of coronary angioplasty implant and graft (principal); J44.9 Chronic obstructive pulmonary disease, unspecified; E11.69 Type 2 diabetes mellitus with other specified complication; I10 Essential (primary) hypertension; I48.0 Paroxysmal atrial fibrillation
CPT/HCPCS: 36415; 80053; 85025; 85610

== ENCOUNTER → 2024-03-02 08:25 | Outpatient (REF) | payer MEDICARE, OTHER, SELFPAY ==
[2024-03-02 10:02] LABS: % Basophils 0.7 % (0-2); % Eosinophils 1.5 % (0-6); % Immature Granulocytes 1.4 % (0-0.5); % Lymphocytes 13.2 % (20.5-51.1); % Monocytes 11.8 % (1.7-9.3); % Neutrophils 71.4 % (42.2-75.2); Absolute Basophils 0.1 10^3/uL (0-0.2); Absolute Eosinophils 0.1 10^3/uL (0-0.7); Absolute Immature Granulocytes 0.1 10^3/uL (0-0.05); Absolute Monocytes 0.9 10^3/uL (0.1-0.6); Absolute Neutrophils 5.2 10^3/uL (1.4-6.5); Hematocrit 41.7 % (39.0-52.0); Hemoglobin 14.3 g/dL (13.0-18.0); Mean Corp Hgb Conc. 34.3 g/dL (33.0-37.0); Mean Corpuscular Hgb 29.9 pg (27.0-31.0); Mean Corpuscular Volume 87.2 fL (80.0-94.0); Mean Platelet Volume 9.3 fL (7.4-10.4); Nucleated Red Blood Cells % 0 % (-); Platelet Count 195 10^3/uL (130-400); Red Blood Cell Count 4.78 10^6/uL (4.70-6.10); Red Cell Dist. Width 17.5 % (11.5-14.5); White Blood Cell Count 7.2 10^3/uL (4.8-10.8)
[2024-03-02 10:43] LABS: ALT (SGPT) 24 U/L (0-50); AST (SGOT) 23 U/L (17-59); Albumin 4.4 g/dl (3.5-5.0); Alkaline Phosphatase 85 U/L (38-126); Blood Urea Nitrogen 29 mg/dl (9-20); Calcium 9.7 mg/dl (8.4-10.2); Carbon Dioxide 21 mmol/L (22-30); Chloride 106 mmol/L (98-107); Glucose 146 mg/dl (70-99); HDL Cholesterol 58 mg/dl; LDL Cholesterol, Calculated 67 mg/dl; Potassium 5.4 mmol/L (3.5-5.1); Sodium 141 mmol/L (135-145); Total Bilirubin 0.9 mg/dl (0.2-1.3); Total Cholesterol 156 mg/dl (50-199); Total Protein 7.1 g/dl (6.3-8.2); Triglyceride 159 mg/dl (10-149); Very Low Density Lipoprotein 31 mg/dl (0-30); eGFR > 60.00
== END ==
LOC: REG 08:25
PROVIDERS: ATTENDING PHYSICIAN Physician Assistant
DX: Z95.5 Presence of coronary angioplasty implant and graft (principal); J44.9 Chronic obstructive pulmonary disease, unspecified; I50.22 Chronic systolic (congestive) heart failure; I48.0 Paroxysmal atrial fibrillation; I25.5 Ischemic cardiomyopathy; I25.2 Old myocardial infarction; I25.10 Atherosclerotic heart disease of native coronary artery without angina pectoris; I10 Essential (primary) hypertension; E78.5 Hyperlipidemia, unspecified; E66.01 Morbid (severe) obesity due to excess calories; Z79.01 Long term (current) use of anticoagulants; R74.01 Elevation of levels of liver transaminase levels; C44.92 Squamous cell carcinoma of skin, unspecified; K64.0 First degree hemorrhoids; Z68.39 Body mass index [BMI] 39.0-39.9, adult; E11.69 Type 2 diabetes mellitus with other specified complication
CPT/HCPCS: 36415; 80053; 80061; 83036; 85025

== ENCOUNTER → 2024-03-07 16:09 | Outpatient (REF) | payer MEDICARE, OTHER, SELFPAY ==
[2024-03-07 17:12] LABS: Blood Urea Nitrogen 37 mg/dl (9-20); Calcium 9.7 mg/dl (8.4-10.2); Carbon Dioxide 23 mmol/L (22-30); Chloride 106 mmol/L (98-107); Glucose 129 mg/dl (70-99); Potassium 5.7 mmol/L (3.5-5.1); Sodium 142 mmol/L (135-145); eGFR > 60.00
== END ==
LOC: REG 16:09
PROVIDERS: ATTENDING PHYSICIAN Physician Assistant
DX: Z95.5 Presence of coronary angioplasty implant and graft (principal); E87.5 Hyperkalemia
CPT/HCPCS: 36415; 80048

== ENCOUNTER → 2024-03-18 16:20 | Outpatient (REF) | payer MEDICARE, OTHER, SELFPAY ==
[2024-03-18 17:50] LABS: Potassium 5.7 mmol/L (3.5-5.1)
== END ==
LOC: REG 16:20
PROVIDERS: ATTENDING PHYSICIAN Physician Assistant
DX: E87.5 Hyperkalemia (principal)
CPT/HCPCS: 84132

== ENCOUNTER 2024-05-25 18:34 | Emergency (ER) | payer MEDICARE, OTHER, SELFPAY ==
[2024-05-25 18:36] VITALS: BP 180/94
--- NOTE | 2024-05-25 20:18 | ED.SKININJ ---
HPI-Injury
General
Chief Complaint: Fall
Source: patient
Time Seen by Provider: 05/25/24 19:43
History of Present Illness-Injury
Initial Injury comments:
68-year-old male on Coumadin presents after a fall. He scraped his arm against an object in his [place] when he fell. He noted skin tears to the arm and had trouble getting it stopped bleeding. He did not hit his head. He denies headache neck pain
or shortness of breath. He denies any pain to the arm. Last tetanus unknown. No other complaints at this time
Past History
Past History
ED Past Medical History: Arrthythmia (Atrial fibrillation), CAD, CHF, COPD, HTN, NIDDM and [place]
ED Past Surgical History: Cardiac (Cardioversion)
Social History
Tobacco: Former smoker
Alcohol: None
Drug: None
Personal:
Living: with family
Family History
Family History: Other (Noncontributory)
Phy Exam
Physical Exam
Physical Exam:
General: Well appearing obese male no acute respiratory distress
HEENT: Normocephalic atraumatic
Skin: Multiple skin tears of the left arm from the elbow to the mid forearm to the hand. These are superficial. No significant bleeding. No visible foreign bodies in the wounds.
Musculoskeletal exam: The spine is nontender. Is full range of motion of the left arm without any tenderness or deformity
Neurologic exam: Alert conversing appropriately
Course
Orders/Labs/Results
Orders:
Orders
05/25/24 20:08
Tetanus/Diphth/Acelpertussis [Adacel] 0.5 ml IM .ONCE ONE
Vital Signs
Initial and Last Documented VS:
Initial Vital Signs
Temp Pulse Resp BP Pulse Ox
98.2 F 64 16 180/94 97
05/25/24 18:36 05/25/24 18:36 05/25/24 18:36 05/25/24 18:36 05/25/24 18:36
Last Documented Vital Signs
Temp Pulse Resp BP Pulse Ox
98.2 F 64 16 180/94 97
05/25/24 18:36 05/25/24 18:36 05/25/24 18:36 05/25/24 18:36 05/25/24 18:36
MDM/Problems Addressed
Differential Diagnosis Includes:
The skin tears were cleansed with saline and dried then Vaseline coated gauze was applied to the skin tears with nonstick gauze extra gauze padding and a gauze wrap on top. Tetanus vaccine updated. Offered CT of head given anticoagulated state as
well as x-ray of left arm with the trauma however he declined both of these. Wound care instructions were given return precautions were given. Tetanus vaccine updated. Stable for discharge with skin tears
*Critical Care Note
Total Time (30-74mins, 75-104mins- exclusive of procedures): Not Applicable
ED Attending Note
-
Portions of this chart may have been created with voice recognition software.� Occasional wrong word or��sound alike� substitutions may have occurred due to the inherent limitations of voice recognition software.
Discharge Plan
Departure
Patient Disposition: Home (Routine Discharge)
Date of Disposition: 05/25/24
Time of Disposition: 20:21
Patient with high blood pressure during this ER visit?: No
Discharge Problem:
Skin tear
Instructions: Wound Care (DC)
Prescriptions:
No Action
metformin 1,000 MG tablet
1,000 mg PO BIDWMEAL
atorvastatin 80 MG tablet
80 mg PO QPM Qty: 30 3RF
amiodarone [Pacerone] 200 MG tablet
200 mg PO DAILY
glipizide 10 mg Tablet Extended Release 24hr
10 mg PO DAILY Qty: 0
warfarin [Jantoven] 5 MG tablet
5 mg PO SUTHFRSA
lisinopril 40 MG tablet
40 mg PO DAILY
dapagliflozin propanediol [Farxiga] 10 mg Tablet
10 mg PO DAILY Qty: 0
metoprolol succinate 50 MG tablet extended release 24 hr
50 mg PO HS
metoprolol succinate 25 mg Tablet Extended Release 24 Hr
25 mg PO DAILY
warfarin 5 mg tablet
2.5 mg PO MOTUWE
albuterol sulfate 90 mcg/actuation Hfa Aerosol Inhaler
2 puff INHALATION R Q6HPRN PRN (Reason: sob/wheezing)
pantoprazole 40 mg Tablet,Delayed Release (Dr/Ec)
40 mg PO DAILY Qty: 30 0RF
levothyroxine 25 mcg Tablet
25 mcg PO DAILY
benzonatate 100 mg Capsule
100 mg PO TIDPRN PRN (Reason: cough)
Anoro Ellipta 62.5-25 mcg/actuation Blister With Device
1 inh INHALATION R DAILY
doxycycline hyclate 100 mg Capsule
100 mg PO Q12 1 Days Qty: 2 0RF
cefdinir 300 mg Capsule
300 mg PO Q12 5 Days Qty: 10 0RF
prednisone 10 mg Tablet
See Rx Instructions .ROUTE .COMPLEX Qty: 30 0RF
Rx Instructions:
Take By Mouth:
40 mg daily x3 days, 30 mg daily x3 days,
20 mg daily x3 days, 10 mg daily x3 days.
Activity Restrictions/Additional Instructions:
Change dressing daily. Apply nonstick gauze to the wounds. You may use Tylenol if needed for pain. Return if needed otherwise follow-up with your doctor
Interventions
Interventions:
*Risk Screen - Suicide Last Done: 05/25/24 18:36
*Neglect/Abuse Screening Last Done: 05/25/24 18:36
Discharge Date and Time
Print Language: AMHARIC
[2024-05-25] MEDS: ADACEL 0.5 ML IM (20:23)
== END 2024-05-25 20:35 | disposition home or self-care (01) ==
LOC: EMR 18:34
PROVIDERS: EMERGENCY PHYSICIAN Emergency Medicine; FAMILY PHYSICIAN Physician Assistant
DX: S51.012A Laceration without foreign body of left elbow, initial encounter (principal); S51.812A Laceration without foreign body of left forearm, initial encounter; W18.09XA Striking against other object with subsequent fall, initial encounter; E11.9 Type 2 diabetes mellitus without complications; I11.0 Hypertensive heart disease with heart failure; I50.9 Heart failure, unspecified; I25.10 Atherosclerotic heart disease of native coronary artery without angina pectoris; J44.9 Chronic obstructive pulmonary disease, unspecified; I48.91 Unspecified atrial fibrillation; Z79.01 Long term (current) use of anticoagulants; Z87.891 Personal history of nicotine dependence; Z23 Encounter for immunization
CPT/HCPCS: 90471; 99282; 90715

== ENCOUNTER → 2024-07-29 15:11 | Outpatient (REF) | payer MEDICARE, OTHER, SELFPAY ==
[2024-07-29 15:46] LABS: % Basophils 0.5 % (0-2); % Eosinophils 0.9 % (0-6); % Immature Granulocytes 0.5 % (0-0.5); % Monocytes 11.1 % (1.7-9.3); Absolute Eosinophils 0.1 10^3/uL (0-0.7); Absolute Monocytes 0.7 10^3/uL (0.1-0.6); Absolute Neutrophils 4.6 10^3/uL (1.4-6.5); Hematocrit 41.4 % (39.0-52.0); Hemoglobin 13.8 g/dL (13.0-18.0); Mean Corp Hgb Conc. 33.3 g/dL (33.0-37.0); Mean Corpuscular Hgb 28.3 pg (27.0-31.0); Nucleated Red Blood Cells % 0 % (-); Platelet Count 188 10^3/uL (130-400); Red Blood Cell Count 4.87 10^6/uL (4.70-6.10); Red Cell Dist. Width 14.7 % (11.5-14.5); White Blood Cell Count 6.5 10^3/uL (4.8-10.8)
[2024-07-29 16:09] LABS: ALT (SGPT) 35 U/L (0-50); AST (SGOT) 35 U/L (17-59); Albumin 4.2 g/dl (3.5-5.0); Alkaline Phosphatase 72 U/L (38-126); Blood Urea Nitrogen 21 mg/dl (9-20); Calcium 9.5 mg/dl (8.4-10.2); Carbon Dioxide 26 mmol/L (22-30); Chloride 107 mmol/L (98-107); Glucose 118 mg/dl (70-99); Potassium 4.8 mmol/L (3.5-5.1); Sodium 143 mmol/L (135-145); Total Bilirubin 0.5 mg/dl (0.2-1.3); Total Protein 7.2 g/dl (6.3-8.2); eGFR > 60.00
[2024-07-29 17:16] LABS: Free T4 0.63 ng/dl (0.78-2.19)
== END ==
LOC: REG 15:11
PROVIDERS: ATTENDING PHYSICIAN Internal Medicine Hematology & Oncology; FAMILY PHYSICIAN Physician Assistant
DX: C79.9 Secondary malignant neoplasm of unspecified site (principal); R59.9 Enlarged lymph nodes, unspecified; L02.214 Cutaneous abscess of groin; R88.8 Abnormal findings in other body fluids and substances; R97.0 Elevated carcinoembryonic antigen [CEA]; C44.82 Squamous cell carcinoma of overlapping sites of skin
CPT/HCPCS: 36415; 80053; 84439; 84443; 85025

== ENCOUNTER → 2024-08-20 11:39 | Outpatient (REF) | payer MEDICARE, OTHER, SELFPAY ==
[2024-08-20 12:37] LABS: % Basophils 0.6 % (0-2); % Eosinophils 1.4 % (0-6); % Immature Granulocytes 0.9 % (0-0.5); % Lymphocytes 16.9 % (20.5-51.1); % Monocytes 10.7 % (1.7-9.3); % Neutrophils 69.5 % (42.2-75.2); Absolute Eosinophils 0.1 10^3/uL (0-0.7); Absolute Immature Granulocytes 0.1 10^3/uL (0-0.05); Absolute Lymphocytes 1.1 10^3/uL (1.2-3.4); Absolute Monocytes 0.7 10^3/uL (0.1-0.6); Absolute Neutrophils 4.6 10^3/uL (1.4-6.5); Hematocrit 42.6 % (39.0-52.0); Hemoglobin 14.1 g/dL (13.0-18.0); Mean Corp Hgb Conc. 33.1 g/dL (33.0-37.0); Mean Corpuscular Hgb 27.9 pg (27.0-31.0); Mean Corpuscular Volume 84.4 fL (80.0-94.0); Mean Platelet Volume 9.3 fL (7.4-10.4); Nucleated Red Blood Cells % 0 % (-); Platelet Count 184 10^3/uL (130-400); Red Blood Cell Count 5.05 10^6/uL (4.70-6.10); Red Cell Dist. Width 15.9 % (11.5-14.5); White Blood Cell Count 6.6 10^3/uL (4.8-10.8)
[2024-08-20 12:42] LABS: ALT (SGPT) 34 U/L (0-50); AST (SGOT) 32 U/L (17-59); Albumin 4.3 g/dl (3.5-5.0); Alkaline Phosphatase 58 U/L (38-126); Blood Urea Nitrogen 24 mg/dl (9-20); Calcium 9.4 mg/dl (8.4-10.2); Carbon Dioxide 25 mmol/L (22-30); Chloride 103 mmol/L (98-107); Glucose 162 mg/dl (70-99); Magnesium 1.7 mg/dl (1.6-2.3); Potassium 4.8 mmol/L (3.5-5.1); Sodium 141 mmol/L (135-145); Total Bilirubin 0.6 mg/dl (0.2-1.3); Total Protein 7.3 g/dl (6.3-8.2); eGFR > 60.00
== END ==
LOC: REG 11:39
PROVIDERS: ATTENDING PHYSICIAN Internal Medicine Hematology & Oncology; FAMILY PHYSICIAN Physician Assistant
DX: C79.9 Secondary malignant neoplasm of unspecified site (principal); R59.9 Enlarged lymph nodes, unspecified; L02.214 Cutaneous abscess of groin; R88.8 Abnormal findings in other body fluids and substances; R97.0 Elevated carcinoembryonic antigen [CEA]; C44.82 Squamous cell carcinoma of overlapping sites of skin
CPT/HCPCS: 36415; 80053; 83735; 85025

== ENCOUNTER → 2024-08-22 14:00 | Outpatient (REF) | payer MEDICARE, OTHER, SELFPAY ==
[2024-08-22 15:28] LABS: Free T4 0.66 ng/dl (0.78-2.19)
== END ==
LOC: OIDL 14:00
PROVIDERS: ATTENDING PHYSICIAN Nurse Practitioner Primary Care
DX: C79.9 Secondary malignant neoplasm of unspecified site (principal); R59.9 Enlarged lymph nodes, unspecified; L02.214 Cutaneous abscess of groin; R88.8 Abnormal findings in other body fluids and substances; R97.0 Elevated carcinoembryonic antigen [CEA]; C44.82 Squamous cell carcinoma of overlapping sites of skin
CPT/HCPCS: 84439; 84443

== ENCOUNTER → 2024-09-16 16:56 | Outpatient (REF) | payer MEDICARE, OTHER, SELFPAY ==
[2024-09-16 17:37] LABS: % Basophils 0.5 % (0-2); % Eosinophils 1.1 % (0-6); % Immature Granulocytes 0.4 % (0-0.5); % Lymphocytes 17.8 % (20.5-51.1); % Monocytes 11.4 % (1.7-9.3); % Neutrophils 68.8 % (42.2-75.2); Absolute Eosinophils 0.1 10^3/uL (0-0.7); Absolute Monocytes 0.7 10^3/uL (0.1-0.6); Absolute Neutrophils 3.9 10^3/uL (1.4-6.5); Hematocrit 39.4 % (39.0-52.0); Hemoglobin 13.1 g/dL (13.0-18.0); Mean Corp Hgb Conc. 33.2 g/dL (33.0-37.0); Mean Corpuscular Hgb 27.6 pg (27.0-31.0); Mean Corpuscular Volume 83.1 fL (80.0-94.0); Mean Platelet Volume 8.9 fL (7.4-10.4); Nucleated Red Blood Cells % 0 % (-); Platelet Count 189 10^3/uL (130-400); Red Blood Cell Count 4.74 10^6/uL (4.70-6.10); Red Cell Dist. Width 16.7 % (11.5-14.5); White Blood Cell Count 5.7 10^3/uL (4.8-10.8)
[2024-09-16 18:06] LABS: ALT (SGPT) 29 U/L (0-50); AST (SGOT) 29 U/L (17-59); Albumin 4.2 g/dl (3.5-5.0); Alkaline Phosphatase 55 U/L (38-126); Blood Urea Nitrogen 23 mg/dl (9-20); Calcium 9.2 mg/dl (8.4-10.2); Carbon Dioxide 23 mmol/L (22-30); Chloride 110 mmol/L (98-107); Glucose 137 mg/dl (70-99); Sodium 142 mmol/L (135-145); Total Bilirubin 0.6 mg/dl (0.2-1.3); eGFR > 60.00
== END ==
LOC: REG 16:56
PROVIDERS: ATTENDING PHYSICIAN Internal Medicine Hematology & Oncology; FAMILY PHYSICIAN Physician Assistant
DX: C79.9 Secondary malignant neoplasm of unspecified site (principal); R59.9 Enlarged lymph nodes, unspecified; L02.214 Cutaneous abscess of groin; R88.8 Abnormal findings in other body fluids and substances; R97.0 Elevated carcinoembryonic antigen [CEA]; C44.82 Squamous cell carcinoma of overlapping sites of skin
CPT/HCPCS: 36415; 80053; 84443; 85025

== ENCOUNTER → 2024-10-10 12:44 | Outpatient (REF) | payer MEDICARE, OTHER, SELFPAY ==
[2024-10-10 13:35] LABS: % Basophils 0.3 % (0-2); % Eosinophils 1.2 % (0-6); % Immature Granulocytes 0.4 % (0-0.5); % Lymphocytes 17.6 % (20.5-51.1); % Monocytes 10.7 % (1.7-9.3); % Neutrophils 69.8 % (42.2-75.2); Absolute Eosinophils 0.1 10^3/uL (0-0.7); Absolute Lymphocytes 1.2 10^3/uL (1.2-3.4); Absolute Monocytes 0.7 10^3/uL (0.1-0.6); Absolute Neutrophils 4.7 10^3/uL (1.4-6.5); Hematocrit 39.6 % (39.0-52.0); Mean Corp Hgb Conc. 32.8 g/dL (33.0-37.0); Mean Corpuscular Hgb 26.9 pg (27.0-31.0); Mean Platelet Volume 9.3 fL (7.4-10.4); Nucleated Red Blood Cells % 0 % (-); Platelet Count 176 10^3/uL (130-400); Red Blood Cell Count 4.83 10^6/uL (4.70-6.10); Red Cell Dist. Width 16.8 % (11.5-14.5); White Blood Cell Count 6.7 10^3/uL (4.8-10.8)
[2024-10-10 14:28] LABS: ALT (SGPT) 23 U/L (0-50); AST (SGOT) 28 U/L (17-59); Albumin 4.3 g/dl (3.5-5.0); Alkaline Phosphatase 52 U/L (38-126); Blood Urea Nitrogen 21 mg/dl (9-20); Calcium 9.4 mg/dl (8.4-10.2); Carbon Dioxide 20 mmol/L (22-30); Chloride 109 mmol/L (98-107); Glucose 102 mg/dl (70-99); Magnesium 1.6 mg/dl (1.6-2.3); Potassium 4.8 mmol/L (3.5-5.1); Sodium 143 mmol/L (135-145); Total Bilirubin 0.6 mg/dl (0.2-1.3); Total Protein 6.9 g/dl (6.3-8.2); eGFR > 60.00
== END ==
LOC: REG 12:44
PROVIDERS: ATTENDING PHYSICIAN Internal Medicine Hematology & Oncology; FAMILY PHYSICIAN Physician Assistant
DX: C79.9 Secondary malignant neoplasm of unspecified site (principal); R59.9 Enlarged lymph nodes, unspecified; L02.214 Cutaneous abscess of groin; R88.8 Abnormal findings in other body fluids and substances; R97.0 Elevated carcinoembryonic antigen [CEA]; C44.82 Squamous cell carcinoma of overlapping sites of skin
CPT/HCPCS: 36415; 80053; 83735; 85025

== ENCOUNTER 2024-10-19 14:22 | Inpatient (IN) | payer MEDICARE, OTHER, SELFPAY ==
--- NOTE | 2024-10-19 09:46 | ED.GENMED ---
History of Present Illness
General
Chief Complaint: Breathing Problem
Source: patient, spouse and ambulance crew (Patient given oxygen en route)
Exam Limitations: none
Time Seen by Provider: 10/19/24 09:30
Nursing documentation reviewed up to this point in time: agreed with
History of Present Illness
History of Present Illness:
69-year-old male with shortness of breath since 5 AM when he was walking to the bathroom. He has a history of COPD and emphysema, as well as atrial fibrillation. He denies any fevers.
Past History
Past History
ED Past Medical History: Arrthythmia (Atrial fibrillation), CAD, CHF, COPD, HTN, NIDDM and [place]
ED Past Surgical History: Cardiac (Cardioversion)
Social History
Tobacco: Former smoker
Alcohol: None
Drug: None
Personal:
Living: with family
Family History
Family History: Other (Noncontributory)
Review of Systems
Review of Systems
Allergies reviewed?: Yes
All Other Systems: Not applicable
Constitutional: Reports no symptoms
EENT: Reports no symptoms
Respiratory: Reports cough and trouble breathing
Cardiac: Reports no symptoms
ABD/GI: Reports no symptoms
: Reports no symptoms
Musculoskeletal: Reports no symptoms
Skin: Reports no symptoms
Neurological: Reports no symptoms
Endocrine: Reports no symptoms
Hematologic/Lymphatic: Reports no symptoms
Psychiatric: Reports no symptoms
Phy Exam
Physical Exam
Physical Exam:
Physical Exam
General: Moderate respiratory distress, afebrile
Neck: supple. no meningeal signs. normal posterior pharynx
Heart: s1/s2 regular rate and rhythm, no murmur. equal radial
pulses.
HEENT: Pupils equal round reactive to light, EOMI
Lungs: Moderate respiratory distress. Decreased breath sounds and wheezing bilaterally
Abdomen: normal bowel sounds. not tender. no CVAT
Neuro: alert and oriented. no focal neurological deficits cranial nerves II through XII intact
Skin: no rash
Psychiatric: well kept. interactive and cooperative
Extremities: Bilateral tibial edema. no calf tenderness. negative homans. good distal pulses
Scores
Heart Failure Risk
Heart Failure Risk Score: Yes
History of Stroke or TIA: No
History of intubation for respiratory distress: No
Heart rate on ED arrival >/= 110: No
SaO2 <90% on arrival on room air: Yes
HR >/=110 during 3min walk test (or too ill to perform test): Yes
ECG has acute ischemic changes: No
Urea >/=12mmol/L (BUN 33.6mg/dL): No
Serum CO2>/=35mmol/L: No
Troponin I or T elevated to [place] Level (0.4mg/dL): No
NT-proBNP >/=5,000ng/L (5,000pg/ml): No
HF Risk Score: 3
Admission Status: HIGH RISK 15.9% Consider SNF treatment or admission to hospital
Course
Orders/Labs/Results
Orders:
Orders
10/19/24
Electrocardiogram (*1) Stat
Comment: ALREADY DONE
10/19/24 09:43
Cardiac Monitoring- Treatment ONCE
IV Insert/Care/Rem.- Treatment PRN
Dexamethasone Sod Phosphate [Decadron] 10 mg IV NOW STA
Ipratropium/Albuterol Sulfate [Duoneb] 3 ml INH R NOW STA
O2 Therapy [RESP] Stat
Nasal Cannula Liter Flow: 2 LPM
Titrate/Wean O2 to maintain O2 sat greater than (%): 92
Pulse Ox/cont/shift [RESP] Stat
Quantity: 1
10/19/24 09:44
CR Chest Portable - 1 View Urgent
Comment:
Reason For Exam: short of breath
Reason Study Needs to be Portable: Patient Unstable
10/19/24 10:31
Complete Blood Count/With Diff Urgent
Comprehensive Metabolic Panel Urgent
Lactic Acid Q4H
Comment: CANCEL 2nd LACTIC ACID IF 1st LACTIC ACID IS LESS THAN 2
NT-proBNP Urgent
Prothrombin Time Urgent
Troponin I Urgent
Abnormal Lab Results
10/19/24
10:31
MCHC 32.4 L g/dL
(33.0-37.0)
RDW 16.6 H %
(11.5-14.5)
Absolute Lymphs (auto) 0.5 L 10^3/uL
(1.2-3.4)
Absolute Monos (auto) 0.7 H 10^3/uL
(0.1-0.6)
Neutrophils % 82.5 H %
(42.2-75.2)
Lymphocytes % 6.4 L %
(20.5-51.1)
Monocytes % 9.5 H %
(1.7-9.3)
PT 36.2 H Sec
(11.4-14.6)
Chloride 108 H mmol/L
(98-107)
Glucose 141 H mg/dl
(70-99)
10/19/24 10:31
10/19/24 10:31
Vital Signs
Initial and Last Documented VS:
Initial Vital Signs
Temp
98.7 F
10/19/24 09:25
Last Documented Vital Signs
Temp Pulse Resp Pulse Ox
98.7 F 62 14 96
10/19/24 09:25 10/19/24 12:00 10/19/24 12:00 10/19/24 12:30
MDM/Problems Addressed
Differential Diagnosis Includes:
Pneumonia, CHF, COPD exacerbation
MDM/Problems Addressed:
69-year-old male with COPD exacerbation. Mild, CHF, suspect underlying cause is his feet. No signs of pneumonia or pneumothorax. Some improvement with Decadron and DuoNeb. Admit to hospitalist.
Chronic conditions affecting care: Cardiomyopathy and COPD
Acute Exacerbation and/or Progression of Chronic Illness: Cardiomyopathy and COPD
*Radiology
Radiology exam reviewed: radiology read reviewed (Chest x-ray mild pulmonary edema)
*Pulse Oximetry
SaO2: 98
Nasal Cannula flow liters per minute: 4
Oxygen Mode of Delivery: Midflow Nasal Cannula (6 L)
Patient hypoxic: no
*EKG
Interpreted by ED Provider?: Yes
EKG Intrepretation Date: 10/19/24
EKG Intrepretation Time: 09:29
Interpretation: abnormal
Comparison EKG: changes noted
Heart Rate: 72
Rate: normal
Rhythm: sinus
[place]: normal axis
Interval: normal interval
QRS Pattern: normal QRS
Ischemia: no ischemia
*Flour Mixer Interpretation
Rate: normal
Interpretation: normal
Heart Rate: 74
Rhythm: sinus
*Critical Care Note
Total Time (30-74mins, 75-104mins- exclusive of procedures): Not Applicable
Data Reviewed
Review of Other/Old Records Reveals: Discharge Summary (Admission for COPD in January along with pneumonia and sepsis)
Source: records
Further Testing Considered But Not Given:
CT chest not indicated
Patient Management
Social determinants of health affecting care: Living situation and Strong social support
Discussion with other providers: Hospitalist
Escalation/DeEscalation of care consider admission/obs:
Admit indicated
ED Attending Note
-
Portions of this chart may have been created with voice recognition software.� Occasional wrong word or��sound alike� substitutions may have occurred due to the inherent limitations of voice recognition software.
Discharge Plan
Departure
Patient Disposition: Admit
Date of Disposition: 10/19/24
Time of Disposition: 11:36
Admit to: Telemetry
Presentation/result/management discussed w/ accepting MD/DO: Hospitalist
Patient with high blood pressure during this ER visit?: Yes
Condition: Fair
Discharge Problem:
Acute exacerbation of chronic obstructive pulmonary disease, Acute exacerbation of CHF (congestive heart failure)
Prescriptions:
No Action
amiodarone [Pacerone] 200 MG tablet
200 mg PO DAILY
glipizide 10 mg Tablet Extended Release 24hr
10 mg PO DAILY Qty: 0
dapagliflozin propanediol [Farxiga] 10 mg Tablet
10 mg PO DAILY Qty: 0
metoprolol succinate 50 MG tablet extended release 24 hr
50 mg PO HS
metoprolol succinate 25 mg Tablet Extended Release 24 Hr
25 mg PO DAILY
pantoprazole 40 mg Tablet,Delayed Release (Dr/Ec)
40 mg PO DAILY Qty: 30 0RF
levothyroxine 25 mcg Tablet
50 mcg PO DAILY
umeclidinium-vilanterol [Anoro Ellipta] 62.5-25 mcg/actuation Blister With Device
1 inh INHALATION R DAILY
metformin 1,000 mg tablet
1,000 mg PO BID
warfarin 5 mg Tablet
5 mg PO SUMOTUTHSA
Patient Comments:
10/19/2024, pt. takes around bedtime.
warfarin 5 mg Tablet
2.5 mg PO WEFR
Patient Comments:
10/19/2024, pt. takes around bedtime.
nystatin-triamcinolone 100,000-0.1 unit/g-% cream
1 applic TOPICAL HS
nystatin 100,000 unit/gram powder
1 applic TOPICAL HS
albuterol sulfate [ProAir HFA] 90 mcg/actuation Hfa Aerosol Inhaler
2 puff INHALATION R Q6HPRN PRN (Reason: sob)
ketoconazole 2 % Cream
1 applic TOPICAL DAILYPRN PRN (Reason: apply to groin)
atorvastatin 80 MG tablet
80 mg PO HS
Referrals:
Jil Trotter PA [Family Provider, Family Practice]
Interventions
Interventions:
*Risk Screen - Suicide Last Done: 10/19/24 09:35
*General Assessment Last Done: 10/19/24 09:33
*Neglect/Abuse Screening Last Done: 10/19/24 09:35
*ED- Fall Risk Assessment Last Done: 10/19/24 09:33
*ED COVID-19 Vaccine History Last Done: 10/19/24 09:33
ED- Cardiac Assessment Last Done: 10/19/24 09:26
ED- Pulmonary Assessment Last Done: 10/19/24 09:26
Discharge Date and Time
Print Language: JORDANIAN
[2024-10-19] MEDS: DECADRON 10 MG IV (10:14)
[2024-10-19] MEDS: DUONEB 3 ML INH ×3 (10:16→19:52)
[2024-10-19 10:54] LABS: Hematocrit 41.4 % (39.0-52.0); Hemoglobin 13.4 g/dL (13.0-18.0); Mean Corp Hgb Conc. 32.4 g/dL (33.0-37.0); Mean Corpuscular Volume 84.1 fL (80.0-94.0); Nucleated Red Blood Cells % 0 % (-); Platelet Count 167 10^3/uL (130-400); Red Cell Dist. Width 16.6 % (11.5-14.5)
[2024-10-19 10:55] LABS: INR 3.61; PT 36.2 Sec (11.4-14.6)
[2024-10-19 11:12] LABS: Troponin I < 0.012 ng/ml
[2024-10-19 11:20] LABS: ALT (SGPT) 21 U/L (0-50); AST (SGOT) 22 U/L (17-59); Albumin 4.2 g/dl (3.5-5.0); Alkaline Phosphatase 60 U/L (38-126); Blood Urea Nitrogen 15 mg/dl (9-20); Calcium 9.1 mg/dl (8.4-10.2); Carbon Dioxide 27 mmol/L (22-30); Chloride 108 mmol/L (98-107); Glucose 141 mg/dl (70-99); Potassium 5.1 mmol/L (3.5-5.1); Sodium 139 mmol/L (135-145); Total Protein 7.1 g/dl (6.3-8.2); eGFR > 60.00
[2024-10-19] MEDS: LASIX 40 MG IV (13:31)
[2024-10-19 13:32] VITALS: BP 165/84
--- NOTE | 2024-10-19 13:38 | HPS.HSE ---
Family Physician
-
Family Physician: Jil Trotter
Chief Complaint
-
sob
History of Present Illness
69-year-old male with past medical history for A-fib, CAD, CHF, COPD, hypertension, diabetes, [place] with shortness of breath since 5 AM when he was walking to the bathroom, he was able to sleep afterwards but felt the same when he got up at 8am. denied
chest pain. denied fever, chills, cough,congestion. denied PAULSON, dizzy or syncope. denied dysuria or hematuria.
Patient received dexamethasone, Lasix, nebs in ER. Admitted for further management
Medical History
Past Medical History
Past Medical History: Reports Other
Additional Past Medical History:
A-fib: [place], hyperlipidemia, coronary artery disease, type 2 diabetes, ischemic cardiomyopathy, COPD, squamous cell carcinoma, hemorrhoids, hypothyroidism, CHF, basal cell carcinoma, obesity
Past Surgical History: Reports Other
Additional Past Surgical History:
Cardiac stent, left knee MCL repair
Bilateral inguinal hernia repair
Social History
Tobacco: Former Smoker
Alcohol: Occasional
Drug: None
Personal:
Living: With Family
Family History
Family History: Not pertinent
Allergies / Home Medications
Allergies reflects when Allergies were last updated in [employer].
Home Medications with original date entered in [employer]
Allergy/Medication List:
Allergies
Allergy/AdvReac Type Severity Reaction Status Date / Time
No Known Allergies Allergy Verified 05/25/24 18:39
Home Medications
amiodarone 200 mg tablet (Pacerone) 200 mg PO DAILY Arrhythmia 01/15/20
dapagliflozin propanediol 10 mg tablet (Farxiga) 10 mg PO DAILY Diabetes ##0 01/15/20
glipizide 10 mg tablet, extended release 24 hr 10 mg PO DAILY Diabetes ##0 01/15/20
metoprolol succinate 50 mg tablet,extended release 24 hr 50 mg PO HS Blood Pressure 10/22/22
metoprolol succinate 25 mg tablet,extended release 24 hr 25 mg PO DAILY Blood Pressure 10/24/22
pantoprazole 40 mg tablet,delayed release 40 mg PO DAILY #30 tabs 09/24/23
levothyroxine 25 mcg tablet 50 mcg PO DAILY Thyroid 01/28/24
umeclidinium 62.5 mcg-vilanterol 25 mcg/actuation powdr for inhalation (Anoro Ellipta) 1 inh inhalation R DAILY Lung/Breathing Issues 01/28/24
albuterol sulfate 90 mcg/actuation aerosol inhaler 2 puff inhalation R Q6HPRN PRN sob 10/19/24
atorvastatin 80 mg tablet 80 mg PO HS 10/19/24
ketoconazole 2 % topical cream 1 applic topical DAILYPRN PRN apply to groin 10/19/24
metformin 1,000 mg tablet 1,000 mg PO BID 10/19/24
nystatin 100,000 unit/gram topical powder 1 applic topical HS apply to groin 10/19/24
nystatin-triamcinolone 100,000 unit/g-0.1 % topical cream 1 applic topical HS apply to groin 10/19/24
warfarin 5 mg tablet 2.5 mg PO WEFR 10/19/24
warfarin 5 mg tablet 5 mg PO SUMOTUTHSA 10/19/24
Review of Systems
-
Constitutional: Reports No Symptoms
EENT: Reports No Symptoms
Respiratory: Reports Trouble Breathing
Cardiac: Reports No Symptoms
Abdomen/GI: Reports No Symptoms
: Reports No Symptoms
Musculoskeletal: Reports Edema (Chronic lower extremities edema)
Skin: Reports No Symptoms
Neurological: Reports No Symptoms
Endocrine: Reports No Symptoms
Hematologic/Lymphatic: Reports No Symptoms
Psych: Reports No Symptoms
Physical Exam
Vital Signs
Vital Signs
Temp Pulse Resp BP Pulse Ox
98.7 F 62 16 165/81 95
10/19/24 09:25 10/19/24 13:31 10/19/24 13:15 10/19/24 13:31 10/19/24 13:00
Physical Exam
General: Well Developed, Well Nourished and No Apparent Distress
HEENT: NormoCephalic, Moist mucous membranes and Atraumatic
Respiratory: Clear
Cardiac: S1/S2 and Regular Rhythm; No Murmur or Rub
GI: Soft, Non Tender, Non Distended and Normal Bowel Sounds; No Organomegaly
Rectal: Deferred by Provider
Musculoskeletal: No Clubbing, No Cyanosis and Other (Lower extremities edema)
Skin: No Rash
Neuro: AO x 3 and Nonfocal/grossly intact
Psych: Calm
Laboratory Results
-
10/19/24 10:31
10/19/24 10:31
Laboratory Results
PT 36.2 Sec (11.4-14.6) H 10/19/24 10:31
INR 3.61 10/19/24 10:31
Lactic Acid Cancelled 10/19/24 13:45
Total Bilirubin 0.9 mg/dl (0.2-1.3) 10/19/24 10:31
AST 22 U/L (17-59) 10/19/24 10:31
ALT 21 U/L (0-50) 10/19/24 10:31
Alkaline Phosphatase 60 U/L (38-126) 10/19/24 10:31
Troponin I < 0.012 ng/ml 10/19/24 10:31
Data Reviewed
-
Diagnostic Radiology: Report Reviewed by me
Lab Data: Labs Reviewed by me
Impression/Plan
-
# Acute hypoxic respiratory failure multifactorial
# COPD exacerbation
- Patient received a dose of dexamethasone in ER
- Steroids continued
- Nebs continued
- Breo continued
-patient requiring 4l of oxygen
-continue supplemental oxygen to keep sat >95
-wean as tolerated
# Possible CHF exacerbation
- BNP 2240
- Chest x-ray with impression of Slightly increased pulmonary vascularity which could represent mild CHF.
- EKG with normal sinus rhythm
- Strict HALEY, daily weight, fluid restriction
#Diabetes mellitus type 2:
-Add insulin sliding scale
-continue Farxiga and glipizide
-Hold metformin
- CHF diet
#Paroxysmal atrial fibrillation
- EKG with normal sinus rhythm
-Amiodarone, metoprolol continued
- Coumadin continued
- Daily PT/INR
# GERD
- PPI continued
# Hyperlipidemia
-Statin continued
# Hypothyroidism
-Levothyroxine continued
#History of SCC left groin and basal cell carcinoma left mandible:
-On Libtayo injection as outpatient, last dose was a week ago
-Follows [facility]
DVT prophylaxis:
Warfarin
--- NOTE | 2024-10-19 14:56 | W.PN.UPDATE ---
Update Note
Progress Note Update
This is an addendum to H&P written by Marcy Bird on 10/19/2024. �Patient seen and examined independently with MANAGER BRAND.
69-year-old male past medical history of CAD, cardiomyopathy, chronic HFrEF EF 40%, COPD, diabetes, hyperlipidemia, atrial fibrillation on Coumadin, hypothyroidism, presenting with shortness of breath. �Chronic edema.
Patient hypoxemic requiring 4 L oxygen. �Cardiac BNP of 2200. �Chest x-ray shows slightly increased pulmonary vascularity.
Wheezing on examination initially.
Patient with acute CHF exacerbation/COPD exacerbation. �40 IV Lasix daily. �Cardiology consulted. �Kuldeep Bland,
--- NOTE | 2024-10-19 15:34 | CM ---
CM reviewed chart and met with pt bedside in ED. Lives with his in 2 story home, 3STE, first floor BR/BA
Independent in ADLs, personal care and ambulation at baseline, still driving. No DME in home.
Hx [facility], no SNF in past
PCP: Jil Trotter
Pharmacy: [facility] [place]
Discharge plan: Anticipate home pending ongoing medical evaluation, watch for needs
[2024-10-19 15:39] VITALS: BMI 42.4
[2024-10-19 15:50] VITALS: BP 165/84
--- NOTE | 2024-10-19 15:50 | PTCARENOTE ---
pt transferred from ER, independent, denies pain, 2l NC maintained, vss, oriented to room and call daniels , will continue to monitor.
[2024-10-19 16:40] LABS: Glucose - Point of Care 248 mg/dl (70-99)
[2024-10-19] MEDS: NOVOLOG FLEXPEN-LOW RESISTANCE SC (18:36)
[2024-10-19] MEDS: DECADRON 4 MG IV (18:36)
--- NOTE | 2024-10-19 19:52 | PTCARENOTE ---
pt reported he took his own Farxiga, metformin and glipizide from home when I went into give him his insulin. informed patient that our policy is for patient's to only take medication that is ordered here and risks. patient refused insulin and
verbalized that his medication regimen has been working for him at home, will continue to monitor.
[2024-10-19 21:41] LABS: Glucose - Point of Care 215 mg/dl (70-99)
[2024-10-19 21:45] VITALS: BP 157/85
[2024-10-19] MEDS: COUMADIN 2.5 MG PO (21:45)
[2024-10-19] MEDS: DESENEX/MITRAZOL/ZEASORB 1 APPLIC TOPICAL (21:48)
[2024-10-19] MEDS: TOPROL XL 50 MG PO (21:50)
[2024-10-19] MEDS: LIPITOR 80 MG PO (21:50)
[2024-10-19] MEDS: MYCOLOG CREAM 1 APPLIC TOPICAL (21:50)
[2024-10-19] MEDS: TUMS CHEWABLE TABLET 200 MG PO (21:51)
[2024-10-19 21:58] VITALS: BMI 42.4
[2024-10-20] VITALS (7 sets, daily range): BP systolic 111–162; BP diastolic 64–90; BMI 42.1
[2024-10-20] MEDS: MORPHINE SULFATE 0.5 MG IV (00:36)
[2024-10-20] MEDS: MYLICON 80 MG PO (00:37)
[2024-10-20] MEDS: DECADRON 4 MG IV ×3 (02:08→17:14)
[2024-10-20] MEDS: SYNTHROID 50 MCG PO (05:45)
[2024-10-20 06:05] LABS: INR 2.69; PT 29.0 Sec (11.4-14.6)
[2024-10-20 06:06] LABS: APTT 46.2 Sec (23.4-35.0)
[2024-10-20 06:14] LABS: HDL Cholesterol 61 mg/dl; LDL Cholesterol, Calculated 59 mg/dl; Magnesium 1.7 mg/dl (1.6-2.3); Very Low Density Lipoprotein 19 mg/dl (0-30)
[2024-10-20] MEDS: DUONEB 3 ML INH ×4 (07:36→19:45)
[2024-10-20] MEDS: STRIVERDI RESPIMAT 2 PUFF INH (07:36)
[2024-10-20 07:47] LABS: Glucose - Point of Care 208 mg/dl (70-99)
[2024-10-20 07:55] LABS: Glycohemoglobin (HgbA1c) 6.5 % (4.0-5.6)
[2024-10-20] MEDS: PROTONIX 40 MG PO (08:08)
[2024-10-20] MEDS: LASIX IV (08:08)
[2024-10-20] MEDS: TOPROL XL 25 MG PO (08:08)
[2024-10-20] MEDS: GLUCOTROL XL (EXTENDED RELEASE) 10 MG PO (08:08)
[2024-10-20] MEDS: FARXIGA 10 MG PO (08:10)
[2024-10-20] MEDS: PACERONE 200 MG PO (08:12)
--- NOTE | 2024-10-20 08:16 | PTCARENOTE ---
patient this morning refusing blood pressure and Lasix, i informed patient that a blood pressure is needed to give his morning medication. Patient refused automatiic blood pressure and agreed to manual. Manual taken and documented patient refused
40mg IV Lasix. patient education given.
[2024-10-20] MEDS: NOVOLOG FLEXPEN-LOW RESISTANCE SC ×2 (10:05→10:24)
--- NOTE | 2024-10-20 10:19 | W.PN.HOSP.TC ---
Addendum entered and electronically signed by Chrissy Lombardo MD 10/20/24 15:40:
I saw and evaluated the patient independently. I reviewed the resident�s note and agree with findings and plan as documented by Dr. Fernandes.
GENERAL: well developed, well nourished, male in no apparent distress--sitting in the chair
HEENT: NC/AT--O2 NC
HEART: regular rate and rhythm, +S1, +S2
LUNGS : clear to auscultation bilaterally
ABDOM: soft, nontender, nondistended, + bowel sounds
EXT: no cyanosis, clubbing-- 1-2+ LE edema bilaterally
NEUROLOGIC: grossly intact
Acute hypoxemic resp failure due to Acute on Chronic Congestive Heart Failure with reduced ejection fraction of 40% exacerbation--proBNP 2240--trying to diurese but pt refusing lasix, refusing SSI, refusing BPs, etc--asked cards to see--pt now
willing to take one dose IV lasix 40 mg today and d/c on 20 mg daily --cont metoprolol--wean O2 to off
COPD (Possible exacerbation)--Patient improving with nebulizer treatment--wean O2--cont nebs and Anoro, Ellipta, Albuterol
Essential Hypertension--Continue home meds
Hypothyroidism--Continue thyroxine
Type 2 DM--SSI--Continue Glipizide, Farxiga--restart metformin
HLD--Continue atorvastatin
Paroxysmal Atrial fibrillation--Continue warfarin--follow INR
GERD--Continue PPI
DVT proph
code status--FULL CODE
Original Note:
Today's Communication/Plan
-
Will work on weaning patient off new supplemental O2 requirement
Assessment / Plan
Assessment / Plan
Assessment
This is a 69 y/o male with pmhx of atrial fibrillation, hypothyroidism, congestive heart failure, COPD, essential hypertension, diabetes who presented to the ED on 10/19/2024 with shortness of breath that began that same morning around 5AM when he got
up to use the bathroom and persisted throughout the day.
Plan
Chronic Congestive Heart Failure with reduced ejection fraction of 40% (Possible acute exacerbation)
-BNP on admission 2239, Chest X-ray in ED revealed increased pulmonary vascularity markings that could be indicative of an acute CHF exacerbation.
-Continue metoporol, IV Lasix
COPD (Possible exacerbation)
-Patient improving with nebulizer treatment
-O2 saturation 100% on 4L, will work on reducing supplemental O2 requirement.
-Continue nebulizer treatment PRN for shortness of breath
-Continue home meds (Anoro Ellipta, Albuterol )
Essential Hypertension
-Continue home meds
Hypothyroidism
-Continue home meds (levothyroxine)
DM2
-Started on insulin yesterday
-Continue Glipizide, Farxiga
-Holding metformin
HLD
-Continue home meds (atorvastatin)
Paraxosyml Atrial fibrillation
-Continue home meds (Warfarin)
GERD
-Continue home meds (Pantoprazole)
Anticipated Discharge: 24 - 48 hours
Subjective/Interval History
-
Date of Service: October 20, 2024
Doing well. When I saw him he was receiving nebulizer treatments. He states that the first nebulizer treatment administered in the ED helped him a lot and he does not feel significantly short of breath compared to yesterday. He is still on 4L of O2,
which is a new requirement for him as he does not use supplemental O2 at home and has never need to in the past. He has never been hospitalized for COPD exacerbations or HF exacerbations. He does report he smoked for 3ppd 47 years.
Objective Data
-
Labs:
Laboratory Results
10/20/24
05:09
PT 29.0 H
INR 2.69
APTT 46.2 H
Vital Signs:
Vital Signs
Temp Pulse Resp BP Pulse Ox
98.6 F 84 14 150/76 100
10/20/24 07:44 10/20/24 08:08 10/20/24 07:44 10/20/24 08:12 10/20/24 07:44
I&O
10/19/24 10/20/24 10/21/24
06:59 06:59 06:59
Intake Total 960 / 960
Output Total 175 / 175
Balance 785 / 785
Review of Systems
-
History Source: Patient
Constitutional: Reports No Symptoms
Respiratory: Reports Trouble Breathing (Improved from yesterday)
Cardiac: Reports No Symptoms
Abdomen/GI: Reports No Symptoms
Skin: Reports No Symptoms
Physical Exam
-
General: Well Developed, No Apparent Distress, Comfortable and Morbidly Obese
HEENT: Normocephalic and Atraumatic
Respiratory: Clear to Auscultation
Cardiac: Regular Rhythm, S1/S2 and Tachycardic
Musculoskeletal: Edema, Right Lower Extrem and Edema, Left Lower Extrem
Skin: Warm and Dry
Neuro: Awake, Alert and Oriented
Psych: Calm
--- NOTE | 2024-10-20 11:25 | PTCARENOTE ---
Patient refused morning insulin with a glucose of 208 before eating breakfast. Patient education on sliding scale and insulin since patients metformin is being held. Patient verbalized to understanding and no inulin administered.
[2024-10-20 12:39] LABS: Glucose - Point of Care 331 mg/dl (70-99)
--- NOTE | 2024-10-20 13:19 | CON.CAR ---
Addendum entered and electronically signed by Nick Li MD 10/20/24 14:08:
Patient seen and examined in collaboration with DIRECTOR OF LOGISTICS; agree with below.
- 69-year-old male (with known partial medical noncompliance) with CAD, chronic HFmrEF (EF 40%), hypertension, hyperlipidemia, COPD, and morbid obesity presenting with acute on chronic CHF/COPD exacerbation.
- The patient has chronically declined Lasix in the outpatient setting.
- The patient after some discussion now appears to be agreeable to take low-dose Lasix at home.
- Patient is willing to get a dose of Lasix 40 mg IV today as ordered.
- Can transition patient to Lasix 20 mg PO daily tomorrow, which the patient will now be willing to take at home.
- Outpatient follow-up with Cardiology.
Original Note:
Consultation
Consultation Request
Date/Time Consultation Requested: 10/20/2024 1230
Date/Time Consultation Performed: 10/20/2024 1300
Requesting Provider: Dr. Lombardo
Performing Provider: Dr. Li
Reason for Consultation: CHF/SOB
Medical History
-
Chief Complaint: SOB
History of Present Illness:
Primary Marketing Content Specialist: Dr. Bhatia
69-year-old with history of CAD, heart failure preserved ejection fraction, hypertension, COPD who presented to the emergency room on 11-11 with worsening shortness of breath when he woke and was up walking to the bathroom. He denies chest pain
without event. He was having trouble catching his breath. proBNP on admission was 2240.Chest x-ray with increased pulmonary vascularity with mild CHF.He is currently being treated for COPD exacerbation as well currently requiring oxygen. He feels
his breathing has improved with nebulizer treatment. Outpatient cardiology notes indicate that patient has been noncompliant with medical therapy and recommendations in the past. He has not been interested in taking long-term diuretics as an
outpatient as it causes him to go to the bathroom too frequently. He does note that he has increase in his lower extremity edema and some trouble getting his shoes on which usually is an indication to him that he is having some fluid retention.
Past Medical History
Past Medical History: Other (Heart failure preserved ejection fraction, PAF, hypertension, COPD, hypothyroidism, diabetes, hyperlipidemia, GERD)
Past Surgical History: Other (Left knee MCL repair 2000, bilateral inguinal hernia repair at age of 3,)
Social History
Tobacco: Former Smoker
Alcohol: Occasional
Personal:
Living: With Family
Family History
Family History: Reviewed & Not Pertinent
Allergies / Home Medications
Allergy/AdvReac Type Severity Reaction Status Date / Time
No Known Allergies Allergy Verified 10/19/24 16:08
�Medication �Instructions �Recorded �Confirmed �Type
amiodarone 200 mg tablet (Pacerone) 200 mg PO DAILY Arrhythmia 01/15/20 10/19/24 History
dapagliflozin propanediol 10 mg 10 mg PO DAILY Diabetes ##0 01/15/20 10/19/24 History
tablet (Farxiga)
glipizide 10 mg tablet, extended 10 mg PO DAILY Diabetes ##0 01/15/20 10/19/24 History
release 24 hr
metoprolol succinate 50 mg 50 mg PO HS Blood Pressure 10/22/22 10/19/24 History
tablet,extended release 24 hr
metoprolol succinate 25 mg 25 mg PO DAILY Blood Pressure 10/24/22 10/19/24 History
tablet,extended release 24 hr
pantoprazole 40 mg tablet,delayed 40 mg PO DAILY #30 tabs 09/24/23 10/19/24 Rx
release
levothyroxine 25 mcg tablet 50 mcg PO DAILY Thyroid 01/28/24 10/19/24 History
umeclidinium 62.5 mcg-vilanterol 1 inh inhalation R DAILY 01/28/24 10/19/24 History
25 mcg/actuation powdr for Lung/Breathing Issues
inhalation (Anoro Ellipta)
albuterol sulfate 90 mcg/actuation 2 puff inhalation R Q6HPRN PRN sob 10/19/24 10/19/24 History
aerosol inhaler
atorvastatin 80 mg tablet 80 mg PO HS cholesterol 10/19/24 10/19/24 History
ketoconazole 2 % topical cream 1 applic topical DAILYPRN PRN 10/19/24 10/19/24 History
apply to groin
metformin 1,000 mg tablet 1,000 mg PO BID Diabetes 10/19/24 10/19/24 History
nystatin 100,000 unit/gram topical 1 applic topical HS apply to groin 10/19/24 10/19/24 History
powder
nystatin-triamcinolone 100,000 1 applic topical HS apply to groin 10/19/24 10/19/24 History
unit/g-0.1 % topical cream
warfarin 5 mg tablet 2.5 mg PO WEFR Prevent Blood 10/19/24 10/19/24 History
Clot/AFib
warfarin 5 mg tablet 5 mg PO SUMOTUTHSA Prevent Blood 10/19/24 10/19/24 History
Clot/AFib
Review of Systems
-
History Source: Patient
Constitutional: Weight Gain
EENT: No Symptoms
Respiratory: Trouble Breathing
Cardiac: No Symptoms and Other (Bilateral lower extremity edema right greater than left)
Abdomen/GI: Other (Reflux)
: No Symptoms
Musculoskeletal: No Symptoms
Skin: No Symptoms
Neurological: No Symptoms
Physical Exam
Vital Signs
Temp Pulse Resp BP Pulse Ox
98.6 F 69 18 150/76 100
10/20/24 07:44 10/20/24 11:31 10/20/24 11:31 10/20/24 08:12 10/20/24 08:00
Lab Results
10/19/24 10:31
10/19/24 10:31
Troponin I < 0.012 ng/ml 10/19/24 10:31
Ssg-Y-Kldvhgmcyhk Pept 2240 pg/ml 10/19/24 10:31
Physical Exam
General: Well Developed, Well Nourished and No Apparent Distress
HEENT: Normocephalic and Moist Mucous Membranes
Respiratory: Crackles
Cardiac: S1/S2, Regular Rhythm and Peripheral Edema (mod bilat LE edema R >L)
GI: Soft, Non Distended and Normal Bowel Sounds
Musculoskeletal: Edema (mod bilat LE edema R>L)
Skin: Warm and Dry
Neuro: AO x 3
Psych: Calm
Impression / Plan
-
Acute on chronic HFmrEF:
EF 40% on echo 06/2023. In the past EF 10-15% then 40%-then normal 06/2023 EF 40
Pt has declined GDMT as OP and continues to decline
CXR and elevated BNP consistent with volume overload. IV lasix given in ER. Initially pt declined today as well, but has reconsidered and willing to take lasix while here.
Fluid/sodium restrictions
Last OV weight 04/08/24 in our office 299, here 309lbs
PAF:
In NSR on amio
CHADSVASC 5-chronic warfarin
COPD:
follows with pulmonary
now requiring O2 here
tx per primary team.
HTN:
BP's elevated here . Reassess after diuresis. Pt has declined titration of medications as OP.
CAD:
Prior PCI-MURPHY LAD into D3 overlapping stents 2016, RCA diffuse disease medical therapy.
stable, medical therapy as tolerated and compliant with.
Hyperlipidemia:
chronic statin
Data Reviewed
-
EKG: Tracing Personally Visualized and interpreted (EKG 10/19/24 NSR 72 bpm, poor R wave progression)
Radiology: Report Reviewed by me ( CXR 10/19/24:Slightly increased pulmonary vascularity which could represent mild CHF.)
Medical Tests (Nuc Med, Echo etc): Report Reviewed by me (Echo 09/21/23 Mild to moderately reduced left ventricular systolic function. Anterior, anteroseptal and apical hypokinesis. Left ventricular ejection fraction is 40% by visual estimate.
Compared to prior study of 01/29/2021 the LVEF was felt to be normal.)
Labs: Labs Reviewed by me, Discussed with Physician and Discussed with Patient
Old Records: Reviewed
Critical Care Time (in minutes): OP cardiology notes reviewed as above.
[2024-10-20] MEDS: LASIX 40 MG IV (13:27)
[2024-10-20] MEDS: NOVOLOG FLEXPEN-LOW RESISTANCE 4 UNITS SC ×2 (13:27→17:46)
--- NOTE | 2024-10-20 15:20 | CM ---
Patient seen at bedside with and cardiac PA present on . Patient may need home O2; pending assessment. CM will continue to follow for discharge planning needs.
Plan;home with VN vs home with no needs watch for possible home O2 needs.
[2024-10-20 16:36] LABS: Glucose - Point of Care 305 mg/dl (70-99)
[2024-10-20] MEDS: COUMADIN 5 MG PO (17:12)
[2024-10-20 20:08] LABS: Hepatitis C Antibody Negative (Negative)
[2024-10-20] MEDS: DESENEX/MITRAZOL/ZEASORB 1 APPLIC TOPICAL (21:34)
[2024-10-20] MEDS: MYCOLOG CREAM 1 APPLIC TOPICAL (21:34)
[2024-10-20] MEDS: LIPITOR 80 MG PO (21:34)
[2024-10-20] MEDS: TOPROL XL 50 MG PO (21:34)
[2024-10-20 21:35] LABS: Glucose - Point of Care 340 mg/dl (70-99)
[2024-10-20] MEDS: NOVOLOG FLEXPEN 7 UNITS SC (21:50)
[2024-10-20 23:52] LABS: Glucose - Point of Care 312 mg/dl (70-99)
[2024-10-21] MEDS: DECADRON 4 MG IV ×2 (02:29→09:36)
[2024-10-21 03:40] VITALS: BP 167/80
--- NOTE | 2024-10-21 03:55 | PTCARENOTE ---
Pt. HS blood glucose 340. SHIRLEY Díaz notified. New order rec'd for 7 units Novolog stat. See MAR. Blood glucose rechecked 2 hours after novolog administration and resulted at 312. Patient eating bhavya bar brought in from . Patient
refused any further insulin. Education provided. Call daniels within reach. Plan of care ongoing.
[2024-10-21] MEDS: SYNTHROID 50 MCG PO (05:27)
[2024-10-21 05:40] LABS: Hematocrit 35.7 % (39.0-52.0); Hemoglobin 11.8 g/dL (13.0-18.0); Mean Corp Hgb Conc. 33.1 g/dL (33.0-37.0); Mean Corpuscular Volume 81.5 fL (80.0-94.0); Platelet Count 181 10^3/uL (130-400); Red Cell Dist. Width 17.0 % (11.5-14.5)
[2024-10-21 05:52] LABS: APTT 39.9 Sec (23.4-35.0); INR 3.07; PT 32.0 Sec (11.4-14.6)
[2024-10-21 06:02] LABS: Blood Urea Nitrogen 31 mg/dl (9-20); Calcium 9.0 mg/dl (8.4-10.2); Carbon Dioxide 25 mmol/L (22-30); Chloride 106 mmol/L (98-107); Estimated Creatinine Clearance 100 ml/min; Glucose 251 mg/dl (70-99); Magnesium 2.2 mg/dl (1.6-2.3); Potassium 4.3 mmol/L (3.5-5.1); Sodium 140 mmol/L (135-145); eGFR > 60.00
--- NOTE | 2024-10-21 07:18 | W.PN.HOSP.TC ---
Addendum entered and electronically signed by Chrissy Lombardo MD 10/21/24 13:14:
I saw and evaluated the patient independently. I reviewed the resident�s note and agree with findings and plan as documented by Dr. Fernandes.
GENERAL: well developed, well nourished, male in no apparent distress
HEENT: NC/AT--off O2 NC
HEART: regular rate and rhythm, +S1, +S2
LUNGS : clear to auscultation bilaterally
ABDOM: soft, nontender, nondistended, + bowel sounds
EXT: no cyanosis, clubbing-- 1-2+ LE edema bilaterally
NEUROLOGIC: grossly intact
Acute hypoxemic resp failure due to Acute on Chronic Congestive Heart Failure with reduced ejection fraction of 40% exacerbation--proBNP 2240--s/p lasix 40 mg IV x 1, pt 'told' us he would 'take' 20 mg lasix po daily (i have serious doubts that he
will) -- apprec cards----cont metoprolol--off O2
COPD (Possible exacerbation)--Patient improving with nebulizer treatment--wean O2--cont nebs and Anoro, Ellipta, Albuterol
Essential Hypertension--Continue home meds
Hypothyroidism--Continue thyroxine
Type 2 DM--SSI--Continue Glipizide, Farxiga--restart metformin
HLD--Continue atorvastatin
Paroxysmal Atrial fibrillation--Continue warfarin--follow INR
GERD--Continue PPI
DVT proph
code status--FULL CODE
OK for d/c
Original Note:
Today's Communication/Plan
-
Discharge today
Assessment / Plan
Assessment / Plan
Assessment
This is a 69 y/o male with pmhx of atrial fibrillation, hypothyroidism, congestive heart failure, COPD, essential hypertension, diabetes who presented to the ED on 10/19/2024 with shortness of breath that began that same morning around 5AM when he got
up to use the bathroom and persisted throughout the day.
Plan
Acute hypoxemia respiratory failure due to acute on chronic Congestive Heart Failure w/ reduced ejection fraction of 40%
-proBNP 2240 on admission
-Patient no longer requiring supplemental oxygen
-F/u with outpatient cardiology
-Prescribed furosemide 20mg PO once daily
-Continue metoprolol
COPD with possible exacerbation
-Improved post nebulizer treatments, patient no longer requiring supplemental oxygen
-Continue Nebulizers PRN for Shortness of breath and home medications (Anoro, Ellipta, Albuterol)
Essential Hypertension
-Continue home medications
Hypothyroidism
-Continue home medications (levothyroxine)
Type 2 diabetes
-Continue home medications (Glipizide, Farxiga, Metformin)
Hyperlipidemia
-Continue home medications (Atorvastation)
Paroxysmal Atrial Fibrillation
-Continue Warfarin
-Continue to follow INR
Gastroesophageal Reflux Disease
-Continue PPI
Anticipated Discharge: Today
Subjective/Interval History
-
Date of Service: October 21, 2024
Patient was sleeping when I came in to see him without supplemental oxygen. He states he is feeling much better now and does not have any shortness of breath or other concerns. He did report to me that he does not like taking furosemide and may
elect to not take it once at home. He was excited to go home.
Objective Data
-
Labs:
Laboratory Results
10/21/24
05:11
WBC 5.2
Hgb 11.8 L
Hct 35.7 L
Plt Count 181
PT 32.0 H
INR 3.07
APTT 39.9 H
Sodium 140
Potassium 4.3
Chloride 106
Carbon Dioxide 25
BUN 31 H
Creatinine 1.0
Glucose 251 H
Calcium 9.0
Vital Signs:
Vital Signs
Temp Pulse Resp BP Pulse Ox
98.4 F 65 18 167/80 95
10/21/24 03:40 10/21/24 03:40 10/21/24 03:40 10/21/24 03:40 10/21/24 03:40
I&O
10/20/24 10/21/24 10/22/24
06:59 06:59 06:59
Intake Total 960 / 960 960 / 960
Output Total 175 / 175
Balance 785 / 785 960 / 960
Review of Systems
-
History Source: Patient
Constitutional: Reports No Symptoms
Respiratory: Reports No Symptoms
Cardiac: Reports No Symptoms
Abdomen/GI: Reports No Symptoms
Skin: Reports No Symptoms
Neuro: Reports No Symptoms
Physical Exam
-
General: Well Developed, Well Nourished, No Apparent Distress and Morbidly Obese
Respiratory: Clear to Auscultation
Cardiac: Regular Rhythm and S1/S2
Musculoskeletal: Edema, Right Lower Extrem and Edema, Left Lower Extrem
Skin: Warm and Dry
Neuro: Awake, Alert and Oriented
Psych: Calm
[2024-10-21 07:45] VITALS: BP 138/78
[2024-10-21] MEDS: STRIVERDI RESPIMAT 2 PUFF INH (07:48)
[2024-10-21] MEDS: DUONEB 3 ML INH ×2 (07:48→11:25)
[2024-10-21] MEDS: PACERONE 200 MG PO (08:44)
[2024-10-21] MEDS: PROTONIX 40 MG PO (08:44)
[2024-10-21] MEDS: FARXIGA 10 MG PO (08:44)
[2024-10-21] MEDS: GLUCOTROL XL (EXTENDED RELEASE) 10 MG PO (08:44)
[2024-10-21] MEDS: LASIX 40 MG IV (08:46)
[2024-10-21] MEDS: TOPROL XL 25 MG PO (08:46)
[2024-10-21] MEDS: NOVOLOG FLEXPEN-LOW RESISTANCE 2 UNITS SC (09:38)
[2024-10-21 11:00] VITALS: BP 150/64
--- NOTE | 2024-10-21 12:38 | W.DCSUMMARY ---
Addendum entered and electronically signed by Chrissy Lombardo MD 10/21/24 13:17:
Read, reviewed, and agree. See same day progress note for additional details. Time spent coordinating care, DC planning, review of DC plan of care with resident, transition of care, review of records in EMR, med rec, consults, notes, d/w
consultants, nursing, family, and CM = 31 minutes
Original Note:
Discharge Summary
Discharge Data
Date of Admission: 10/19/24
Date of Discharge: 10/21/24
-
Pending Results: No
Hospital Course
This is a 69 y/o male with pmhx of atrial fibrillation, hypothyroidism, congestive heart failure with refusal to take furosemide in outpatient setting, COPD, essential hypertension, diabetes who presented to the ED on 10/19/2024 with shortness of
breath that began that same morning around 5AM when he got up to use the bathroom. He was able to return to sleep without difficulty, but when he woke up at 8AM he continued to feel short of breath.
In the ED he received dexamethasone, furosemide and nebulizers. He was started on O2, with a new requirement of 4L to keep his Oxygen saturation about 95%. And X-ray in the ED showed slightly increased pulmonary vascularity markings, and his BNP was
2240. By the next day had improved with the nebulizer treatments. Patient was seen by cardiology, who recommended furosemide. Patient has previously refused to take furosemide in the outpatient setting, but was willing to take one IV dose of lasix
40mg on 10/20/2024, and a low dose in the outpatient setting. By 10/21/2024 he no longer required supplemental oxygen. He was discharged to home with lasix 20mg PO once daily, and encouraged to follow up with his PCP in 1 week, as well as his
womens health nurse practitioner.
Discharge Plan
-
Patient Disposition: Home (Routine Discharge)
Discharge Diagnosis/Procedures: Acute hypoxemia respiratory failure due to acute on chronic CHF w/ reduced ejection fraction of 40%, COPD with possible exacerbation, Essential Hypertension, Hypothyroidism, Type 2 diabetes mellitus, Hyperlipidemia,
Paroxysmal Atrial Fibrillation, Gastroesophageal Reflux Disease
Diet: Low Sodium and No added salt
Activity: No restrictions
Driving Restrictions: As prior to admission
Instructions: *PCP/Other Inorganic Chemist Heart Failure Instructions
Referrals:
Sandra Shook CRNP [Specified Professional Personl, Cardiology] - 11/03/24 8:40 am
Jil Trotter PA [Family Provider, Family Practice] - in less than 1 week
Prescriptions:
New
furosemide [Lasix] 20 mg tablet
20 mg PO DAILY Qty: 7 0RF
Continued
amiodarone [Pacerone] 200 MG tablet
200 mg PO DAILY
glipizide 10 mg Tablet Extended Release 24hr
10 mg PO DAILY Qty: 0
dapagliflozin propanediol [Farxiga] 10 mg Tablet
10 mg PO DAILY Qty: 0
metoprolol succinate 50 MG tablet extended release 24 hr
50 mg PO HS
metoprolol succinate 25 mg Tablet Extended Release 24 Hr
25 mg PO DAILY
pantoprazole 40 mg Tablet,Delayed Release (Dr/Ec)
40 mg PO DAILY Qty: 30 0RF
levothyroxine 25 mcg Tablet
50 mcg PO DAILY
umeclidinium-vilanterol [Anoro Ellipta] 62.5-25 mcg/actuation Blister With Device
1 inh INHALATION R DAILY
metformin 1,000 mg tablet
1,000 mg PO BID
warfarin 5 mg Tablet
5 mg PO SUMOTUTHSA
Patient Comments:
10/19/2024, pt. takes around bedtime.
warfarin 5 mg Tablet
2.5 mg PO WEFR
Patient Comments:
10/19/2024, pt. takes around bedtime.
nystatin-triamcinolone 100,000-0.1 unit/g-% cream
1 applic TOPICAL HS
nystatin 100,000 unit/gram powder
1 applic TOPICAL HS
albuterol sulfate 90 mcg/actuation Hfa Aerosol Inhaler
2 puff INHALATION R Q6HPRN PRN (Reason: sob)
ketoconazole 2 % Cream
1 applic TOPICAL DAILYPRN PRN (Reason: apply to groin)
atorvastatin 80 MG tablet
80 mg PO HS
Discharge Orders:
Discharge Patient (As Directed); Ordered 10/21/24
Ordered By: Niki Fernandes
Discharge Date and Time
Print Language: AMERICAN
[2024-10-24 13:15] LABS: Glucose - Point of Care 280 mg/dl (70-99)
== END 2024-10-21 13:00 | disposition home or self-care (01) | DRG 291 ==
LOC: 3 WEST ACU 14:22
PROVIDERS: Registered Nurse; ADMITTING PHYSICIAN Hospitalist; ATTENDING PHYSICIAN Internal Medicine; CONSULT PHYSICIAN Internal Medicine; EMERGENCY PHYSICIAN Emergency Medicine; FAMILY PHYSICIAN Physician Assistant
DX: I11.0 Hypertensive heart disease with heart failure (principal); J96.01 Acute respiratory failure with hypoxia; J44.1 Chronic obstructive pulmonary disease with (acute) exacerbation; Z68.41 Body mass index [BMI] 40.0-44.9, adult; I50.22 Chronic systolic (congestive) heart failure; E03.9 Hypothyroidism, unspecified; E78.5 Hyperlipidemia, unspecified; I48.0 Paroxysmal atrial fibrillation; K21.9 Gastro-esophageal reflux disease without esophagitis; E11.9 Type 2 diabetes mellitus without complications; Z79.84 Long term (current) use of oral hypoglycemic drugs; Z79.890 Hormone replacement therapy; Z79.01 Long term (current) use of anticoagulants; Z79.899 Other long term (current) drug therapy; I25.10 Atherosclerotic heart disease of native coronary artery without angina pectoris; Z87.891 Personal history of nicotine dependence; Z95.5 Presence of coronary angioplasty implant and graft; Z85.828 Personal history of other malignant neoplasm of skin; I25.5 Ischemic cardiomyopathy; J43.9 Emphysema, unspecified; Z91.199 Patient's noncompliance with other medical treatment and regimen due to unspecified reason; E66.01 Morbid (severe) obesity due to excess calories
CPT/HCPCS: 71045; 80048; 80053; 80061; 82962; 83036; 83605; 83735; 83880; 84443; 84484; 85025; 85027; 85610; 85730; 86803; 93005; 94640; 96374; 96375; 99285

== ENCOUNTER → 2024-10-31 16:03 | Outpatient (REF) | payer MEDICARE, OTHER, SELFPAY ==
[2024-10-31 17:17] LABS: Hematocrit 43.6 % (39.0-52.0); Hemoglobin 13.9 g/dL (13.0-18.0); Mean Corp Hgb Conc. 31.9 g/dL (33.0-37.0); Mean Corpuscular Volume 83.5 fL (80.0-94.0); Nucleated Red Blood Cells % 0 % (-); Platelet Count 189 10^3/uL (130-400); Red Cell Dist. Width 17.0 % (11.5-14.5)
[2024-10-31 17:28] LABS: ALT (SGPT) 132 U/L (0-50); AST (SGOT) 53 U/L (17-59); Albumin 4.3 g/dl (3.5-5.0); Alkaline Phosphatase 179 U/L (38-126); Blood Urea Nitrogen 24 mg/dl (9-20); Calcium 9.4 mg/dl (8.4-10.2); Carbon Dioxide 28 mmol/L (22-30); Chloride 103 mmol/L (98-107); Glucose 294 mg/dl (70-99); Potassium 4.6 mmol/L (3.5-5.1); Sodium 139 mmol/L (135-145); Total Protein 7.2 g/dl (6.3-8.2); eGFR > 60.00
[2024-10-31 17:39] LABS: TSH 10.00 uIU/ml (0.47-4.68)
== END ==
LOC: REG 16:03
PROVIDERS: ATTENDING PHYSICIAN Internal Medicine Hematology & Oncology; FAMILY PHYSICIAN Physician Assistant
DX: C79.9 Secondary malignant neoplasm of unspecified site (principal); R59.9 Enlarged lymph nodes, unspecified; L02.214 Cutaneous abscess of groin; R88.8 Abnormal findings in other body fluids and substances; R97.0 Elevated carcinoembryonic antigen [CEA]; C44.82 Squamous cell carcinoma of overlapping sites of skin
CPT/HCPCS: 36415; 80053; 84443; 85025

== ENCOUNTER → 2024-11-07 10:40 | Outpatient (REF) | payer MEDICARE, OTHER, SELFPAY ==
[2024-11-07 11:24] LABS: Hematocrit 42.7 % (39.0-52.0); Hemoglobin 13.5 g/dL (13.0-18.0); Mean Corp Hgb Conc. 31.6 g/dL (33.0-37.0); Mean Corpuscular Volume 83.9 fL (80.0-94.0); Nucleated Red Blood Cells % 0 % (-); Platelet Count 187 10^3/uL (130-400); Red Cell Dist. Width 16.8 % (11.5-14.5)
[2024-11-07 11:31] LABS: INR 2.48; PT 26.9 Sec (11.4-14.6)
[2024-11-07 11:32] LABS: APTT 44.2 Sec (23.4-35.0)
[2024-11-07 11:54] LABS: ALT (SGPT) 57 U/L (0-50); AST (SGOT) 32 U/L (17-59); Albumin 4.2 g/dl (3.5-5.0); Alkaline Phosphatase 121 U/L (38-126); Blood Urea Nitrogen 21 mg/dl (9-20); Calcium 8.9 mg/dl (8.4-10.2); Carbon Dioxide 28 mmol/L (22-30); Chloride 105 mmol/L (98-107); Glucose 196 mg/dl (70-99); Potassium 4.6 mmol/L (3.5-5.1); Sodium 141 mmol/L (135-145); Total Protein 7.0 g/dl (6.3-8.2); eGFR > 60.00
[2024-11-07 12:22] LABS: TSH 11.80 uIU/ml (0.47-4.68)
== END ==
LOC: REG 10:40
PROVIDERS: ATTENDING PHYSICIAN Internal Medicine Hematology & Oncology; FAMILY PHYSICIAN Physician Assistant; OTHER PHYSICIAN Nurse Practitioner
DX: C79.9 Secondary malignant neoplasm of unspecified site (principal); R59.9 Enlarged lymph nodes, unspecified; L02.214 Cutaneous abscess of groin; R88.8 Abnormal findings in other body fluids and substances; R97.0 Elevated carcinoembryonic antigen [CEA]; C44.82 Squamous cell carcinoma of overlapping sites of skin; I50.20 Unspecified systolic (congestive) heart failure; I48.0 Paroxysmal atrial fibrillation
CPT/HCPCS: 36415; 80053; 84443; 85025; 85610; 85730

== ENCOUNTER → 2024-11-28 16:22 | Outpatient (REF) | payer MEDICARE, OTHER, SELFPAY ==
[2024-11-28 16:58] LABS: Hematocrit 40.7 % (39.0-52.0); Hemoglobin 13.2 g/dL (13.0-18.0); Mean Corp Hgb Conc. 32.4 g/dL (33.0-37.0); Mean Corpuscular Volume 82.6 fL (80.0-94.0); Nucleated Red Blood Cells % 0 % (-); Platelet Count 191 10^3/uL (130-400); Red Cell Dist. Width 16.5 % (11.5-14.5)
[2024-11-28 17:19] LABS: ALT (SGPT) 23 U/L (0-50); AST (SGOT) 25 U/L (17-59); Albumin 4.1 g/dl (3.5-5.0); Alkaline Phosphatase 78 U/L (38-126); Blood Urea Nitrogen 19 mg/dl (9-20); Calcium 9.0 mg/dl (8.4-10.2); Carbon Dioxide 23 mmol/L (22-30); Chloride 103 mmol/L (98-107); Glucose 224 mg/dl (70-99); Potassium 4.5 mmol/L (3.5-5.1); Sodium 137 mmol/L (135-145); Total Protein 6.7 g/dl (6.3-8.2); eGFR > 60.00
[2024-11-28 17:49] LABS: TSH 7.52 uIU/ml (0.47-4.68)
== END ==
LOC: REG 16:22
PROVIDERS: ATTENDING PHYSICIAN Internal Medicine Hematology & Oncology; FAMILY PHYSICIAN Physician Assistant
DX: C79.9 Secondary malignant neoplasm of unspecified site (principal); R59.9 Enlarged lymph nodes, unspecified; L02.214 Cutaneous abscess of groin; R88.8 Abnormal findings in other body fluids and substances; R97.0 Elevated carcinoembryonic antigen [CEA]; C44.82 Squamous cell carcinoma of overlapping sites of skin
CPT/HCPCS: 36415; 80053; 84443; 85025

== ENCOUNTER → 2024-12-20 10:03 | Outpatient (REF) | payer MEDICARE, OTHER, SELFPAY ==
[2024-12-20 11:32] LABS: Hematocrit 41.8 % (39.0-52.0); Hemoglobin 13.5 g/dL (13.0-18.0); Mean Corp Hgb Conc. 32.3 g/dL (33.0-37.0); Mean Corpuscular Volume 81.6 fL (80.0-94.0); Nucleated Red Blood Cells % 0 % (-); Platelet Count 198 10^3/uL (130-400); Red Cell Dist. Width 16.2 % (11.5-14.5)
[2024-12-20 12:36] LABS: ALT (SGPT) 32 U/L (0-50); AST (SGOT) 30 U/L (17-59); Albumin 4.4 g/dl (3.5-5.0); Alkaline Phosphatase 67 U/L (38-126); Blood Urea Nitrogen 21 mg/dl (9-20); Calcium 9.4 mg/dl (8.4-10.2); Carbon Dioxide 28 mmol/L (22-30); Chloride 103 mmol/L (98-107); Glucose 142 mg/dl (70-99); Potassium 4.5 mmol/L (3.5-5.1); Sodium 141 mmol/L (135-145); Total Protein 7.2 g/dl (6.3-8.2); eGFR > 60.00
[2024-12-20 12:53] LABS: TSH 11.00 uIU/ml (0.47-4.68)
== END ==
LOC: REG 10:03
PROVIDERS: ATTENDING PHYSICIAN Internal Medicine Hematology & Oncology; FAMILY PHYSICIAN Physician Assistant
DX: C79.9 Secondary malignant neoplasm of unspecified site (principal); R59.9 Enlarged lymph nodes, unspecified; L02.214 Cutaneous abscess of groin; R88.8 Abnormal findings in other body fluids and substances; R97.0 Elevated carcinoembryonic antigen [CEA]; C44.82 Squamous cell carcinoma of overlapping sites of skin
CPT/HCPCS: 36415; 80053; 84443; 85025

== ENCOUNTER → 2025-01-02 10:51 | Outpatient (REF) | payer MEDICARE, OTHER, SELFPAY ==
[2025-01-02 10:37] LABS: Glucose 114 mg/dl (70-99)
== END ==
LOC: PET 10:51
PROVIDERS: ATTENDING PHYSICIAN Nurse Practitioner Adult Health; REFERRING PHYSICIAN Internal Medicine Hematology & Oncology
DX: C44.82 Squamous cell carcinoma of overlapping sites of skin (principal); R59.9 Enlarged lymph nodes, unspecified; L02.214 Cutaneous abscess of groin; R88.8 Abnormal findings in other body fluids and substances; R97.0 Elevated carcinoembryonic antigen [CEA]; C79.9 Secondary malignant neoplasm of unspecified site
CPT/HCPCS: 36415; 82947

== ENCOUNTER → 2025-01-09 11:30 | Outpatient (REF) | payer MEDICARE, OTHER, SELFPAY ==
[2025-01-09 12:22] LABS: Hematocrit 42.2 % (39.0-52.0); Hemoglobin 13.6 g/dL (13.0-18.0); Mean Corp Hgb Conc. 32.2 g/dL (33.0-37.0); Mean Corpuscular Volume 82.4 fL (80.0-94.0); Nucleated Red Blood Cells % 0 % (-); Platelet Count 201 10^3/uL (130-400); Red Cell Dist. Width 16.8 % (11.5-14.5)
[2025-01-09 12:33] LABS: Albumin 4.5 g/dl (3.5-5.0); Carbon Dioxide 28 mmol/L (22-30)
[2025-01-09 12:44] LABS: ALT (SGPT) 27 U/L (0-50); AST (SGOT) 28 U/L (17-59); Alkaline Phosphatase 72 U/L (38-126); Blood Urea Nitrogen 19 mg/dl (9-20); Calcium 9.7 mg/dl (8.4-10.2); Chloride 103 mmol/L (98-107); Glucose 127 mg/dl (70-99); Potassium 4.5 mmol/L (3.5-5.1); Sodium 140 mmol/L (135-145); eGFR > 60.00
[2025-01-09 13:02] LABS: TSH 5.54 uIU/ml (0.47-4.68)
[2025-01-09 13:10] LABS: Total Protein 7.9 g/dl (6.3-8.2)
== END ==
LOC: REG 11:30
PROVIDERS: ATTENDING PHYSICIAN Internal Medicine Hematology & Oncology; FAMILY PHYSICIAN Physician Assistant
DX: C79.9 Secondary malignant neoplasm of unspecified site (principal); R59.9 Enlarged lymph nodes, unspecified; L02.214 Cutaneous abscess of groin; R88.8 Abnormal findings in other body fluids and substances; R97.0 Elevated carcinoembryonic antigen [CEA]; C44.82 Squamous cell carcinoma of overlapping sites of skin
CPT/HCPCS: 36415; 80053; 84443; 85025

== ENCOUNTER → 2025-01-30 17:08 | Outpatient (REF) | payer MEDICARE, OTHER, SELFPAY ==
[2025-01-30 17:48] LABS: Hematocrit 43.3 % (39.0-52.0); Hemoglobin 14.2 g/dL (13.0-18.0); Mean Corp Hgb Conc. 32.8 g/dL (33.0-37.0); Mean Corpuscular Volume 81.2 fL (80.0-94.0); Nucleated Red Blood Cells % 0 % (-); Platelet Count 215 10^3/uL (130-400); Red Cell Dist. Width 16.8 % (11.5-14.5)
[2025-01-30 17:59] LABS: ALT (SGPT) 40 U/L (0-50); AST (SGOT) 36 U/L (17-59); Albumin 4.6 g/dl (3.5-5.0); Alkaline Phosphatase 74 U/L (38-126); Blood Urea Nitrogen 26 mg/dl (9-20); Calcium 9.3 mg/dl (8.4-10.2); Carbon Dioxide 25 mmol/L (22-30); Chloride 103 mmol/L (98-107); Glucose 129 mg/dl (70-99); Potassium 4.6 mmol/L (3.5-5.1); Sodium 139 mmol/L (135-145); Total Protein 7.6 g/dl (6.3-8.2); eGFR 59.10
[2025-01-30 18:29] LABS: TSH 5.17 uIU/ml (0.47-4.68)
== END ==
LOC: REG 17:08
PROVIDERS: ATTENDING PHYSICIAN Internal Medicine Hematology & Oncology; FAMILY PHYSICIAN Physician Assistant
DX: L02.214 Cutaneous abscess of groin (principal); C79.9 Secondary malignant neoplasm of unspecified site; R59.9 Enlarged lymph nodes, unspecified; R88.8 Abnormal findings in other body fluids and substances; R97.0 Elevated carcinoembryonic antigen [CEA]; C44.82 Squamous cell carcinoma of overlapping sites of skin
CPT/HCPCS: 36415; 80053; 84443; 85025

== ENCOUNTER → 2025-02-20 17:01 | Outpatient (REF) | payer MEDICARE, OTHER, SELFPAY ==
[2025-02-20 17:48] LABS: Hematocrit 45.5 % (39.0-52.0); Hemoglobin 14.6 g/dL (13.0-18.0); Mean Corp Hgb Conc. 32.1 g/dL (33.0-37.0); Mean Corpuscular Volume 83.8 fL (80.0-94.0); Nucleated Red Blood Cells % 0 % (-); Platelet Count 229 10^3/uL (130-400); Red Cell Dist. Width 17.2 % (11.5-14.5)
[2025-02-20 18:13] LABS: ALT (SGPT) 27 U/L (0-50); AST (SGOT) 31 U/L (17-59); Albumin 4.6 g/dl (3.5-5.0); Alkaline Phosphatase 74 U/L (38-126); Blood Urea Nitrogen 27 mg/dl (9-20); Calcium 9.5 mg/dl (8.4-10.2); Carbon Dioxide 22 mmol/L (22-30); Chloride 101 mmol/L (98-107); Glucose 94 mg/dl (70-99); Potassium 4.2 mmol/L (3.5-5.1); Sodium 135 mmol/L (135-145); Total Protein 7.8 g/dl (6.3-8.2); eGFR 54.07
[2025-02-20 18:43] LABS: TSH 4.36 uIU/ml (0.47-4.68)
== END ==
LOC: REG 17:01
PROVIDERS: ATTENDING PHYSICIAN Internal Medicine Hematology & Oncology; FAMILY PHYSICIAN Physician Assistant
DX: C79.9 Secondary malignant neoplasm of unspecified site (principal); R59.9 Enlarged lymph nodes, unspecified; L02.214 Cutaneous abscess of groin; R88.8 Abnormal findings in other body fluids and substances; R97.0 Elevated carcinoembryonic antigen [CEA]; C44.82 Squamous cell carcinoma of overlapping sites of skin
CPT/HCPCS: 36415; 80053; 84443; 85025

== ENCOUNTER → 2025-02-21 10:08 | Outpatient (REF) | payer MEDICARE, OTHER, SELFPAY ==
[2025-02-21 10:57] LABS: Hematocrit 42.6 % (39.0-52.0); Hemoglobin 13.9 g/dL (13.0-18.0); Mean Corp Hgb Conc. 32.6 g/dL (33.0-37.0); Mean Corpuscular Volume 81.6 fL (80.0-94.0); Nucleated Red Blood Cells % 0 % (-); Platelet Count 193 10^3/uL (130-400); Red Cell Dist. Width 16.9 % (11.5-14.5)
[2025-02-21 11:23] LABS: ALT (SGPT) 26 U/L (0-50); AST (SGOT) 28 U/L (17-59); Albumin 4.5 g/dl (3.5-5.0); Alkaline Phosphatase 77 U/L (38-126); Blood Urea Nitrogen 28 mg/dl (9-20); Calcium 9.6 mg/dl (8.4-10.2); Carbon Dioxide 26 mmol/L (22-30); Chloride 99 mmol/L (98-107); Glucose 122 mg/dl (70-99); HDL Cholesterol 54 mg/dl; LDL Cholesterol, Calculated 59 mg/dl; Potassium 4.7 mmol/L (3.5-5.1); Sodium 135 mmol/L (135-145); Total Protein 7.6 g/dl (6.3-8.2); Very Low Density Lipoprotein 26 mg/dl (0-30); eGFR 59.10
[2025-02-21 11:32] LABS: Glycohemoglobin (HgbA1c) 7.2 % (4.0-5.9)
[2025-02-21 11:55] LABS: TSH 4.00 uIU/ml (0.47-4.68)
== END ==
LOC: REG 10:08
PROVIDERS: ATTENDING PHYSICIAN Physician Assistant
DX: Z95.5 Presence of coronary angioplasty implant and graft (principal); I48.0 Paroxysmal atrial fibrillation; I50.22 Chronic systolic (congestive) heart failure; J44.9 Chronic obstructive pulmonary disease, unspecified; I25.5 Ischemic cardiomyopathy; I25.2 Old myocardial infarction; I25.10 Atherosclerotic heart disease of native coronary artery without angina pectoris; E78.5 Hyperlipidemia, unspecified; E11.69 Type 2 diabetes mellitus with other specified complication; C44.92 Squamous cell carcinoma of skin, unspecified; C44.319 Basal cell carcinoma of skin of other parts of face; Z79.01 Long term (current) use of anticoagulants; E66.01 Morbid (severe) obesity due to excess calories; Z68.41 Body mass index [BMI] 40.0-44.9, adult; E66.813 Obesity, class 3; K64.0 First degree hemorrhoids; E03.9 Hypothyroidism, unspecified
CPT/HCPCS: 36415; 80053; 80061; 83036; 84439; 84443; 85025

== ENCOUNTER → 2025-03-13 10:52 | Outpatient (REF) | payer MEDICARE, OTHER, SELFPAY ==
[2025-03-13 11:51] LABS: Hematocrit 44.3 % (39.0-52.0); Hemoglobin 13.9 g/dL (13.0-18.0); Mean Corp Hgb Conc. 31.4 g/dL (33.0-37.0); Mean Corpuscular Volume 84.9 fL (80.0-94.0); Nucleated Red Blood Cells % 0 % (-); Platelet Count 205 10^3/uL (130-400); Red Cell Dist. Width 16.9 % (11.5-14.5)
[2025-03-13 12:12] LABS: ALT (SGPT) 31 U/L (0-50); AST (SGOT) 28 U/L (17-59); Albumin 4.5 g/dl (3.5-5.0); Alkaline Phosphatase 70 U/L (38-126); Blood Urea Nitrogen 26 mg/dl (9-20); Calcium 9.5 mg/dl (8.4-10.2); Carbon Dioxide 29 mmol/L (22-30); Chloride 102 mmol/L (98-107); Glucose 131 mg/dl (70-99); Potassium 4.7 mmol/L (3.5-5.1); Sodium 139 mmol/L (135-145); Total Protein 7.6 g/dl (6.3-8.2); eGFR > 60.00
== END ==
LOC: REG 10:52
PROVIDERS: ATTENDING PHYSICIAN Internal Medicine Hematology & Oncology
DX: C79.9 Secondary malignant neoplasm of unspecified site (principal); R59.9 Enlarged lymph nodes, unspecified; L02.214 Cutaneous abscess of groin; R88.8 Abnormal findings in other body fluids and substances; R97.0 Elevated carcinoembryonic antigen [CEA]; C44.82 Squamous cell carcinoma of overlapping sites of skin
CPT/HCPCS: 36415; 80053; 85025